=== PATIENT | male | born 1955 | race Caucasian/White ===

== ENCOUNTER 2021-02-22 14:00 | Outpatient (RCR) | payer MEDICAID, SELFPAY | END 2021-02-22 23:59 | disposition home or self-care (01) | LOC: ANHAUDIO 14:00 | PROVIDERS: PCP Internal Medicine; Visit Provider Otolaryngology | DX: Z46.1 Encounter for fitting and adjustment of hearing aid (principal) | CPT/HCPCS: 99199; V5160; V5261 ==

== ENCOUNTER 2021-08-25 15:01 | Inpatient (IN) | payer MEDICARE, MEDICAID, SELFPAY ==
--- NOTE | ~2021-08-25 | US_ITS ---
EXAMINATION: US renal BI DATE: 08/26/2021 09:58 INDICATION: Acute renal insufficiency TECHNIQUE: Multiple ultrasound grayscale images of the kidneys were obtained. COMPARISON: CT dated 08/25/2021 FINDINGS: The right kidney measures 12.1 x 5.1 x 6.4 cm. The left kidney measures 12.2 x 5.7 x 5.4 cm. The kidn eys demonstrate normal echogenicity. There is chronic caliectasis at the right kidney without abnorma l dilation of the renal pelvis. There is diffuse mild cortical thinning at the right kidney. There is no left hydronephrosis.. No stones identified. The bladder is normal with bilateral ureteral jets s een in the bladder on color Doppler. Increased hepatic echogenicity consistent with diffuse hepatic s teatosis. IMPRESSION: 1. Chronic severe caliectasis and mild cortical atrophy of the right kidney. Reviewed, dictated and finalized at location A.
--- NOTE | ~2021-08-25 | CT_ITS ---
EXAMINATION: CT abdomen pelvis wo con DATE: 08/25/2021 17:45 INDICATION: Abdominal pain. TECHNIQUE: Computed tomography (CT) of the abdomen and pelvis was performed without intravenous contr ast. Automated exposure control and iterative reconstruction technique were employed. The dose-length product was 1143.96 mGy-cm. COMPARISON: CT abdomen and pelvis 07/06/2016 FINDINGS: The visualized portions of the lung bases demonstrate mild atelectasis. No pleural effusion . The heart size is normal. There are calcifications of the aortic valve. No pericardial effusion. Th ere is diffuse hepatic steatosis. Calcifications in the spleen are consistent with old granulomatous disease. The gallbladder, pancreas, and adrenal glands are normal. There is a 12 mm cyst in left kidn ey. There is cortical thinning of right kidney. There are seven stones in right kidney measuring up t o 11 mm. There is chronic enlargement of the calyces of right kidney. There is contrast in the right renal collecting system and bladder. The prostate is mildly enlarged. The appendix is normal. There a re no dilated loops of bowel. There is prominent fat in the inguinal canals bilaterally that may be s mall hernias. There is subcutaneous gas in left lower quadrant. There is severe lumbar spondylosis. IMPRESSION: 1. Nonobstructing right kidney stones. 2. Mild atrophy of right kidney. Chronic severe dilatation of the calyces in right kidney. 3. Subcutaneous gas in left lower quadrant, which may be an injection site. Reviewed, dictated and finalized at location A. IMPRESSION: 1. Nonobstructing right kidney stones. 2. Mild atrophy of right kidney. Chronic severe dilatation of the calyces in ri ght kidney. 3. Subcutaneous gas in left lower quadrant, which may be an injection site.
--- NOTE | ~2021-08-25 | XR_ITS ---
EXAMINATION: XR chest 1V portable DATE: 08/25/2021 16:12 INDICATION: Stupor. Dizziness. TECHNIQUE: A single frontal view of the chest was obtained. COMPARISON: Chest 2 views 07/06/2016, chest CT 07/06/2016 FINDINGS: There are lucencies in the lungs, consistent with emphysema. No pleural effusion or pneumot horax. The heart size is normal. IMPRESSION: 1. Emphysema. Reviewed, dictated and finalized at location A. IMPRESSION: 1. Emphysema.
[2021-08-25 14:58] VITALS: BP 125/67; PULSE 79; RESP 20; TEMP 36.6; O2SAT 92
[2021-08-25 16:53] LABS: Basophils Absolute Auto 0.1 K/mm3 (0.0-0.1); Basophils Percent Auto 0.4 % (0.2-1.2); Eosinophils Absolute Auto 0.2 K/mm3 (0-0.3); Eosinophils Percent Auto 1.4 % (0-4.4); Hematocrit 41.9 % (42.0-52.0); Hemoglobin 13.9 g/dL (14.0-18.0); Immature Granulocyte Absolute 0.08 K/mm3 (0.00-0.031); Immature Granulocyte Percent A 0.6 % (0-0.5); Lymphocytes Absolute Auto 1.11 K/mm3 (0.9-3.2); Lymphocytes Percent Auto 8.9 % (18.3-44.2); Mean Corpuscular HGB Conc 33.2 g/dl (32-36); Mean Corpuscular Volume 93.3 fl (80-100); Mean Platelet Volume 9.7 fl (7.4-10.4); Monocytes Absolute Auto 1.3 K/mm3 (0.1-0.6); Monocytes Percent Auto 10.1 % (2.6-8.5); Neutrophils Absolute Auto 9.8 K/mm3 (1.3-6.7); Neutrophils Percent Auto 78.6 % (45.5-73.1); Platelet Count Result 303 k/mm3 (150-375); Red Blood Count 4.49 M/mm3 (4.6-6.20); Red Cell Distribution Width 14.1 % (11.5-14.5); White Blood Count 12.4 K/mm3 (4.5-10.0)
[2021-08-25 17:03] LABS: Alanine Aminotransferase 22 U/L (4-50); Albumin Level 4.4 g/dL (3.5-5.1); Alkaline Phosphatase 126 U/L (38-126); Anion Gap 8 mmol/L (8-16); Aspartate Amino Transferase 37 U/L (17-59); Bilirubin,Total 0.5 mg/dL (0.2-1.3); Blood Urea Nitrogen 31 mg/dL (9-20); Calcium 8.7 mg/dL (8.4-10.2); Carbon Dioxide 25 mmol/L (22-30); Chloride 102 mmol/L (98-107); Estimated CRCL calculation 28 ml/min; Estimated Glomerular Filt Rate 24; Glucose 120 mg/dL (65-110); Lipase 146 U/L (23-300); Potassium 4.5 mmol/L (3.4-5.0); Sodium 135 mmol/L (137-145)
[2021-08-25] MEDS: SODIUM CHLORIDE 0.9% IV 1,000 ML 999 ML IV CONT (17:08)
--- NOTE | 2021-08-25 18:24 | ED.ABDPAIN ---
HPI - Abdominal Pain General Chief Complaint: Abdominal Pain Stated Complaint: weakness & dizziness Time Seen by Provider: 08/25/21 15:19 Source: patient Mode of arrival: ambulatory Limitations: no limitations History of Present Illness HPI narrative: 66-year-old male poor historian left AMA from [facility] yesterday returning today because he said there is something wrong with his blood or abnormal labs and they had wanted him to stay. No fever, no vomiting, does complain of diffuse abdominal pain worse with movement over the last day prior to arrival. No hematemesis no bright red blood per rectum no melena. Patient states he was seen for chest pain and they wanted him to stay-- no chest pain currently. No shortness of breath, no fever. No other complaints. Pertinent past history: kidney stones Onset (ago): day(s) (1) Quality: cramping Exacerbating factors: movement Relieving factors: rest Associated symptoms: denies other symptoms and constipation Related Data Home Medications Medication Instructions Recorded Confirmed Saulkyebernadine Aerosphere 1 inh INHALATION Q6-8H PRN 08/25/21 08/25/21 allopurinol 100 mg PO DAILY 08/25/21 08/25/21 amlodipine 2.5 mg PO DAILY 08/25/21 08/25/21 finasteride 5 mg PO DAILY 08/25/21 08/25/21 gabapentin 300 mg PO HS 08/25/21 08/25/21 lisinopril 10 mg PO DAILY 08/25/21 08/25/21 metoprolol succinate 25 mg PO DAILY 08/25/21 08/25/21 prednisone 20 mg PO BID 08/25/21 08/25/21 quetiapine 50 mg PO HS 08/25/21 08/25/21 rosuvastatin 10 mg PO DAILY 08/25/21 08/25/21 tamsulosin 0.4 mg PO HS 08/25/21 08/25/21 Allergies Allergy/AdvReac Type Severity Reaction Status Date / Time poison isabelle extract Allergy Mild RASH Verified 08/25/21 20:12 Review of Systems Review of Systems: CONSTITUTIONAL: no fever, no weight loss, no confusion EYES: no vision changes, no eye pain ENT: no rhinorrhea, no sore throat, no difficulty swallowing CARDIOVASCULAR: no chest pain, no leg edema, no palpitations RESPIRATORY: positive for cough, no shortness of breath, no hemoptysis GASTROINTESTINAL: positive for abdominal pain, no nausea, no vomiting, no diarrhea GENITOURINARY: no flank pain, no dysuria, no hematuria SKIN: no rash, no jaundice MUSCULOSKELETAL: no back pain, no trauma. NEUROLOGIC: No headache, no dizziness, no focal weakness PSYCHIATRIC: No hallucinations, no suicidal ideation PMFSH Past Medical History Medical History BPH (benign prostatic hyperplasia) CAD (coronary artery disease) Minimal blockages treated medically Chronic back pain Due to a pinched nerve COPD (chronic obstructive pulmonary disease) Gout Hyperlipidemia Hypertension Surgical History Surgical History H/O cardiac catheterization Minimal blockages. History of kidney surgery Right kidney History of shoulder surgery On the left Family History Family History Mother Family history of malignant neoplasm of breast in first degree relative Father Family history of throat cancer Sibling Cancer of back Social History Social History Social History: The patient is . He does have a significant other. Is a son and a daughter. The son is the durable power civil litigation attorney for healthcare. The patient is listed as a full code. The patient was a heavy smoker and stated that he quit smoking about 4 months ago. The patient is retired from the [employer]. The patient stated that he drinks 15 beers in a 3 week period. Smoking packs per day: 1.5 Smoking cigarettes per day: 30.0 Years smoked: 30 Smoking pack-years: 45.00 Smoking status: Former smoker Tobacco type: cigarettes Second hand tobacco smoke exposure: Yes Smoking end date: 11/18/04 Alcohol intake: current Drinks per week: 3 Substance use: lj
[2021-08-25 18:32] LABS: Add Urine Microscopic? YES; Appearance Urine Clear (Clear); Bilirubin Urine Negative (Negative); Blood Urine Negative (Negative); Color Urine Amber (Yellow); Glucose Urine UA Negative (Negative); Ketones Urine Negative (Negative); Leukocyte Esterase Ur Trace LEU/UL (Negative); Mucus Urine Moderate /lpf; Nitrate Urine Negative (Negative); Protein Urine 2+ mg/dL (Negative); Specific Grav Ur 1.026 (1.001-1.035); Squamous Epithelial Cell Urine Rare /hpf (Few); Urobilinogen Urine Negative mg/dL (<2.0); WBC Urine 21-30 /hpf
--- NOTE | 2021-08-25 18:53 | PC.NURSE ---
Pt poor historian and does not know what medications he takes. Recently filled medications pulled from pharmacy record. EDP aware
--- NOTE | 2021-08-25 20:15 | ADMGEN ---
This patient, Renato García, was admitted to Medical Room 345-01. Patient/family oriented to hospital policies and general routines including ID bracelet, bed and alarms, visiting hours, pain management, procedures, bathroom and other care routines, personal items, smoking policy, room service/diet, and visiting hours. Information on how to activate the Rapid Response Team has been discussed. Patient/Family are encouraged to report perceived risks to care and to ask questions if they do not understand what they are told or what they should do.
[2021-08-25 20:47] VITALS: BP 109/69; PULSE 62; RESP 20; TEMP 36.3; O2SAT 95
--- NOTE | 2021-08-25 23:37 | PM.IMHP ---
H&P: HPI History of Present Illness Date/Time: 08/25/21 23:37 this is a 66-year-old male patient who has a past medical history of having COPD, hypertension, and coronary artery disease. The patient stated that he did several things with his grand children today and he was visiting his girlfriend when he felt ill. The patient felt really dizzy and his ears started to ring the patient stated that he felt like he was going to pass out fell down to his knees. His family got him on the couch and they were going to drive him to the hospital. The patient stated that he had severe abdominal pain. The patient stated that he was at [facility] last night and was told that he has an infection. He stated that he did not sign out against medical advice but he convinced ER doctor to let him go home. The patient stated that he had some abnormal labs but he was not sure what were. 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 Patient denies knowing about any kidney stones. His white count was noted to be 12.5. H&H is 13.9 and 41.9 the patient has been on prednisone but does not recall how long he has been on it when he started taking it. His CT of the abdomen pelvis was read as nonobstructing right kidney stone. Mild atrophy of right kidney, chronic severe dilatation of the calcis is in right kidney. Subcutaneous gas and left lower quadrant which may be an injection site. Chest x-ray was read as emphysema. His urine had trace leukocyte Estrace 2130 wbc's and moderate amount of mucus. The patient was started on ceftriaxone and IV fluids. The patient is being admitted to inpatient services on the date of service of 08/25/2020 Chief Complaint: Abdominal pain weakness Review of Systems Review of Systems: All systems reviewed & are unremarkable except as noted in HPI and below Constitutional: Constitutional: Reports as per HPI and Reports no additional constitutional complaints Eyes: Eyes: Reports as per HPI and Reports no additional eye complaints ENT: Reports system reviewed and no additional complaints, except as documented and Reports Normal hearing present Cardiovascular: Cardiovascular: Reports no additional cardiovascular complaints Respiratory: Respiratory: Reports no additional respiratory complaints and Reports no additional respiratory complaints Gastrointestinal: Gastrointestinal: Reports as per HPI and Reports no additional gastrointestinal complaints Musculoskeletal: Musculoskeletal: Reports no additional musculoskeletal complaints Integumentary/Breasts: Skin/Breast: Reports system reviewed and no additional complaints, except as docu and Reports as per HPI Neurologic: Reports system reviewed and no additional complaints, except as documented, Reports as per HPI and Reports Normal hearing present Psychiatric: Psychiatric: Reports no additional psychiatric complaints and Reports as per HPI Endocrine: Endocrine: Reports no additional endocrine complaints Hematologic/Lymphatic: Hematologic/Lymphatic: Reports no additional hematologic/lymphatic complaints Allergic/Immunologic: Allergic/Immunologic: Reports no additional allergic/immunologic complaints [facility] Past Medical History Medical History (Updated 08/25/21 @ 23:57 by Augustina Starkey NP) BPH (benign prostatic hyperplasia) CAD (coronary artery disease) Minimal blockages treated medically Chronic back pain Due to a pinched nerve COPD (chronic obstructive pulmonary disease) Gout Hyperlipidemia Hypertension Surgical History Surgical History (Updated 08/25/21 @ 23:46 by Augustina Starkey NP) H/O cardiac catheterization Minimal blockages. History of kidney surgery Right kidney History of shoulder surgery On the left Family History Family History (Reviewed
[2021-08-25] MEDS: TAMSULOSIN HCL 0.4 MG CAPSULE PO (23:57)
[2021-08-25] MEDS: ATORVASTATIN 40 MG TABLET PO (23:57)
[2021-08-25] MEDS: QUEtiapine FUMARATE 25 MG TABLET 50 MG PO (23:57)
[2021-08-25] MEDS: GABAPENTIN 300 MG CAPSULE PO (23:57)
[2021-08-26] VITALS (12 sets, daily range): BP systolic 114–137; BP diastolic 60–77; PULSE 68–82; RESP 16–20; TEMP 36.1–36.9; O2SAT 94–95; BMI 29.7
[2021-08-26 06:11] LABS: Lactic Acid Reflex 0.7 mmol/L (0.7-2.1)
[2021-08-26 06:15] LABS: Alanine Aminotransferase 18 U/L (4-50); Albumin Level 4.1 g/dL (3.5-5.1); Alkaline Phosphatase 125 U/L (38-126); Anion Gap 9 mmol/L (8-16); Aspartate Amino Transferase 26 U/L (17-59); Bilirubin,Total 0.4 mg/dL (0.2-1.3); Blood Urea Nitrogen 34 mg/dL (9-20); CRP 3.3 mg/dL (<1.0); Calcium 8.6 mg/dL (8.4-10.2); Carbon Dioxide 20 mmol/L (22-30); Chloride 105 mmol/L (98-107); Estimated CRCL calculation 31 ml/min; Estimated Glomerular Filt Rate 30; Glucose 108 mg/dL (65-110); Magnesium 2.1 mg/dL (1.6-2.3); Potassium 4.3 mmol/L (3.4-5.0); Sodium 134 mmol/L (137-145)
[2021-08-26 07:22] LABS: Thyroid Stimulating Hormone Reflex 0.857 uIU/mL (0.465-4.68)
[2021-08-26 09:23] LABS: Creatine Kinase 100 U/L (55-170)
[2021-08-26] MEDS: AZITHROMYCIN 250 MG TABLET 500 MG PO (09:37)
[2021-08-26] MEDS: amLODIPine BESYLATE 2.5 MG TABLET PO (09:37)
[2021-08-26] MEDS: FINASTERIDE 5 MG TABLET PO (09:37)
[2021-08-26] MEDS: allopurinoL 100 MG TABLET PO (09:37)
[2021-08-26] MEDS: predniSONE 20 MG TABLET PO ×2 (09:37→16:57)
[2021-08-26] MEDS: METOPROLOL SUCCINATE EXT REL 25 MG TABCR PO (09:37)
[2021-08-26] MEDS: HEPARIN SODIUM 5,000 UNITS/ML VIAL 5000 UNITS SUB-Q ×2 (09:38→20:05)
[2021-08-26] MEDS: ROSUVASTATIN 10 MG TABLET PO (09:38)
--- NOTE | 2021-08-26 10:23 | PC.NURSE ---
spoke with patient about inhaler, patient will try to have someone to bring it in so that he can use it during his stay here.
--- NOTE | 2021-08-26 10:40 | PM.CNNEP ---
Assessment and Plan Assessment and plan (1) VICTORIA (acute kidney injury): Code(s): N17.9 - Acute kidney failure, unspecified Status: Acute Assessment and Plan: The patient has acute kidney injury. We do not have old records but I am assuming his baseline creatinine is normal since he is getting to different forms of nonsteroidal anti-inflammatory agents simultaneously. He apparently has some issue with his right kidney with robotic surgery and kidney stone but the patient denies any cancer. He seems to have lost some nephron mass in the right kidney. Etiology for the high creatinine could be multifactorial. Certainly the nonsteroidal anti-inflammatory agents, even though they have been taken chronically, would make any other cause of acute kidney injury more substantial. The patient has a UTI. He has hydronephrosis in the right kidney. We probably should have a urologist see the patient just to make sure he does not need a percutaneous stent. Given that the hydronephrosis is probably chronic he may not needone. The patient has not been feeling well and has abdominal pain and so may be dehydrated. His chest x-ray is clear and has no swelling and his lungs sound good so I think we can continue IV fluids for another day since his creatinine did improve. Other causes of kidney disease include vascular issues, glomerulonephritis, and interstitial nephritis which would be less likely in this clinical scenario. Currently is creatinine has fallen from 2.7-2.2. He did receive some IV fluids yesterday and his UTI has been treated possibly this is the reason. At this point we will see what the ultrasound of the kidneys shows. Will get urine electrolytes. Check a CPK. Continue IV fluids. Continue antibiotics. See what Urology says. (2) Acute UTI: Code(s): N39.0 - Urinary tract infection, site not specified Status: Acute Assessment and Plan: Cultures are pending. The patient is on ceftriaxone (3) Chronic back pain: Code(s): M54.9 - Dorsalgia, unspecified; G89.29 - Other chronic pain Status: Chronic (4) COPD (chronic obstructive pulmonary disease): Code(s): J44.9 - Chronic obstructive pulmonary disease, unspecified Status: Chronic Assessment and Plan: The the the patient stopped smoking a while back. (5) Hyperlipidemia: Code(s): E78.5 - Hyperlipidemia, unspecified Status: Chronic Assessment and Plan: He does not need 2 different statins. I will stop the 8 atorvastatin (6) Hypertension: Code(s): I10 - Essential (primary) hypertension Status: Chronic Assessment and Plan: The patient is on lisinopril, metoprolol, and amlodipine. Lisinopril is on hold. Will watch the blood pressure going forward (7) Gout: Code(s): M10.9 - Gout, unspecified Status: Chronic Assessment and Plan: He is on allopurinol History of Present Illness Reason for Consult Consult date: 08/26/21 Chief Complaint Chief complaint: Acute renal failure; UTI History of Present Illness Narrative: Renato is a very pleasant 66-year-old gentleman who has chronic back pain, hyperlipidemia, hypertension, BPH, gout, COPD, some urologic procedure at [facility] involving a stent and robotic surgery. He says he was not told that he had cancer. He also told me that he had kidney stones in the past. The patient was doing well until he developed weakness and dizziness. This was followed by abdominal discomfort. The patient went to [facility] the day before admission here but left there and eventually came to [facility]. He was evaluated in the emergency room. He is found to have an elevated white cell count. His urinalysis showed some white cells. Blood and urine cultures were checked and he was placed on antibiotics. CT was done showing mild atrophy of the right kidney chronic severe dilatation of the calices in the r
[2021-08-26] MEDS: HYDROcodone/acetaminophen (*CRX) 5-325 MG TABLET 1 TAB PO ×3 (12:46→21:32)
[2021-08-26 12:47] LABS: Creatine Kinase 96 U/L (55-170)
[2021-08-26] MEDS: SODIUM CHLORIDE 0.9% IV 1,000 ML 75 ML IV CONT (12:47)
[2021-08-26 13:38] LABS: Total Protein Urine Random 26 mg/dL
[2021-08-26 13:43] LABS: Sodium Urine Random 55 meq/L
--- NOTE | 2021-08-26 15:41 | PM.IMPN ---
Progress Note: A&P Assessment and Plan (1) VICTORIA (acute kidney injury): Code(s): N17.9 - Acute kidney failure, unspecified Status: Acute Assessment and Plan: [facility] records pending Renal ultrasound pending CT abdomen pelvis with nonobstructing kidney right kidney stones mild atrophy of right kidney chronic severe dilatation of the calluses in right kidney prostate is mildly enlarged Creatinine improving Avoid NSAIDs discussed with the patient (2) COPD (chronic obstructive pulmonary disease): Code(s): J44.9 - Chronic obstructive pulmonary disease, unspecified Status: Chronic Assessment and Plan: The patient is currently on prednisone and azithromycin. This could have elevated his white count as well. Continue with his inhalers. The patient stated he does not like to use his albuterol inhaler because it makes him too nervous. Continue with Singulair (3) Chronic back pain: Code(s): M54.9 - Dorsalgia, unspecified; G89.29 - Other chronic pain Status: Chronic Assessment and Plan: The patient is on gabapentin in the [facility] to sleep at night. The patient stated that he quit smoking so that he could possibly get back surgery. He stated he has a pinched nerve in his back. He is on 2 doses of NSAIDs at home which is recommended to be stopped Will start [place] 5/325q.6 hours p.r.n. (4) BPH (benign prostatic hyperplasia): Code(s): N40.0 - Benign prostatic hyperplasia without lower urinary tract symptoms Status: Chronic Assessment and Plan: Continue with finasteride and Flomax (5) Hyperlipidemia: Code(s): E78.5 - Hyperlipidemia, unspecified Status: Chronic Assessment and Plan: Continue with Lipitor. The patient tells me that he has a history of having coronary artery disease but just had minimal blockages. (6) Hypertension: Code(s): I10 - Essential (primary) hypertension Status: Chronic Assessment and Plan: Continue with amlodipine and metoprolol. Lisinopril is on hold due to his acute renal failure (7) Gout: Code(s): M10.9 - Gout, unspecified Status: Chronic Assessment and Plan: Continue with allopurinol for now however we may need to stop this due to his renal function. (8) Acute UTI: Code(s): N39.0 - Urinary tract infection, site not specified Status: Acute Assessment and Plan: The patient was empirically started on Rocephin. Blood cultures and urine cultures are pending. Subjective Date/time seen: 08/26/21 15:41 Interval history: HPI: this is a 66-year-old male patient who has a past medical history of having COPD, hypertension, and coronary artery disease. The patient stated that he did several things with his grand children today and he was visiting his girlfriend when he felt ill. The patient felt really dizzy and his ears started to ring the patient stated that he felt like he was going to pass out fell down to his knees. His family got him on the couch and they were going to drive him to the hospital. The patient stated that he had severe abdominal pain. The patient stated that he was at [facility] last night and was told that he has an infection. He stated that he did not sign out against medical advice but he convinced ER doctor to let him go home. The patient stated that he had some abnormal labs but he was not sure what were. 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 Patient denies knowing about any kidney stones. His white count was noted to be 12.5. H&H is 13.9 and 41.9 the patient has been on prednisone but does not recall how long he has been on it when he started taking it. His CT of the abdomen pelvis was read as nonobstructing right kid
[2021-08-26 18:48] LABS: Creatinine Urine 425.7 mg/dL; Ur Ttl Prot Creatinine Ratio 0.06 mg/mg (0-0.20)
[2021-08-26] MEDS: QUEtiapine FUMARATE 25 MG TABLET 50 MG PO (20:05)
[2021-08-26] MEDS: GABAPENTIN 300 MG CAPSULE PO (20:05)
[2021-08-26] MEDS: TAMSULOSIN HCL 0.4 MG CAPSULE PO (20:05)
[2021-08-27] VITALS: PULSE 64
[2021-08-27] MEDS: SODIUM CHLORIDE 0.9% IV 1,000 ML 75 ML IV CONT (03:12)
[2021-08-27] MEDS: HYDROcodone/acetaminophen (*CRX) 5-325 MG TABLET 1 TAB PO ×2 (03:13→09:58)
[2021-08-27 03:19] VITALS: BP 129/77; PULSE 76; RESP 16; TEMP 36.1; O2SAT 97
[2021-08-27 04:00] VITALS: PULSE 67
[2021-08-27 06:04] LABS: Basophils Percent Auto 0.1 % (0.2-1.2); Eosinophils Percent Auto 0.1 % (0-4.4); Hemoglobin 12.9 g/dL (14.0-18.0); Immature Granulocyte Absolute 0.07 K/mm3 (0.00-0.031); Immature Granulocyte Percent A 0.5 % (0-0.5); Lymphocytes Absolute Auto 0.89 K/mm3 (0.9-3.2); Mean Corpuscular HGB Conc 33.1 g/dl (32-36); Mean Corpuscular Hemoglobin 31.1 pg (26-34); Mean Platelet Volume 10.3 fl (7.4-10.4); Monocytes Absolute Auto 0.7 K/mm3 (0.1-0.6); Monocytes Percent Auto 4.6 % (2.6-8.5); Neutrophils Absolute Auto 13.2 K/mm3 (1.3-6.7); Neutrophils Percent Auto 88.7 % (45.5-73.1); Platelet Count Result 311 k/mm3 (150-375); Red Blood Count 4.15 M/mm3 (4.6-6.20); Red Cell Distribution Width 13.6 % (11.5-14.5); White Blood Count 14.8 K/mm3 (4.5-10.0)
[2021-08-27 06:17] LABS: Albumin Level 4.1 g/dL (3.5-5.1); Anion Gap 8 mmol/L (8-16); Blood Urea Nitrogen 25 mg/dL (9-20); Calcium 8.8 mg/dL (8.4-10.2); Carbon Dioxide 21 mmol/L (22-30); Chloride 104 mmol/L (98-107); Estimated CRCL calculation 60 ml/min; Estimated Glomerular Filt Rate > 60; Glucose 159 mg/dL (65-110); Phosphorus 3.4 mg/dL (2.5-4.5); Potassium 4.5 mmol/L (3.4-5.0); Sodium 133 mmol/L (137-145)
[2021-08-27 08:00] VITALS: PULSE 60
[2021-08-27 09:54] VITALS: PULSE 74
[2021-08-27] MEDS: METOPROLOL SUCCINATE EXT REL 25 MG TABCR PO (09:54)
[2021-08-27] MEDS: HEPARIN SODIUM 5,000 UNITS/ML VIAL 5000 UNITS SUB-Q (09:54)
[2021-08-27] MEDS: allopurinoL 100 MG TABLET PO (09:54)
[2021-08-27] MEDS: FINASTERIDE 5 MG TABLET PO (09:55)
[2021-08-27] MEDS: predniSONE 20 MG TABLET PO (09:55)
[2021-08-27] MEDS: ROSUVASTATIN 10 MG TABLET PO (09:55)
[2021-08-27] MEDS: amLODIPine BESYLATE 2.5 MG TABLET PO (09:55)
[2021-08-27] MEDS: AZITHROMYCIN 250 MG TABLET 500 MG PO (09:55)
[2021-08-27 12:00] VITALS: PULSE 77
--- NOTE | 2021-08-27 12:30 | PM.PNNEP ---
Progress Note: A&P Assessment and Plan (1) VICTORIA (acute kidney injury): Code(s): N17.9 - Acute kidney failure, unspecified Status: Acute Assessment and Plan: The patient has acute kidney injury. Urine electrolytes are pre renal. Renal ultrasound shows the mildly small right kidney consistent with robotic surgery thereon. Most likely dehydration is the main culprit of his renal failure. The nonsteroidals may have played a small secondary role.. His creatinine has returned to normal with IV fluids. He should avoid nonsteroidal anti-inflammatory agent if possible. This may be difficult with his pain situation however. If he starts them again he should get his creatinine checked fairly frequently and stay well hydrated. Okay for discharge when others okay (2) Acute UTI: Code(s): N39.0 - Urinary tract infection, site not specified Status: Acute Assessment and Plan: Cultures are pending. The patient is on ceftriaxone (3) Chronic back pain: Code(s): M54.9 - Dorsalgia, unspecified; G89.29 - Other chronic pain Status: Chronic (4) COPD (chronic obstructive pulmonary disease): Code(s): J44.9 - Chronic obstructive pulmonary disease, unspecified Status: Chronic Assessment and Plan: The the the patient stopped smoking a while back. (5) Hyperlipidemia: Code(s): E78.5 - Hyperlipidemia, unspecified Status: Chronic Assessment and Plan: He does not need 2 different statins. I will stop the 8 atorvastatin (6) Hypertension: Code(s): I10 - Essential (primary) hypertension Status: Chronic Assessment and Plan: The patient is on lisinopril, metoprolol, and amlodipine. Lisinopril is on hold. Will watch the blood pressure going forward (7) Gout: Code(s): M10.9 - Gout, unspecified Status: Chronic Assessment and Plan: He is on allopurinol Subjective Date/time seen: 08/27/21 12:30 Interval history: Renato is feeling better today. No chest pain or shortness of breath Review of Systems Cardiovascular: Cardiovascular: Reports no additional cardiovascular complaints Respiratory: Respiratory: Reports no additional respiratory complaints Gastrointestinal: Gastrointestinal: Reports no additional gastrointestinal complaints Genitourinary: Genitourinary: Reports no additional male genitourinary complaints Exam Narrative: WDWN in NAD skin no rash head ncat lungs clear cor reg no rub abd BS+ nontender and soft ext no edema. Objective Data Vital Signs Vital Signs: Vital Signs - 24 hr 08/26/21 14:00 08/26/21 16:00 08/26/21 20:00 Temperature 36.9 C Pulse Rate 80 73 79 Respiratory Rate 18 Blood Pressure 137/77 Pulse Oximetry 94 08/26/21 20:14 08/26/21 21:43 08/27/21 00:00 Temperature 36.8 C Pulse Rate 68 64 Respiratory Rate 16 Blood Pressure 114/74 Pulse Oximetry 95 95 08/27/21 03:19 08/27/21 04:00 08/27/21 08:00 Temperature 36.1 C L Pulse Rate 76 67 60 Respiratory Rate 16 Blood Pressure 129/77 Pulse Oximetry 97 08/27/21 09:54 Temperature Pulse Rate 74 Respiratory Rate Blood Pressure Pulse Oximetry Intake/Output Intake/Output: Intake & Output 08/24/21 08/25/21 08/26/21 08/27/21 23:59 23:59 23:59 23:59 Intake Total 3236 227 6845 Output Total 950 450 Balance 1050 -320 960 Meds/Results Medications: Active Medications Generic Name Dose Route Start Last Admin Trade Name Freq PRN Reason Stop Dose Admin Hydrocodone Bitart/Acetaminophen 1 tab 08/26/21 12:25 08/27/21 09:58 Hydrocodone/Acetaminophen (*Crx) 5-325 Mg Tablet PO 1 tab Q4H PRN Administration Pain Rated 4-6 Allopurinol 100 mg 08/26/21 08:00 08/27/21 09:54 Allopurinol 100 Mg Tablet PO 100 mg DAILY@0800 ALEX Administration Amlodipine Besylate 2.5 mg 08/26/21 09:00 08/27/21 09:55 Amlodipine Besylate 2.5 Mg Tablet PO 2.5 mg DAILY S
--- NOTE | 2021-08-27 12:34 | PM.DS ---
DS: Admitting Diagnosis Discharge Date 08/27/2021 Admitting Diagnosis Abdominal pain weakness dizziness DS: Discharge Diagnosis Discharge Diagnosis (1) VICTORIA (acute kidney injury): Code(s): N17.9 - Acute kidney failure, unspecified Status: Acute Assessment and Plan: [facility] records pending was recently admitted for the same thing Renal ultrasound with chronic severe caliectasis and mild cortical atrophy of the right kidney. He did have some sort of surgery in the past on the right kidney and removal of a tumor which was not malignant. Will have him follow-up with Urology for ongoing care CT abdomen pelvis with nonobstructing kidney right kidney stones mild atrophy of right kidney chronic severe dilatation of the calluses in right kidney prostate is mildly enlarged Creatinine on admission at 2.7, improved down to baseline with IV hydration likely suggestive of dehydration and use of NSAIDs as 1 of the etiology. Avoid NSAIDs discussed with the patient he uses ibuprofen as well as naproxen together for his chronic back pain Advised to discuss with his primary care doctor for alternative pain management (2) COPD (chronic obstructive pulmonary disease): Code(s): J44.9 - Chronic obstructive pulmonary disease, unspecified Status: Chronic Assessment and Plan: The patient is currently on prednisone and azithromycin. This could have elevated his white count as well. Continue with his inhalers. The patient stated he does not like to use his albuterol inhaler because it makes him too nervous. Continue with Singulair Will finish his azithromycin course as previously prescribed (3) Chronic back pain: Code(s): M54.9 - Dorsalgia, unspecified; G89.29 - Other chronic pain Status: Chronic Assessment and Plan: [facility]. The patient stated that he quit smoking so that he could possibly get back surgery. He stated he has a pinched nerve in his back. He is on 2 doses of NSAIDs at home which is recommended to be stopped Started on [place] 5/325q.6 hours p.r.n. Pain management discussion with primary care advised Advised to avoid any NSAIDs due to his renal failure (4) BPH (benign prostatic hyperplasia): Code(s): N40.0 - Benign prostatic hyperplasia without lower urinary tract symptoms Status: Chronic Assessment and Plan: Continue with finasteride and Flomax (5) Hyperlipidemia: Code(s): E78.5 - Hyperlipidemia, unspecified Status: Chronic Assessment and Plan: Continue with Lipitor. The patient tells me that he has a history of having coronary artery disease but just had minimal blockages. (6) Hypertension: Code(s): I10 - Essential (primary) hypertension Status: Chronic Assessment and Plan: Continue with amlodipine and metoprolol. Lisinopril is on hold due to his acute renal failure resumed at discharge as renal failure has been back to normal (7) Gout: Code(s): M10.9 - Gout, unspecified Status: Chronic Assessment and Plan: Continue with allopurinol for now however we may need to stop this due to his renal function. (8) Acute UTI: Code(s): N39.0 - Urinary tract infection, site not specified Status: Acute Assessment and Plan: The patient was empirically started on Rocephin. Blood cultures have been no growth Urine culture has been pending will switch it to cephalexin at discharge DS: Summary Hospital Course Hospital Course: See above Time Spent with Patient Time attestation: Total time spent providing and/or coordinating discharge services: 45 minutes Exam Narrative: GENERAL: The patient is well developed, not in acute distress HEENT: Nonicteric sclerae, PERRLA, EOMI. Oropharynx clear. Moist mucous membranes. Conjunctivae appear well perfused. CHEST: Chest wall is nontender. HEART: Regular rate and rhythm without murmur, rubs,
== END 2021-08-27 13:50 | disposition home or self-care (01) | DRG 683 ==
LOC: ANHED 15:51 → ANH3MED 19:05
PROVIDERS: Emergency Medicine; Internal Medicine Nephrology; Nurse Practitioner; Admitting Provider Family Medicine; Emergency Provider Emergency Medicine; PCP Internal Medicine; Visit Provider Internal Medicine
DX: N17.9 Acute kidney failure, unspecified (principal); N39.0 Urinary tract infection, site not specified; J44.9 Chronic obstructive pulmonary disease, unspecified; N40.0 Benign prostatic hyperplasia without lower urinary tract symptoms; E78.5 Hyperlipidemia, unspecified; I10 Essential (primary) hypertension; G89.29 Other chronic pain; I25.10 Atherosclerotic heart disease of native coronary artery without angina pectoris; M54.9 Dorsalgia, unspecified; M10.9 Gout, unspecified; Z87.891 Personal history of nicotine dependence; Z79.899 Other long term (current) drug therapy
CPT/HCPCS: 36415; 71045; 74176; 76775; 80053; 80069; 81001; 82550; 82570; 83605; 83690; 83735; 84156; 84300; 84443; 85025; 86140; 87040; 87086; 87088; 96360; 99285; A9270; J0696; J1644; J7030; J7512

== ENCOUNTER 2021-09-22 12:55 | Outpatient (RCR) | payer MEDICARE, MEDICAID, SELFPAY | END 2021-09-22 23:59 | disposition home or self-care (01) | LOC: ANHAUDIO 12:55 | PROVIDERS: PCP Internal Medicine; Visit Provider Otolaryngology | DX: Z46.1 Encounter for fitting and adjustment of hearing aid (principal) | CPT/HCPCS: 99199 ==

== ENCOUNTER 2021-10-12 05:06 | Inpatient (IN) | payer MEDICARE, MEDICAID, SELFPAY ==
[2021-10-12] VITALS (15 sets, daily range): BP systolic 108–136; BP diastolic 66–95; PULSE 72–96; RESP 12–31; TEMP 36.4–36.8; O2SAT 93–100; BMI 33.7
--- NOTE | ~2021-10-12 | US_ITS ---
EXAMINATION: US art doppler w press LE BI DATE: 10/13/2021 09:17 INDICATION: Decreased pedal pulses TECHNIQUE: Segmental pressures and plethysmographic and Doppler waveforms of the brachial and lower e xtremity arteries were obtained. COMPARISON: None. FINDINGS: Right and left brachial artery pressures of 118 mm Hg and 126 mm Hg, respectively, are concordant (no rmal difference <= 30 mmHg). The right and left high-thigh pressure indices were unable to be obtaine d due to patient body habitus. The right ankle-brachial index (BLUE) is 0.63 (normal >= 0.9-1). The right great toe-brachial index (T BI) is 0.60 (normal >= 0.6-0.8). The right lower extremity segmental pressure gradients are increased between the right above and [id number] popliteal arteries (normal gradients <= 20-30 mmHg betwee n adjacent levels on the same leg or the same levels on the two legs). Arterial waveforms are biphasi c with brisk systolic upstrokes throughout the arteries of the right lower limb. The left BLUE is 0.67. The left TBI is 0.54. The left lower extremity segmental pressure gradients are normal. Arterial waveforms are biphasic with brisk systolic upstrokes throughout the arteries of the left lower limb. IMPRESSION: 1. Arterial occlusive disease to the bilateral lower limbs with moderately decreased bilateral ABIs. Reviewed, dictated and finalized at location A. MED SURG IMPRESSION: 1. Arterial occlusive disease to the bilateral lower limbs with moderately decr eased bilateral ABIs.
--- NOTE | ~2021-10-12 | XR_ITS ---
XR chest 1V portable 10/13/2021 20:24 Indication: Chest pain Procedure: AP portable chest Comparison: 08/25/2021 and 07/06/2016 Findings: Heart size normal for technique. Mild pulmonary vascular congestion. The lungs are hyperinf lated which is consistent with, but not diagnostic of chronic obstructive pulmonary disease. No focal pneumonia, edema, pleural effusion or pneumothorax. Impression: 1: Mild pulmonary vascular congestion. Reviewed, dictated and finalized at location A. CAR INSPECTOR Impression: 1: Mild pulmonary vascular congestion.
--- NOTE | ~2021-10-12 | XR_ITS ---
EXAMINATION: [id number] INDICATION: Left chest pain TECHNIQUE: A frontal view of the chest and 3 views of the left ribs were obtained. COMPARISON: None. FINDINGS: There are patchy opacities throughout the lungs. No pleural effusion or pneumothorax is nate ntified. The cardiomediastinal silhouette is normal. No displaced rib fracture is identified. IMPRESSION: 1. No displaced rib fracture identified. 2. Patchy bilateral airspace opacities, consistent with pneumonia. Reviewed, dictated and finalized at location A. NESS PERFORMANCE ADVISOR
--- NOTE | 2021-10-12 05:11 | PC.NURSE ---
Pt placed on 2 L NC O2 due to increased WOB - resp rate of 31, placed for comfort and instructed on breathing.
--- NOTE | 2021-10-12 05:18 | ECG_ITS ---
Measurements Intervals [place] Rate: 82 P: 57 MI: 164 QRS: 37 QRSD: 94 T: 64 QT: 343 QTc: 402 Interpretive Statements SINUS RHYTHM ST ELEVATION IN DIFFUSE LEADS- PROBABLY EARLY REPOLARIZATION ABNORMALITY BASELINE ARTIFACT- II, III, AVR, AVL, AVF, V1-V6 BORDERLINE ECG Electronically Signed On 10-12-2021 7:38:08 ELEMENTARY SCHOOL SCIENCE TEACHER by Jonnathan Gamez D.O.
[2021-10-12] MEDS: ONDANSETRON INJ 4 MG/2 ML VIAL IV PUSH (05:27)
[2021-10-12] MEDS: MORPHINE SULFATE (*CRX) 4 MG/ML INJ IV PUSH ×3 (05:30→16:49)
[2021-10-12] MEDS: IPRATROPIUM BR 0.02% INH SOLN 0.5 MG/2.5 ML VIAL INHALATION (05:47)
[2021-10-12] MEDS: ALBUTEROL SULFATE NEB 2.5 MG/0.5 ML INH 5 MG INHALATION (05:48)
[2021-10-12 05:54] LABS: Alveolar/Arterial O2 Gradient 77.7 mmHg; Base Excess ABG 0.1 mEq/l (+/-2.0); Carboxyhemoglobin 1.1 % THb (0-2.0); Fractional Inspired Oxygen 28 %; HCO3 ABG 24.5 mEq/l (22.0-26.0); Methemoglobin ABG 0.4 %THb (0-1.5); Oxygen Content ABG 18.5 %vol (16.0-22.0); Oxygen Saturation ABG 95.4 % (95.0-100.0); Oxyhemoglobin 93.4 % THb (90.0-100.0); PCO2 ABG 39.2 mmHg (35.0-45.0); PO2 ABG 75.7 mmHg (80.0-100.0); Reduced Hemoglobin 5.1 %THb (0-5.0); Total Hemoglobin 14.1 g/dL (12.0-18.0); pH ABG 7.414 (7.350-7.450)
[2021-10-12 05:55] LABS: Modified Allen's Test Pass; Site Drawn LEFT RADIAL
[2021-10-12 05:55] LABS: Alanine Aminotransferase 39 U/L (4-50); Albumin Level 4.5 g/dL (3.5-5.1); Alkaline Phosphatase 90 U/L (38-126); Anion Gap 8 mmol/L (8-16); Aspartate Amino Transferase 35 U/L (17-59); Bilirubin,Total 0.2 mg/dL (0.2-1.3); Blood Urea Nitrogen 27 mg/dL (9-20); Calcium 9.5 mg/dL (8.4-10.2); Carbon Dioxide 24 mmol/L (22-30); Chloride 100 mmol/L (98-107); Estimated CRCL calculation 75 ml/min; Estimated Glomerular Filt Rate > 60; Glucose 115 mg/dL (65-110); Potassium 4.4 mmol/L (3.4-5.0); Sodium 132 mmol/L (137-145)
[2021-10-12 05:56] LABS: Device NASAL CANNULA
[2021-10-12 06:00] LABS: INR 0.9; Partial Thromboplastin Time 21.9 SECONDS (22.3-36.8)
[2021-10-12 06:00] LABS: Add Urine Microscopic? NO; Appearance Urine Clear (Clear); Bilirubin Urine Negative (Negative); Blood Urine Negative (Negative); Color Urine Straw (Yellow); Glucose Urine UA Negative (Negative); Ketones Urine Negative (Negative); Leukocyte Esterase Ur Negative LEU/UL (Negative); Nitrate Urine Negative (Negative); Protein Urine Negative (Negative); Specific Grav Ur 1.011 (1.001-1.035); Urobilinogen Urine Negative mg/dL (<2.0)
[2021-10-12 06:03] LABS: NT Pro B Type Natriuretic Pept 476 pg/mL (5-100)
[2021-10-12 06:07] LABS: Basophils Absolute Auto 0.1 K/mm3 (0.0-0.1); Basophils Percent Auto 0.3 % (0.2-1.2); Eosinophils Absolute Auto 0.2 K/mm3 (0-0.3); Eosinophils Percent Auto 0.8 % (0-4.4); Hematocrit 41.5 % (42.0-52.0); Hemoglobin 13.6 g/dL (14.0-18.0); Immature Granulocyte Absolute 0.73 K/mm3 (0.00-0.031); Immature Granulocyte Percent A 3.6 % (0-0.5); Lymphocytes Percent Auto 13.9 % (18.3-44.2); Mean Corpuscular HGB Conc 32.8 g/dl (32-36); Mean Corpuscular Hemoglobin 30.9 pg (26-34); Mean Corpuscular Volume 94.3 fl (80-100); Mean Platelet Volume 9.7 fl (7.4-10.4); Monocytes Absolute Auto 1.5 K/mm3 (0.1-0.6); Monocytes Percent Auto 7.5 % (2.6-8.5); Neutrophils Absolute Auto 14.9 K/mm3 (1.3-6.7); Neutrophils Percent Auto 73.9 % (45.5-73.1); Platelet Count Result 312 k/mm3 (150-375); Red Cell Distribution Width 14.9 % (11.5-14.5); White Blood Count 20.2 K/mm3 (4.5-10.0)
[2021-10-12 06:15] LABS: Platelet Estimate Adequate (Adequate); Stomatocytes 1+ (NORMAL)
--- NOTE | 2021-10-12 06:57 | ED.FALL ---
HPI - Fall General Chief Complaint: Fall Stated Complaint: L sided axilla/chest pain Source: patient and EMS Mode of arrival: EMS Limitations: no limitations History of Present Illness HPI Narrative: This is a 66 year old male with history of COPD, Hypertenion, CAD who presents from home for evaluation of rib pain. PAtient states that he fell onto his left blower 2-3 days ago. He had been having minimal pain but tonight he had coughing attack which caused severe pain. He states he has been taking treatment for pneumonia. He reports having a cough with green sputum for 3 weeks. He denies shortness of breath but he was found to be tachypneic on triage. Nursing staff placed patient on 2L NC. He denies hitting his head or LOC during his fall. His pain is worse with movement and breathing. HE denies nausea, vomiting or fever. Related Data Home Medications Medication Instructions Recorded Confirmed Sonalii Aerosphere 1 inh INHALATION Q6-8H PRN 08/25/21 08/25/21 allopurinol 100 mg PO DAILY 08/25/21 08/25/21 amlodipine 2.5 mg PO DAILY 08/25/21 08/25/21 finasteride 5 mg PO DAILY 08/25/21 08/25/21 gabapentin 300 mg PO HS 08/25/21 08/25/21 lisinopril 10 mg PO DAILY 08/25/21 08/25/21 metoprolol succinate 25 mg PO DAILY 08/25/21 08/25/21 prednisone 20 mg PO BID 08/25/21 08/25/21 quetiapine 50 mg PO HS 08/25/21 08/25/21 rosuvastatin 10 mg PO DAILY 08/25/21 08/25/21 tamsulosin 0.4 mg PO HS 08/25/21 08/25/21 Allergies Allergy/AdvReac Type Severity Reaction Status Date / Time poison isabelle extract Allergy Mild RASH Verified 10/12/21 14:43 Review of Systems Review of Systems: All systems reviewed & are unremarkable except as noted in HPI and below Constitutional: Constitutional: Denies chills and Denies fever(s) Cardiovascular: Cardiovascular: Reports chest pain, Denies rapid heart rate and Reports radiating jaw, neck or arm pain Respiratory: Respiratory: Reports cough, Denies dyspnea and Reports wheezing Gastrointestinal: Gastrointestinal: Denies abdominal pain, Denies diarrhea, Denies nausea and Denies vomiting [facility] Past Medical History Medical History (Updated 10/12/21 @ 19:11 by Florinda Dunham MD) BPH (benign prostatic hyperplasia) CAD (coronary artery disease) Minimal blockages treated medically Chronic back pain Due to a pinched nerve COPD (chronic obstructive pulmonary disease) Depression Gout Hyperlipidemia Hypertension Surgical History Surgical History H/O cardiac catheterization Minimal blockages. History of kidney surgery Right kidney History of shoulder surgery On the left Family History Family History Mother Family history of malignant neoplasm of breast in first degree relative Father Family history of throat cancer Sibling Cancer of back Social History Social History (Updated 10/12/21 @ 11:45 by Nilesh Lawson MD) Social History: The patient is . He does have a significant other. Patient has smoked off and on for about 50 years up to 1.5 packs per day. He resume smoking 2 weeks ago. He drinks 15 alcoholic drinks per month. Denies drug use. The son is the durable power commercial litigation attorney for healthcare. The patient is listed as a full code. Smoking packs per day: 1.5 Smoking cigarettes per day: 30.0 Years smoked: 30 Smoking pack-years: 45.00 Smoking status: Former smoker Tobacco type: cigarettes Second hand tobacco smoke exposure: Yes Smoking end date: 11/18/04 Alcohol intake: current Drinks per week: 1 Substance use: never Substance use type: does not use Spiritual care concerns: No Exam Const: General: alert and ill appearing; No diaphoretic Nutritional Appearance: obese Orientation/consciousness: patient oriented x3 Other: moderate respiratory distress Eyes: Pupils: Equal, round and reactive pupils present EOM:
[2021-10-12 07:35] LABS: Troponin I < 0.012 ng/mL (0.000-0.034)
--- NOTE | 2021-10-12 10:14 | PM.IMHP ---
H&P: HPI History of Present Illness Date/Time: PATIENT WAS PLACED IN OBSERVATION STATUS 10/12/21 10:14 Chief Complaint: Flank chest pain after a fall Narrative: 66yo male with BPH, COPD, CAD and recently diagnosed with PNA currently on treatment here for left chest pain after a fall. Approximately 1 month ago, patient was diagnosed with pneumonia outside hospital was treated with antibiotics. He finished antibiotics about a week ago. He was also started on prednisone taper around that time and finished about 2 and half weeks of the steroids has been off steroids for about 3-4 days now. He has been smoking off and on. He quit for a while but started smoking 2 weeks ago. When he started smoking, he started to have a cough productive of greenish-yellow sputum. Two days prior to admission while using a leaf blower, patient tripped on a tree root landing on relief below are on the left lateral chest wall. It was sore. No head injury or loss of consciousness. He denies any central chest pressure. He denies palpitations, headaches, vision changes, odynophagia, dysphagia, nausea, vomiting, diarrhea, abdominal pain, dysuria, hematuria, anosmia or dysgeusia. He is up-to-date his COVID vaccine and had his booster about a month ago. He has also had his flu vaccine. He denies any numbness, tingling, weakness in his extremities with exception of right foot numbness felt related to chronic back problems. He has plans to have a lumbar L3-L4 surgery on 10/17/2021. Patient does not wear oxygen at home. He does not have sleep apnea that he is aware. He does follow with a pan operator at a different hospital although has difficulty remembering his name. Last evening, patient had increased coughing spell associated with worsening left flank pain. Because of this reason he presented to the emergency room for evaluation on the data processing clerk hours of admission. Emergency room patient was tachypneic but otherwise hemodynamically stable. He is 95% on room air. [place] white count was [address]. Urinalysis was negative. ABG 7.41/39/76 on 2 L. troponin was negative. BNP was 476. EKG showed ST elevation in diffuse leads probably early repolarization. Chest x-ray showed no displaced rib fractures but did show patchy bilateral airspace opacities. EKG and chest x-ray reviewed by myself. Patient was treated with narcotics, albuterol/Atrovent and IV antibiotics. He was admitted for further care. Review of Systems Review of Systems: All systems reviewed & are unremarkable except as noted in HPI and below [facility] Past Medical History Medical History (Updated 10/12/21 @ 19:11 by Florinda Dunham MD) BPH (benign prostatic hyperplasia) CAD (coronary artery disease) Minimal blockages treated medically Chronic back pain Due to a pinched nerve COPD (chronic obstructive pulmonary disease) Depression Gout Hyperlipidemia Hypertension Surgical History Surgical History H/O cardiac catheterization Minimal blockages. History of kidney surgery Right kidney History of shoulder surgery On the left Family History Family History Mother Family history of malignant neoplasm of breast in first degree relative Father Family history of throat cancer Sibling Cancer of back Social History Social History (Updated 10/12/21 @ 11:45 by Nilesh Lawson MD) Social History: The patient is . He does have a significant other. Patient has smoked off and on for about 50 years up to 1.5 packs per day. He resume smoking 2 weeks ago. He drinks 15 alcoholic drinks per month. Denies drug use. The son is the durable power attorney recruiter for healthcare. The patient is listed as a full code. Smoking packs per day: 1.5 Smoking cigarettes per day: 30.0 Years smoked: 30 Smoking pack-years: 45.00 Smoking status: Former smoker Tobacco typ
[2021-10-12] MEDS: ENOXAPARIN 40 MG/0.4 ML SYRINGE SUB-Q (12:57)
--- NOTE | 2021-10-12 14:30 | ADMGEN ---
This patient, Renato García, was admitted to [facility] Surg Room 301-01. Patient/family oriented to hospital policies and general routines including ID bracelet, bed and alarms, visiting hours, pain management, procedures, bathroom and other care routines, personal items, smoking policy, room service/diet, and visiting hours. Information on how to activate the Rapid Response Team has been discussed. Patient/Family are encouraged to report perceived risks to care and to ask questions if they do not understand what they are told or what they should do.
[2021-10-12 15:23] LABS: SARS-CoV-2 RNA PCR Negative
[2021-10-12] MEDS: METOPROLOL SUCCINATE EXT REL 25 MG TABCR PO (16:56)
[2021-10-12] MEDS: GABAPENTIN 300 MG CAPSULE PO (16:57)
[2021-10-12] MEDS: TAMSULOSIN HCL 0.4 MG CAPSULE PO (20:04)
[2021-10-12] MEDS: QUEtiapine FUMARATE 25 MG TABLET 50 MG PO (20:04)
[2021-10-12] MEDS: HYDROcodone/acetaminophen (*CRX) 5-325 MG TABLET 1 TAB PO ×2 (20:04→23:45)
[2021-10-13] VITALS (9 sets, daily range): BP systolic 118–157; BP diastolic 58–89; PULSE 65–86; RESP 18–26; TEMP 36.1–36.7; O2SAT 92–96
[2021-10-13] MEDS: HYDROcodone/acetaminophen (*CRX) 5-325 MG TABLET 1 TAB PO ×2 (05:12→09:48)
[2021-10-13 06:53] LABS: Basophils Absolute Auto 0.1 K/mm3 (0.0-0.1); Basophils Percent Auto 0.8 % (0.2-1.2); Eosinophils Absolute Auto 0.2 K/mm3 (0-0.3); Eosinophils Percent Auto 1.2 % (0-4.4); Hematocrit 41.6 % (42.0-52.0); Hemoglobin 13.3 g/dL (14.0-18.0); Immature Granulocyte Absolute 0.35 K/mm3 (0.00-0.031); Immature Granulocyte Percent A 2.1 % (0-0.5); Lymphocytes Percent Auto 15.2 % (18.3-44.2); Mean Corpuscular Volume 93.9 fl (80-100); Monocytes Absolute Auto 1.1 K/mm3 (0.1-0.6); Monocytes Percent Auto 6.7 % (2.6-8.5); Neutrophils Absolute Auto 12.2 K/mm3 (1.3-6.7); Platelet Count Result 267 k/mm3 (150-375); Red Blood Count 4.43 M/mm3 (4.6-6.20); Red Cell Distribution Width 14.7 % (11.5-14.5); White Blood Count 16.5 K/mm3 (4.5-10.0)
[2021-10-13 07:13] LABS: Alanine Aminotransferase 36 U/L (4-50); Albumin Level 4.2 g/dL (3.5-5.1); Alkaline Phosphatase 84 U/L (38-126); Anion Gap 8 mmol/L (8-16); Aspartate Amino Transferase 35 U/L (17-59); Bilirubin,Total 0.6 mg/dL (0.2-1.3); Blood Urea Nitrogen 26 mg/dL (9-20); Carbon Dioxide 24 mmol/L (22-30); Chloride 98 mmol/L (98-107); Estimated CRCL calculation 65 ml/min; Estimated Glomerular Filt Rate 60; Glucose 136 mg/dL (65-110); Potassium 4.1 mmol/L (3.4-5.0); Sodium 130 mmol/L (137-145)
[2021-10-13] MEDS: FLUTICASONE/UMECLIDIN/VILANTER 100-62.5-25 MCG ELLIPTA 1 PUFF INHALATION (07:25)
[2021-10-13] MEDS: allopurinoL 100 MG TABLET PO (09:48)
[2021-10-13] MEDS: FINASTERIDE 5 MG TABLET PO (09:48)
[2021-10-13] MEDS: METOPROLOL SUCCINATE EXT REL 25 MG TABCR PO (09:48)
[2021-10-13] MEDS: ENOXAPARIN 40 MG/0.4 ML SYRINGE SUB-Q (09:49)
[2021-10-13] MEDS: GABAPENTIN 300 MG CAPSULE PO ×3 (09:49→17:29)
[2021-10-13] MEDS: ROSUVASTATIN 10 MG TABLET PO (09:49)
[2021-10-13] MEDS: MORPHINE SULFATE (*CRX) 4 MG/ML INJ IV PUSH (11:18)
[2021-10-13] MEDS: LIDOCAINE 5% PATCH 2 PATCH TRANSDERM (12:07)
[2021-10-13] MEDS: DOXYCYCLINE IV 100 MG in SODIUM CHLORIDE 0.9% IV 100 ML IVPB ×2 (12:09→21:01)
--- NOTE | 2021-10-13 13:10 | PM.IMPN ---
Progress Note: A&P Assessment and Plan (1) Pneumonia: Code(s): J18.9 - Pneumonia, unspecified organism Status: Acute Assessment and Plan: Patient has chest x-ray concerning for possible pneumonia. Patient was recently diagnosed with pneumonia has just completed treatment about a week ago. As such, this chest x-ray findings could be just residual from the prior pneumonia but patient has been having increasing cough over the past 2 weeks productive green-yellow sputum. He has started smoking again which could explain the increasing cough. COVID is a possibility although felt less likely given his lack of symptoms and fact he has had the vaccine with the booster. He is on isolation at this time pending that test result. He does have poor dentition. He also has chronic lung disease so consider anaerobic infections as well as Pseudomonas in the differential for his pneumonia. As such will change antibiotics to Zosyn. Check sputum. Follow up on blood cultures. Wean oxygen as tolerated. 10/13/2021 Interval history: patient is 66-year-old male with history of persistent pneumonia came to emergency department after he had fell on the leaf blower on the left side ribs, patient continued to complain of cough and left-sided chest pain with cough along the ribs, patient denies any shortness of breath fever or chills, will continue present management with IV antibiotic, will apply Lidoderm patch on the left ribs to minimize the pain will continue to monitor repeat chest x-ray further recommendation to follow. patient had a artery ultrasound of lower extremity issues patient has a moderate vascular disease and history of coronary artery disease patient is not on any anti-platelet will consult lease broker patient will benefit from angiogram lower extremities (2) Person under investigation for COVID-19: Code(s): Z20.822 - Contact with and (suspected) exposure to COVID-19 Status: Acute Assessment and Plan: Patient has been tested for COVID. Currently under isolation. Follow-up on results. (3) Chest wall trauma: Code(s): S29.9XXA - Unspecified injury of thorax, initial encounter Status: Acute Assessment and Plan: Patient has focal chest wall tenderness. Related to the fall. He does have diffuse ST elevation and would be concerned about mild cardiac trauma although his troponin is normal. Will check echocardiogram. Otherwise symptomatic care at this point. No overt fractures noted by x-ray. (4) Leukocytosis: Code(s): D72.829 - Elevated white blood cell count, unspecified Status: Acute Assessment [place] Plan: [place] [address]. This could be stress response and/or pneumonia and/or related to prednisone. He states he has been off prednisone for 3-4 days however his BUN is still elevated at 27 to suggest either dehydration or related to steroids. It should be mentioned the patient is alert and oriented but does have difficulty providing detailed history. Antibiotics have been started. Continue to monitor white count. (5) COPD (chronic obstructive pulmonary disease): Code(s): J44.9 - Chronic obstructive pulmonary disease, unspecified Status: Chronic Assessment and Plan: Patient has chronic COPD. He uses is nebulizer treatments 5 times a day. He believes he also takes Symbicort at home as well but has Breztri (budesonide/glycopyrrolate/formoterol fumarate) listed as prn. Suspect he should be taking the Breztri scheduled. Will change this. Continue nebulizer treatments. (6) CAD (coronary artery disease): Code(s): I25.10 - Atherosclerotic heart disease of [place] coronary artery without angina pectoris Status: Inactive Assessment and Plan: Patient has a history of coronary disease noted by minimal disease by heart catheterization. Will resume Crestor. Not noted to be on aspirin which will need to clarify. He does have poor puls
--- NOTE | 2021-10-13 20:02 | ECG_ITS ---
Measurements Intervals [place] Rate: 85 P: 59 MD: 158 QRS: 35 QRSD: 97 T: 62 QT: 343 QTc: 408 Interpretive Statements SINUS RHYTHM INCOMPLETE RIGHT BUNDLE BRANCH BLOCK BASELINE ARTIFACT- I, II, III, AVR, AVL, AVF, V1 BORDERLINE ECG Electronically Signed On 10-14-2021 7:07:55 TELESALES TEAM LEADER by Jonnathan Gamez D.O.
--- NOTE | 2021-10-13 20:10 | PM.EVENT ---
Event Note Event Note Event Note: S: Rapid response called overhead. Patient was complaining of chest pain and some shortness of breath Which apparently woke him from sleep. Chart, labs, and imaging reviewed. He was admitted through the emergency department yesterday after presenting with chest pain after a fall in which he hit the left side of his thorax and a leaf blower. Chest and rib x-rays showed no acute fractures but did note pneumonia and he was admitted in this setting. Tonight he continues to have pain on the left side of his chest which is reproducible. He does seem a bit short of breath to me however denies feeling significantly short of breath. Chest pain is achy but occasionally sharp shooting in nature. It is worse with palpation and movement and somewhat with deep inspiration. No fever, chills, sweats, nausea, vomiting, syncope, near syncope, palpitations, or racing heart. He has no history of sleep apnea and denies concerns for such. O: Well-developed male sitting up in bed. He is speaking in full sentences and is very chatty though he seems mildly tachypneic. Tight and diminished lung sounds heard throughout, left greater than right, with diffuse expiratory wheezing and prolonged expiratory phase. there also faint, scattered crackles at the bases. He has reproducible tenderness to palpation over the left lateral chest to mid axillary line. Pulses around 80 with a regular rate and rhythm. Abdomen is protuberant with positive bowel sounds. No tenderness to palpation of the abdomen. No cyanosis, clubbing, or edema. Radial and pedal pulses intact. Negative Jarek sign bilaterally. A: Left lateral chest wall pain felt to be musculoskeletal in etiology from recent fall as detailed above. Shortness of breath is likely due to COPD and suspected underlying pneumonia. Pulmonary embolism is felt to be less likely though may consider chest CTA if no improvement. P: Tylenol and lidocaine patch for chest wall pain. He is receiving a nebulizer at this time and I will give him a 1 time dose of Solu-Medrol as well as 20 mg of Lasix given wheezing and crackles respectively. Chest x-ray does show mild pulmonary vascular congestion. EKG shows no acute ST segment changes. Troponin has been ordered and will be trended. <Clara Farah PA-C - Last Filed: 10/14/21 00:59>
[2021-10-13] MEDS: ALBUTEROL SULFATE NEB 2.5 MG/0.5 ML INH (20:41)
[2021-10-13] MEDS: IPRATROPIUM BR 0.02% INH SOLN 0.5 MG/2.5 ML VIAL (20:41)
[2021-10-13 20:59] LABS: Troponin I < 0.012 ng/mL (0.000-0.034)
[2021-10-13] MEDS: FUROSEMIDE INJ 40 MG/4 ML VIAL IV PUSH (21:01)
[2021-10-13] MEDS: methylPREDNISolone SOD SUCC 125 MG VIAL IV PUSH (21:01)
[2021-10-13] MEDS: ACETAMINOPHEN 325 MG TABLET 650 MG PO (21:09)
[2021-10-13] MEDS: TAMSULOSIN HCL 0.4 MG CAPSULE PO (21:09)
[2021-10-13] MEDS: QUEtiapine FUMARATE 25 MG TABLET 50 MG PO (21:10)
[2021-10-13 22:47] LABS: NT Pro B Type Natriuretic Pept 163 pg/mL (5-100)
[2021-10-14] VITALS (12 sets, daily range): BP systolic 142–149; BP diastolic 72–95; PULSE 62–89; RESP 18–20; TEMP 36.3–36.7; O2SAT 93–95
--- NOTE | 2021-10-14 | ECHO_ITS ---
Patient Info Name: Renato García Age: 66 years : 1955 Gender: Male Ht: 70 in Wt: 235 lbs BSA: 2.33 m2 HR: 90 bpm BP: 136 / 76 mmHg Technical Quality: Other, Poor Exam Date: 10/14/2021 10:30 AM Exam Location: [facility] Patient Status: Outpatient Admit Date: 10/12/2021 Staff Ordering Physician: Nilesh Lawson MD Package Checker: Wilma Linn [facility] Attending Provider: Biju Arguelles MD Exam Type: CA echo doppler color flow Study Info Indications - chest wall trauma Limited two-dimensional transthoracic echocardiogram is performed. Reason for Poor Study: poor echocardiographic windows Summary 1. Technically difficult study with limited views. 2. Only subcostal window. 3. Left ventricle is not well visualized. Through limited images LV function appears normal. 4. Right ventricle is not well visualized. Through limited view RV function appears normal. 5. Normal inferior vena cava with >50% collapse upon inspiration consistent with normal right atrial pressure. 6. Pericardium is normal in appearance with no evidence for significant pericardial effusion. Left Ventricle Left ventricle is not well visualized. Through limited images LV function appears normal. Right Ventricle Right ventricle is not well visualized. Through limited view RV function appears normal. Left Atria Left atrium was not well visualized. Right Atria Right atrium was not well visualized. Aortic Valve Aortic valve is not well visualized. Pulmonic Valve Pulmonary valve is not well visualized. Mitral Valve Mitral valve is not well visualized. Tricuspid Valve The tricuspid valve is not well visualized. Pericardium/Pleural Pericardium is normal in appearance with no evidence for significant pericardial effusion. Inferior Vena Cava Normal inferior vena cava with >50% collapse upon inspiration consistent with normal right atrial pressure. Pulmonic Valve Name Value Normal PV Doppler PV Peak Gradient 3 mmHg Mitral Valve Name Value Normal MV Doppler MV Decel [place] 270 cm/s2 MV PHT 55 ms MV Area (PHT) 4.0 cm2 4.0-5.0 MV Diastolic Function MV E Peak Velocity 51 cm/s MV A Peak Velocity 86 cm/s MV E/A 0.6 MV Decel Time 188 ms Report Signatures
[2021-10-14 00:06] LABS: Troponin I < 0.012 ng/mL (0.000-0.034)
[2021-10-14 02:00] LABS: Troponin I < 0.012 ng/mL (0.000-0.034)
[2021-10-14 06:16] LABS: Hematocrit 40.4 % (42.0-52.0); Hemoglobin 13.8 g/dL (14.0-18.0); Mean Corpuscular HGB Conc 34.2 g/dl (32-36); Mean Corpuscular Hemoglobin 30.7 pg (26-34); Mean Corpuscular Volume 89.8 fl (80-100); Mean Platelet Volume 9.5 fl (7.4-10.4); Platelet Count Result 275 k/mm3 (150-375); Red Cell Distribution Width 13.9 % (11.5-14.5); White Blood Count 18.7 K/mm3 (4.5-10.0)
[2021-10-14 06:26] LABS: Anion Gap 7 mmol/L (8-16); Blood Urea Nitrogen 29 mg/dL (9-20); Calcium 9.1 mg/dL (8.4-10.2); Carbon Dioxide 25 mmol/L (22-30); Chloride 97 mmol/L (98-107); Estimated CRCL calculation 71 ml/min; Estimated Glomerular Filt Rate > 60; Glucose 167 mg/dL (65-110); Potassium 4.6 mmol/L (3.4-5.0); Sodium 129 mmol/L (137-145)
--- NOTE | 2021-10-14 06:50 | PC.NURSE ---
Patient was rounded on at 1999 with complaints of chest pain upon inspiration. Patient was holding left side of chest. Palpitations were found upon auscultation. Vitals were taken (see vitals in chart). Patient was put on telemetry and showed normal sinus rhythm. Clara was called at 2004. Rapid response was called at 2009. Team arrived at 2011. Nebulizer, EKG, chest x-ray, and labs were ordered stat. Rapid ended at 2021. Clara put in new medication orders to be given. Patient is stable with call light in reach.
[2021-10-14] MEDS: ENOXAPARIN 40 MG/0.4 ML SYRINGE SUB-Q (08:41)
[2021-10-14] MEDS: METOPROLOL SUCCINATE EXT REL 25 MG TABCR PO (08:41)
[2021-10-14] MEDS: LIDOCAINE 5% PATCH 2 PATCH TRANSDERM (08:41)
[2021-10-14] MEDS: DOXYCYCLINE IV 100 MG in SODIUM CHLORIDE 0.9% IV 100 ML IVPB ×2 (08:41→20:06)
[2021-10-14] MEDS: GABAPENTIN 300 MG CAPSULE PO ×3 (08:41→17:23)
[2021-10-14] MEDS: FINASTERIDE 5 MG TABLET PO (08:42)
[2021-10-14] MEDS: allopurinoL 100 MG TABLET PO (08:42)
[2021-10-14] MEDS: ROSUVASTATIN 10 MG TABLET PO (08:42)
[2021-10-14] MEDS: MORPHINE SULFATE (*CRX) 4 MG/ML INJ IV PUSH (10:18)
[2021-10-14] MEDS: FUROSEMIDE INJ 40 MG/4 ML VIAL IV PUSH (10:19)
[2021-10-14] MEDS: FLUTICASONE/UMECLIDIN/VILANTER 100-62.5-25 MCG ELLIPTA 1 PUFF INHALATION (10:31)
[2021-10-14] MEDS: ALBUTEROL SULFATE (*SP) AEROSOL 1 PUFF 2 PUFF INHALATION (10:31)
--- NOTE | 2021-10-14 13:24 | PM.IMPN ---
Progress Note: A&P Assessment and Plan (1) Pneumonia: Code(s): J18.9 - Pneumonia, unspecified organism Status: Acute Assessment and Plan: Patient has chest x-ray concerning for possible pneumonia. Patient was recently diagnosed with pneumonia has just completed treatment about a week ago. As such, this chest x-ray findings could be just residual from the prior pneumonia but patient has been having increasing cough over the past 2 weeks productive green-yellow sputum. He has started smoking again which could explain the increasing cough. COVID is a possibility although felt less likely given his lack of symptoms and fact he has had the vaccine with the booster. He is on isolation at this time pending that test result. He does have poor dentition. He also has chronic lung disease so consider anaerobic infections as well as Pseudomonas in the differential for his pneumonia. As such will change antibiotics to Zosyn. Check sputum. Follow up on blood cultures. Wean oxygen as tolerated. 10/13/2021 Interval history: patient is 66-year-old male with history of persistent pneumonia came to emergency department after he had fell on the leaf blower on the left side ribs, patient continued to complain of cough and left-sided chest pain with cough along the ribs, patient denies any shortness of breath fever or chills, will continue present management with IV antibiotic, will apply Lidoderm patch on the left ribs to minimize the pain will continue to monitor repeat chest x-ray further recommendation to follow. patient had a artery ultrasound of lower extremity issues patient has a moderate vascular disease and history of coronary artery disease patient is not on any anti-platelet will consult collection card clerk patient will benefit from angiogram lower extremities. 10/14/2021 Interval history: event noted from last night a rapid response patient with complaint of left-sided chest most likely muscular, this morning patient states the pain is better but still feel congested will continue IV Lasix 40 mg q.day, patient also suspected having pneumonia and being treated with the Zosyn will continue to monitor. will encourage the patient participate in physical therapy. (2) Person under investigation for COVID-19: Code(s): Z20.822 - Contact with and (suspected) exposure to COVID-19 Status: Acute Assessment and Plan: Patient has been tested for COVID. Currently under isolation. Follow-up on results. (3) Chest wall trauma: Code(s): S29.9XXA - Unspecified injury of thorax, initial encounter Status: Acute Assessment and Plan: Patient has focal chest wall tenderness. Related to the fall. He does have diffuse ST elevation and would be concerned about mild cardiac trauma although his troponin is normal. Will check echocardiogram. Otherwise symptomatic care at this point. No overt fractures noted by x-ray. (4) Leukocytosis: Code(s): D72.829 - Elevated white blood cell count, unspecified Status: Acute Assessment [place]: [place] [address]. This could be stress response and/or pneumonia and/or related to prednisone. He states he has been off prednisone for 3-4 days however his BUN is still elevated at 27 to suggest either dehydration or related to steroids. It should be mentioned the patient is alert and oriented but does have difficulty providing detailed history. Antibiotics have been started. Continue to monitor white count. (5) COPD (chronic obstructive pulmonary disease): Code(s): J44.9 - Chronic obstructive pulmonary disease, unspecified Status: Chronic Assessment and Plan: Patient has chronic COPD. He uses is nebulizer treatments 5 times a day. He believes he also takes Symbicort at home as well but has Breztri (budesonide/glycopyrrolate/formoterol fumarate) listed as prn. Suspect he should be taking the Breztri scheduled. Will change this. Contin
--- NOTE | 2021-10-14 15:52 | PM.CNCAR ---
Assessment and Plan Additional Plan Non cardiac chest pain likely related to trauma and drib fracture, plan pain control by medicine team, no further work up is needed History of Present Illness History of Present Illness Consult date/time: 10/14/21 15:52 Consult reason: chest pain Reason For Visit: pna Narrative: Patient presented with s/p fall with acute left side chest pain, sharp, non radiating worse with breathing, sever, improved with narcotics. He has no Hx of heart disease. Review of Systems Review of Systems: All systems reviewed & are unremarkable except as noted in HPI and below PMFSH Past Medical History Medical History (Updated 10/12/21 @ 19:11 by Florinda Dunham MD) BPH (benign prostatic hyperplasia) CAD (coronary artery disease) Minimal blockages treated medically Chronic back pain Due to a pinched nerve COPD (chronic obstructive pulmonary disease) Depression Gout Hyperlipidemia Hypertension Surgical History Surgical History H/O cardiac catheterization Minimal blockages. History of kidney surgery Right kidney History of shoulder surgery On the left Family History Family History Mother Family history of malignant neoplasm of breast in first degree relative Father Family history of throat cancer Sibling Cancer of back Social History Social History (Updated 10/12/21 @ 11:45 by Nilesh Lawson MD) Social History: The patient is . He does have a significant other. Patient has smoked off and on for about 50 years up to 1.5 packs per day. He resume smoking 2 weeks ago. He drinks 15 alcoholic drinks per month. Denies drug use. The son is the durable power health care attorney for healthcare. The patient is listed as a full code. Smoking packs per day: 1.5 Smoking cigarettes per day: 30.0 Years smoked: 30 Smoking pack-years: 45.00 Smoking status: Former smoker Tobacco type: cigarettes Second hand tobacco smoke exposure: Yes Smoking end date: 11/18/04 Alcohol intake: current Drinks per week: 1 Substance use: never Substance use type: does not use Spiritual care concerns: No Meds Home Medications and Allergies Home Medications Medication Instructions Recorded Confirmed Type Breztri Aerosphere 1 inh INHALATION Q6-8H PRN 08/25/21 10/12/21 History allopurinol 100 mg PO DAILY 08/25/21 10/12/21 History amlodipine 2.5 mg PO DAILY 08/25/21 10/12/21 History finasteride 5 mg PO DAILY 08/25/21 10/12/21 History gabapentin 300 mg PO TID 08/25/21 10/12/21 History lisinopril 10 mg PO DAILY 08/25/21 10/12/21 History metoprolol succinate 25 mg PO DAILY 08/25/21 10/12/21 History prednisone 20 mg PO BID 08/25/21 10/12/21 History quetiapine 50 mg PO HS 08/25/21 10/12/21 History rosuvastatin 10 mg PO DAILY 08/25/21 10/12/21 History tamsulosin 0.4 mg PO HS 08/25/21 10/12/21 History hydrocodone-acetaminophen 1 tablet PO Q4H PRN #10 tablet 08/27/21 10/12/21 Rx Allergies Allergy/AdvReac Type Severity Reaction Status Date / Time poison isabelle extract Allergy Mild RASH Verified 10/12/21 14:43 Vital Signs Vital Signs - 24 hr 10/13/21 20:15 10/13/21 20:20 10/13/21 21:26 Temperature Pulse Rate 85 85 86 Respiratory Rate 26 H 22 H 20 Blood Pressure 149/89 H Pulse Oximetry 96 10/13/21 22:00 10/13/21 22:17 10/14/21 00:00 Temperature 36.7 C Pulse Rate 83 62 Respiratory Rate 26 H Blood Pressure 157/85 H Pulse Oximetry 94 92 10/14/21 04:00 10/14/21 06:00 10/14/21 08:00 Temperature 36.7 C Pulse Rate 67 79 77 Respiratory Rate 20 Blood Pressure 148/81 H Pulse Oximetry 95 10/14/21 08:41 10/14/21 10:34 10/14/21 12:00 Temperature Pulse Rate 80 89 Respiratory Rate Blood Pressure Pulse Oximetry 93 10/14/21 15:08 Temperature 36.7 C Pulse Rate 88 Respiratory Rate 18 Blood Pressure 142/95 H Pul
[2021-10-14] MEDS: QUEtiapine FUMARATE 25 MG TABLET 50 MG PO (20:04)
[2021-10-14] MEDS: TAMSULOSIN HCL 0.4 MG CAPSULE PO (20:05)
[2021-10-15] VITALS (11 sets, daily range): BP systolic 138–158; BP diastolic 70–84; PULSE 62–88; RESP 18–20; TEMP 35.8–36.4; O2SAT 93–98
[2021-10-15] MEDS: HYDROcodone/acetaminophen (*CRX) 5-325 MG TABLET 1 TAB PO ×4 (01:00→22:19)
[2021-10-15 06:48] LABS: Hematocrit 42.5 % (42.0-52.0); Mean Corpuscular HGB Conc 32.9 g/dl (32-36); Mean Platelet Volume 10.3 fl (7.4-10.4); Platelet Count Result 268 k/mm3 (150-375); Red Blood Count 4.52 M/mm3 (4.6-6.20); Red Cell Distribution Width 14.6 % (11.5-14.5)
[2021-10-15 07:01] LABS: Anion Gap 8 mmol/L (8-16); Blood Urea Nitrogen 35 mg/dL (9-20); Carbon Dioxide 25 mmol/L (22-30); Chloride 100 mmol/L (98-107); Estimated CRCL calculation 78 ml/min; Estimated Glomerular Filt Rate > 60; Glucose 172 mg/dL (65-110); Potassium 3.8 mmol/L (3.4-5.0); Sodium 133 mmol/L (137-145)
[2021-10-15] MEDS: FLUTICASONE/UMECLIDIN/VILANTER 100-62.5-25 MCG ELLIPTA 1 PUFF INHALATION (08:13)
[2021-10-15] MEDS: LIDOCAINE 5% PATCH 2 PATCH TRANSDERM (08:35)
[2021-10-15] MEDS: GABAPENTIN 300 MG CAPSULE PO ×3 (08:35→17:17)
[2021-10-15] MEDS: ENOXAPARIN 40 MG/0.4 ML SYRINGE SUB-Q (08:35)
[2021-10-15] MEDS: DOXYCYCLINE IV 100 MG in SODIUM CHLORIDE 0.9% IV 100 ML IVPB (08:36)
[2021-10-15] MEDS: FINASTERIDE 5 MG TABLET PO (08:36)
[2021-10-15] MEDS: METOPROLOL SUCCINATE EXT REL 25 MG TABCR PO (08:36)
[2021-10-15] MEDS: ROSUVASTATIN 10 MG TABLET PO (08:36)
[2021-10-15] MEDS: FUROSEMIDE INJ 40 MG/4 ML VIAL IV PUSH (08:36)
[2021-10-15] MEDS: allopurinoL 100 MG TABLET PO (08:36)
--- NOTE | 2021-10-15 11:48 | PM.IMPN ---
Progress Note: A&P Assessment and Plan (1) Pneumonia: Code(s): J18.9 - Pneumonia, unspecified organism Status: Acute Assessment and Plan: Patient has chest x-ray concerning for possible pneumonia. Patient was recently diagnosed with pneumonia has just completed treatment about a week ago. As such, this chest x-ray findings could be just residual from the prior pneumonia but patient has been having increasing cough over the past 2 weeks productive green-yellow sputum. He has started smoking again which could explain the increasing cough. COVID is a possibility although felt less likely given his lack of symptoms and fact he has had the vaccine with the booster. He is on isolation at this time pending that test result. He does have poor dentition. He also has chronic lung disease so consider anaerobic infections as well as Pseudomonas in the differential for his pneumonia. As such will change antibiotics to Zosyn. Check sputum. Follow up on blood cultures. Wean oxygen as tolerated. 10/13/2021 Interval history: patient is 66-year-old male with history of persistent pneumonia came to emergency department after he had fell on the leaf blower on the left side ribs, patient continued to complain of cough and left-sided chest pain with cough along the ribs, patient denies any shortness of breath fever or chills, will continue present management with IV antibiotic, will apply Lidoderm patch on the left ribs to minimize the pain will continue to monitor repeat chest x-ray further recommendation to follow. patient had a artery ultrasound of lower extremity issues patient has a moderate vascular disease and history of coronary artery disease patient is not on any anti-platelet will consult herbicide service sales representative patient will benefit from angiogram lower extremities. 10/14/2021 Interval history: event noted from last night a rapid response patient with complaint of left-sided chest most likely muscular, this morning patient states the pain is better but still feel congested will continue IV Lasix 40 mg q.day, patient also suspected having pneumonia and being treated with the Zosyn will continue to monitor. will encourage the patient participate in physical therapy. 10/15/2021 Interval history: patient remains clinically stable states the pain in left chest is better not as congested, patient is being treated for pneumonia is Zosyn and doxycycline, patient white counts are trending with still elevated, blood culture no growth so far, concerning for vascular congestion patient is being treated with Lasix, and status post fall and trauma to left chest pain is getting better on Lidoderm patch, (2) Person under investigation for COVID-19: Code(s): Z20.822 - Contact with and (suspected) exposure to COVID-19 Status: Acute Assessment and Plan: Patient has been tested for COVID. Currently under isolation. Follow-up on results. (3) Chest wall trauma: Code(s): S29.9XXA - Unspecified injury of thorax, initial encounter Status: Acute Assessment and Plan: Patient has focal chest wall tenderness. Related to the fall. He does have diffuse ST elevation and would be concerned about mild cardiac trauma although his troponin is normal. Will check echocardiogram. Otherwise symptomatic care at this point. No overt fractures noted by x-ray. (4) Leukocytosis: Code(s): D72.829 - Elevated white blood cell count, unspecified Status: Acute Assessment [place]: [place] [address]. This could be stress response and/or pneumonia and/or related to prednisone. He states he has been off prednisone for 3-4 days however his BUN is still elevated at 27 to suggest either dehydration or related to steroids. It should be mentioned the patient is alert and oriented but does have difficulty providing detailed history. Antibiotics have been started. Continue to monitor white count. (5) COPD (chronic obstructive p
[2021-10-15] MEDS: ALBUTEROL SULFATE (*SP) AEROSOL 1 PUFF 2 PUFF INHALATION (17:41)
[2021-10-15] MEDS: TAMSULOSIN HCL 0.4 MG CAPSULE PO (22:14)
[2021-10-15] MEDS: AMOXICILLIN/CLAVULANATE K 875-125 MG TAB 1 TABLET PO (22:14)
[2021-10-15] MEDS: DOXYCYCLINE HYCLATE 100 MG TABLET PO (22:14)
[2021-10-15] MEDS: QUEtiapine FUMARATE 25 MG TABLET 50 MG PO (22:14)
[2021-10-16] VITALS: PULSE 62
[2021-10-16 00:34] VITALS: O2SAT 94
[2021-10-16 04:00] VITALS: PULSE 69
[2021-10-16 06:00] VITALS: BP 138/82; PULSE 100; RESP 20; TEMP 36.5; O2SAT 95
[2021-10-16 08:10] VITALS: O2SAT 94
[2021-10-16] MEDS: FLUTICASONE/UMECLIDIN/VILANTER 100-62.5-25 MCG ELLIPTA 1 PUFF INHALATION (08:10)
[2021-10-16] MEDS: HYDROcodone/acetaminophen (*CRX) 5-325 MG TABLET 1 TAB PO (08:40)
[2021-10-16] MEDS: ENOXAPARIN 40 MG/0.4 ML SYRINGE SUB-Q (08:41)
[2021-10-16] MEDS: ROSUVASTATIN 10 MG TABLET PO (08:41)
[2021-10-16] MEDS: GABAPENTIN 300 MG CAPSULE PO (08:41)
[2021-10-16 08:42] VITALS: PULSE 86
[2021-10-16] MEDS: AMOXICILLIN/CLAVULANATE K 875-125 MG TAB 1 TABLET PO (08:42)
[2021-10-16] MEDS: METOPROLOL SUCCINATE EXT REL 25 MG TABCR PO (08:42)
[2021-10-16] MEDS: DOXYCYCLINE HYCLATE 100 MG TABLET PO (08:43)
[2021-10-16] MEDS: FINASTERIDE 5 MG TABLET PO (08:43)
[2021-10-16] MEDS: LIDOCAINE 5% PATCH 2 PATCH TRANSDERM (08:43)
[2021-10-16] MEDS: allopurinoL 100 MG TABLET PO (08:43)
[2021-10-16 10:09] LABS: Hematocrit 47.5 % (42.0-52.0); Hemoglobin 15.4 g/dL (14.0-18.0); Mean Corpuscular HGB Conc 32.4 g/dl (32-36); Mean Corpuscular Hemoglobin 30.7 pg (26-34); Mean Corpuscular Volume 94.8 fl (80-100); Platelet Count Result 295 k/mm3 (150-375); Red Blood Count 5.01 M/mm3 (4.6-6.20); Red Cell Distribution Width 14.6 % (11.5-14.5); White Blood Count 14.4 K/mm3 (4.5-10.0)
[2021-10-16 10:25] LABS: Anion Gap 11 mmol/L (8-16); Blood Urea Nitrogen 31 mg/dL (9-20); Calcium 9.7 mg/dL (8.4-10.2); Carbon Dioxide 27 mmol/L (22-30); Chloride 101 mmol/L (98-107); Estimated CRCL calculation 78 ml/min; Estimated Glomerular Filt Rate > 60; Glucose 131 mg/dL (65-110); Potassium 3.9 mmol/L (3.4-5.0); Sodium 139 mmol/L (137-145)
--- NOTE | 2021-10-16 10:32 | PM.DS ---
DS: Admitting Diagnosis Discharge Date 10/16/2021 Admitting Diagnosis Chief Complaint: Flank chest pain after a fall DS: Discharge Diagnosis Discharge Diagnosis (1) Pneumonia: Code(s): J18.9 - Pneumonia, unspecified organism Status: Acute Assessment and Plan: Patient has chest x-ray concerning for possible pneumonia. Patient was recently diagnosed with pneumonia has just completed treatment about a week ago. As such, this chest x-ray findings could be just residual from the prior pneumonia but patient has been having increasing cough over the past 2 weeks productive green-yellow sputum. He has started smoking again which could explain the increasing cough. COVID is a possibility although felt less likely given his lack of symptoms and fact he has had the vaccine with the booster. He is on isolation at this time pending that test result. He does have poor dentition. He also has chronic lung disease so consider anaerobic infections as well as Pseudomonas in the differential for his pneumonia. As such will change antibiotics to Zosyn. Check sputum. Follow up on blood cultures. Wean oxygen as tolerated. 10/13/2021 Interval history: patient is 66-year-old male with history of persistent pneumonia came to emergency department after he had fell on the leaf blower on the left side ribs, patient continued to complain of cough and left-sided chest pain with cough along the ribs, patient denies any shortness of breath fever or chills, will continue present management with IV antibiotic, will apply Lidoderm patch on the left ribs to minimize the pain will continue to monitor repeat chest x-ray further recommendation to follow. patient had a artery ultrasound of lower extremity issues patient has a moderate vascular disease and history of coronary artery disease patient is not on any anti-platelet will consult shank rander patient will benefit from angiogram lower extremities. 10/14/2021 Interval history: event noted from last night a rapid response patient with complaint of left-sided chest most likely muscular, this morning patient states the pain is better but still feel congested will continue IV Lasix 40 mg q.day, patient also suspected having pneumonia and being treated with the Zosyn will continue to monitor. will encourage the patient participate in physical therapy. 10/15/2021 Interval history: patient remains clinically stable states the pain in left chest is better not as congested, patient is being treated for pneumonia is Zosyn and doxycycline, patient white counts are trending with still elevated, blood culture no growth so far, concerning for vascular congestion patient is being treated with Lasix, and status post fall and trauma to left chest pain is getting better on Lidoderm patch, (2) Person under investigation for COVID-19: Code(s): Z20.822 - Contact with and (suspected) exposure to COVID-19 Status: Acute Assessment and Plan: Patient has been tested for COVID. Currently under isolation. Follow-up on results. (3) Chest wall trauma: Code(s): S29.9XXA - Unspecified injury of thorax, initial encounter Status: Acute Assessment and Plan: Patient has focal chest wall tenderness. Related to the fall. He does have diffuse ST elevation and would be concerned about mild cardiac trauma although his troponin is normal. Will check echocardiogram. Otherwise symptomatic care at this point. No overt fractures noted by x-ray. (4) Leukocytosis: Code(s): D72.829 - Elevated white blood cell count, unspecified Status: Acute Assessment [place]: [place] [address]. This could be stress response and/or pneumonia and/or related to prednisone. He states he has been off prednisone for 3-4 days however his BUN is still elevated at 27 to suggest either dehydration or related to steroids. It should be mentioned the patient is alert and oriented but does have difficulty p
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
== END 2021-10-16 12:25 | disposition home or self-care (01) | DRG 194 ==
LOC: ANHED 07:48 → ANH3MEDSUR 08:06
PROVIDERS: Physician Assistant; Admitting Provider Internal Medicine; Emergency Provider General Practice; PCP Internal Medicine; Visit Provider Family Medicine
DX: J18.9 Pneumonia, unspecified organism (principal); J44.0 Chronic obstructive pulmonary disease with (acute) lower respiratory infection; Z20.828 Contact with and (suspected) exposure to other viral communicable diseases; D72.829 Elevated white blood cell count, unspecified; I25.10 Atherosclerotic heart disease of native coronary artery without angina pectoris; N40.0 Benign prostatic hyperplasia without lower urinary tract symptoms; W18.39XA Other fall on same level, initial encounter; I10 Essential (primary) hypertension; F32.A Depression, unspecified; E66.9 Obesity, unspecified; S29.9XXA Unspecified injury of thorax, initial encounter; E78.5 Hyperlipidemia, unspecified; Z68.33 Body mass index [BMI] 33.0-33.9, adult; M10.9 Gout, unspecified; F17.210 Nicotine dependence, cigarettes, uncomplicated; S29.8XXA Other specified injuries of thorax, initial encounter
CPT/HCPCS: 36415; 36600; 51701; 71045; 71101; 80048; 80053; 81003; 82375; 82805; 83050; 83880; 84484; 85025; 85027; 85610; 85730; 87040; 93005; 93306; 93923; 94640; 96365; 96366; 96367; 96372; 96375; 96376; 97162; 97165; 99285; A9270; C9803; G0378; J0456; J0696; J1650; J1940; J2270; J2405; J2543; J2930; U0003; U0005

== ENCOUNTER 2021-10-25 20:17 | Inpatient (IN) | payer MEDICARE, MEDICAID, SELFPAY ==
--- NOTE | ~2021-10-25 | CT_ITS ---
EXAMINATION: CTA chest PE protocol EXAM DATE: 10/25/2021 23:34 INDICATION: Left-sided chest pain and shortness of breath. Elevated d-dimer. TECHNIQUE: Spiral CTA of the chest (pulmonary arteries) was performed with 100 cc Omnipaque 350 intr avenous contrast injection. Images were acquired during the pulmonary arterial phase. Coronal maxi mum intensity projection 3D-reconstructions were created by the technologist on dedicated workstation . Axial, coronal and sagittal reformatted images were reviewed. The dose-length product (DLP) for t his examination was 885.49 mGy-cm. The exposure was tailored according to patient size (auto mA exp osure control), and iterative reconstruction (ASIR) was used as additional dose reduction technique. Comparison is made to prior examination from 07/06/2016. FINDINGS: There is a left 6th rib fracture anterolaterally without displacement, appears to be acute. Is there point tenderness associated with patient's chest pain? There is suboptimal pulmonary arterial enhancement. Some limitations from respiratory motion. No intr aluminal filling defects identified. Certainly no central pulmonary emboli. No thoracic aortic disse ction. Mild emphysema and pulmonary fibrosis. There are no pleural or pericardial effusions. Trac heobronchial tree is patent. There is no mediastinal, hilar or axillary lymphadenopathy. There is no pneumothorax. Heart normal in size. There is mild coronary arterial calcification, arterial s clerosis. There is hepatic steatosis. There is thoracic spondylosis without osteoblastic or osteoly tic lesions identified. IMPRESSION: 1. Limited segmental evaluation, but no pulmonary emboli are suspected. 2. Acute left 6th rib fracture anterolaterally. 3. Mild emphysema and fibrosis. Reviewed, dictated and finalized at location A. TOPPER
--- NOTE | ~2021-10-25 | XR_ITS ---
EXAMINATION: XR chest 2V EXAM DATE: 10/25/2021 21:04 INDICATION: Left-sided chest pain, shortness of breath, sweating. Coronary artery disease, COPD and h ypertension. TECHNIQUE: Frontal and lateral projections of the chest obtained and reviewed. Comparison is made to prior examination from 10/13/2021. FINDINGS: The lungs are clear. There are no pleural effusions. The cardiomediastinal silhouette is within normal limits. There is no pneumothorax suspected. The bones and soft tissues are unremarkab le. IMPRESSION: No acute cardiopulmonary findings. Reviewed, dictated and finalized at location A. TRONIC PREPRESS OPERATOR
[2021-10-25 20:20] VITALS: BP 151/61; PULSE 98; RESP 20; TEMP 36.6; O2SAT 94
--- NOTE | 2021-10-25 20:28 | ECG_ITS ---
Measurements Intervals Leslie Rate: 95 P: 36 IA: 158 QRS: 36 QRSD: 95 T: 67 QT: 335 QTc: 422 Interpretive Statements SINUS RHYTHM BASELINE ARTIFACT- I, III, AVR, AVL, AVF, V1-V3 NORMAL ECG Electronically Signed On 10-26-2021 6:48:18 ANIMAL RESCUER by Jonnathan Gamez D.O.
--- NOTE | 2021-10-25 21:20 | ED.GENADULT ---
HPI - General Adult General Chief complaint: Unspecified Stated complaint: something popped in my chest Time Seen by Provider: 10/25/21 20:57 Source: patient, RN notes reviewed and old records reviewed Mode of arrival: ambulatory Limitations: no limitations History of Present Illness HPI narrative: This is a 66 year old male with history of of CHF, COPD, hyperlipidemia, and obesity who presents for evaluation of left anterior chest pain. Patient states just prior to arrival he was coughing and he felt something pop in his chest. He is reporting severe pain that is worse with coughing, moving and breath. He has not taken anything for pain. Patient was evaluated for similar pain 1- 2 weeks at this ER. He was admitted, and treated for pneumonia and CHF. HE was also given lidocaine patch for his pain at that time. He reports that he completed his discharge medications. He denies shortness of breath, fever, nausea or vomiting. He is just complaining of severe pain. Related Data Home Medications Medication Instructions Recorded Confirmed Breztri Aerosphere 1 inh INHALATION Q6-8H PRN 08/25/21 10/26/21 allopurinol 100 mg PO DAILY 08/25/21 10/26/21 finasteride 5 mg PO DAILY 08/25/21 10/26/21 gabapentin 300 mg PO TID 08/25/21 10/26/21 lisinopril 10 mg PO DAILY 08/25/21 10/26/21 metoprolol succinate 25 mg PO DAILY 08/25/21 10/26/21 prednisone 20 mg PO BID 08/25/21 10/26/21 quetiapine 50 mg PO HS 08/25/21 10/26/21 rosuvastatin 10 mg PO DAILY 08/25/21 10/26/21 tamsulosin 0.4 mg PO HS 08/25/21 10/26/21 Allergies Allergy/AdvReac Type Severity Reaction Status Date / Time poison isabelle extract Allergy Mild RASH Verified 10/25/21 20:25 Review of Systems Review of Systems: All systems reviewed & are unremarkable except as noted in HPI and below Constitutional: Constitutional: Denies chills and Denies fever(s) [facility] Past Medical History Medical History (Updated 10/26/21 @ 05:31 by Florinda Dunham MD) BPH (benign prostatic hyperplasia) CAD (coronary artery disease) Minimal blockages treated medically Chronic back pain Due to a pinched nerve COPD (chronic obstructive pulmonary disease) Depression Gout Hyperlipidemia Hypertension Surgical History Surgical History H/O cardiac catheterization Minimal blockages. History of kidney surgery Right kidney History of shoulder surgery On the left Family History Family History (Updated 10/26/21 @ 03:15 by Kate Shelton RN) Mother Family history of malignant neoplasm of breast in first degree relative Diabetes mellitus Father Family history of throat cancer Sibling Cancer of back Social History Social History (Updated 10/12/21 @ 11:45 by Nilesh Lawson MD) Social History: The patient is . He does have a significant other. Patient has smoked off and on for about 50 years up to 1.5 packs per day. He resume smoking 2 weeks ago. He drinks 15 alcoholic drinks per month. Denies drug use. The son is the durable power civil rights attorney for healthcare. The patient is listed as a full code. Smoking packs per day: 1 Smoking cigarettes per day: 20.0 Years smoked: 35 Smoking pack-years: 35.00 Smoking status: Current every day smoker Tobacco type: cigarettes Second hand tobacco smoke exposure: Yes Alcohol intake: current Drinks per week: 6 Substance use: never Substance use type: does not use Spiritual care concerns: No Exam Const: General: cooperative, alert and uncomfortable Nutritional Appearance: obese Orientation/consciousness: patient oriented x3 HENMT: Head: normocephalic and atraumatic Face and sinus: face symmetric Throat: posterior oropharynx normal, tonsils normal and uvula midline Eyes: Pupils: Equal, round and reactive pupils present EOM: EOMs intact bilaterally Chest: Chest palpation & inspection: tenderness rib (left anterior around 6,7, no crep
[2021-10-25] MEDS: LIDOCAINE 5% PATCH 1 PATCH TRANSDERM (21:36)
[2021-10-25] MEDS: KETOROLAC 15 MG/ML VIAL (*BKC) IV PUSH (21:41)
[2021-10-25 21:49] LABS: Basophils Percent Auto 0.2 % (0.2-1.2); Eosinophils Percent Auto 0.2 % (0-4.4); Hematocrit 39.3 % (42.0-52.0); Hemoglobin 13.1 g/dL (14.0-18.0); Immature Granulocyte Absolute 0.14 K/mm3 (0.00-0.031); Immature Granulocyte Percent A 0.8 % (0-0.5); Lymphocytes Percent Auto 5.6 % (18.3-44.2); Mean Corpuscular HGB Conc 33.3 g/dl (32-36); Mean Corpuscular Hemoglobin 31.2 pg (26-34); Mean Corpuscular Volume 93.6 fl (80-100); Mean Platelet Volume 9.8 fl (7.4-10.4); Monocytes Absolute Auto 0.7 K/mm3 (0.1-0.6); Monocytes Percent Auto 3.9 % (2.6-8.5); Neutrophils Absolute Auto 15.9 K/mm3 (1.3-6.7); Neutrophils Percent Auto 89.3 % (45.5-73.1); Platelet Count Result 258 k/mm3 (150-375); Red Cell Distribution Width 14.5 % (11.5-14.5); White Blood Count 17.8 K/mm3 (4.5-10.0)
[2021-10-25 21:58] LABS: Alanine Aminotransferase 29 U/L (4-50); Albumin Level 4.5 g/dL (3.5-5.1); Alkaline Phosphatase 97 U/L (38-126); Anion Gap 10 mmol/L (8-16); Aspartate Amino Transferase 32 U/L (17-59); Bilirubin,Total 0.4 mg/dL (0.2-1.3); Blood Urea Nitrogen 35 mg/dL (9-20); Carbon Dioxide 20 mmol/L (22-30); Chloride 100 mmol/L (98-107); Estimated CRCL calculation 45 ml/min; Estimated Glomerular Filt Rate 40; Glucose 113 mg/dL (65-110); Potassium 5.3 mmol/L (3.4-5.0); Sodium 130 mmol/L (137-145)
[2021-10-25 22:03] LABS: INR 0.9; Prothrombin Time 12.5 Seconds (11.1-14.7)
[2021-10-25 22:04] LABS: Partial Thromboplastin Time 24.3 SECONDS (22.3-36.8)
[2021-10-25 22:10] LABS: NT Pro B Type Natriuretic Pept 144 pg/mL (5-100); Troponin I < 0.012 ng/mL (0.000-0.034)
[2021-10-25 22:20] LABS: D Dimer 2.06 ug/mL (<0.48)
[2021-10-25] MEDS: SODIUM CHLORIDE 0.9% IV 500 ML 999 ML IV CONT (22:41)
[2021-10-25 22:46] LABS: pH ABG 7.459 (7.350-7.450)
[2021-10-25 22:47] LABS: Alveolar/Arterial O2 Gradient 42.1 mmHg; Base Excess ABG -2.2 mEq/l (+/-2.0); Carboxyhemoglobin 2.9 % THb (0-2.0); HCO3 ABG 20.5 mEq/l (22.0-26.0); Methemoglobin ABG 0.3 %THb (0-1.5); Oxygen Content ABG 17.3 %vol (16.0-22.0); Oxygen Saturation ABG 95.5 % (95.0-100.0); Oxyhemoglobin 91.8 % THb (90.0-100.0); PCO2 ABG 29.6 mmHg (35.0-45.0); PO2 ABG 72.2 mmHg (80.0-100.0); Total Hemoglobin 13.4 g/dL (12.0-18.0)
[2021-10-25 22:48] LABS: Device ROOM AIR; Fractional Inspired Oxygen 21 %; Modified Allen's Test Pass; PO2 FiO2 Ratio Arterial Blood 3.44 %; Site Drawn RIGHT RADIAL
[2021-10-26] VITALS (18 sets, daily range): BP systolic 113–171; BP diastolic 64–89; PULSE 63–95; RESP 18–24; TEMP 36.2–36.8; O2SAT 91–98; BMI 36.9
--- NOTE | 2021-10-26 00:02 | PM.IMHP ---
H&P: HPI History of Present Illness Date/Time: 10/26/21 00:02 Chief Complaint: CHEST PAIN Narrative: This is a 66-year-old male with past medical history significant for chronic back pain, tobacco dependence, COPD/emphysema patient on 3-4 L of supplemental oxygen at home rib fracture, gout, hypertension, dyslipidemia, benign prostatic hyperplasia. Patient with a recent admission and discharge when he was treated for chest pain cardiology was consulted and ultimately it was established that the patient had a noncardiac origin pain secondary to fractured ribs on his ribcage. Patient now returns with similar complaint. Patient is a very poor historian Maira give me any history but he follows up at outside hospital for his chronic back pain he had recent back surgery as well. Preliminary workup has been significant for CBC with a WBC count of 17,000, potassium of 5.3 ,sodium of 130, ABG pH is 7.4 pCO2 of 29 PO2 of 72 8 urinalysis was negative a CT angio was negative for acute pulmonary embolism however showed acute left 6 rib fracture. Patient has had persistent cough, productive, shortness of breath, no fevers ,no rigors, no chills. Patient also had a fall a few days prior coming to the hospital he was unable to get up on his own however there was no loss of consciousness. Decision has been made to admit the patient for further evaluation, management and treatment. Review of Systems Review of Systems: Chest pain, cough. Constitutional: Constitutional: Denies chills, Denies fatigue, Denies fever(s), Denies malaise, Denies night sweats and Denies weakness Eyes: Eyes: Denies change in vision ENT: Denies dysphagia, Denies nasal congestion, Denies nasal discharge, Denies nasal obstruction and Denies odynophagia Cardiovascular: Cardiovascular: Denies leg edema, Denies lightheadedness, Denies radiating jaw, neck or arm pain, Denies palpitations, Denies dyspnea on exertion and Denies orthopnea Respiratory: Respiratory: Denies change in phlegm color, Reports cough, Denies excessive phlegm production, Reports pain on inspiration and Reports pain with cough Gastrointestinal: Gastrointestinal: Denies abdominal pain, Denies dyspepsia, Denies heartburn, Denies diarrhea, Denies nausea and Denies vomiting Genitourinary: Genitourinary: Reports no additional male genitourinary complaints and Reports as per HPI Musculoskeletal: Musculoskeletal: Reports no additional musculoskeletal complaints and Reports as per HPI Integumentary/Breasts: Skin/Breast: Denies rash Neurologic: Denies focal weakness and Denies Sensory deficit (Neuro) Psychiatric: Psychiatric: Reports no additional psychiatric complaints and Reports as per HPI Endocrine: Endocrine: Reports no additional endocrine complaints and Reports as per HPI Hematologic/Lymphatic: Hematologic/Lymphatic: Reports no additional hematologic/lymphatic complaints and Reports as per HPI Allergic/Immunologic: Allergic/Immunologic: Reports no additional allergic/immunologic complaints and Reports as per HPI PMFSH Past Medical History Medical History (Updated 10/12/21 @ 19:11 by Florinda Dunham MD) BPH (benign prostatic hyperplasia) CAD (coronary artery disease) Minimal blockages treated medically Chronic back pain Due to a pinched nerve COPD (chronic obstructive pulmonary disease) Depression Gout Hyperlipidemia Hypertension Surgical History Surgical History H/O cardiac catheterization Minimal blockages. History of kidney surgery Right kidney History of shoulder surgery On the left Family History Family History Mother Family history of malignant neoplasm of breast in first degree relative Father Family history of throat cancer Sibling Cancer of back Social History Social History (Updated 10/12/21 @ 11:45 by Nilesh Lawson MD) Social History: The patient is .
[2021-10-26 00:17] LABS: Add Urine Microscopic? NO; Appearance Urine Clear (Clear); Bilirubin Urine Negative (Negative); Blood Urine Negative (Negative); Color Urine Yellow (Yellow); Glucose Urine UA Negative (Negative); Ketones Urine Negative (Negative); Leukocyte Esterase Ur Negative LEU/UL (Negative); Nitrate Urine Negative (Negative); Protein Urine Negative (Negative); Specific Grav Ur 1.015 (1.001-1.035); Urobilinogen Urine Negative mg/dL (<2.0)
[2021-10-26] MEDS: ALBUTEROL SULFATE NEB 2.5 MG/0.5 ML INH 5 MG INHALATION (00:18)
[2021-10-26] MEDS: MORPHINE SULFATE (*CRX) 4 MG/ML INJ IV PUSH ×5 (01:10→21:49)
[2021-10-26] MEDS: HYDROcodone/acetaminophen (*CRX) 5-325 MG TABLET 1 TAB PO ×3 (03:12→17:31)
--- NOTE | 2021-10-26 04:45 | ADMGEN ---
This patient, Renato García, was admitted to IMU Room 210-01 on at 0300. Patient/family oriented to hospital policies and general routines including ID bracelet, bed and alarms, visiting hours, pain management, procedures, bathroom and other care routines, personal items, smoking policy, room service/diet, and visiting hours. Information on how to activate the Rapid Response Team has been discussed. Patient/Family are encouraged to report perceived risks to care and to ask questions if they do not understand what they are told or what they should do.
[2021-10-26] MEDS: NICOTINE (*PBKC) 14 MG PATCH 1 PATCH TRANSDERM (05:07)
[2021-10-26] MEDS: cefTRIAXone 2 GM in SODIUM CHLORIDE 0.9% IV 100 ML 200 ML IVPB (05:08)
[2021-10-26 05:20] LABS: Basophils Percent Auto 0.2 % (0.2-1.2); Eosinophils Absolute Auto 0.1 K/mm3 (0-0.3); Eosinophils Percent Auto 0.4 % (0-4.4); Hematocrit 40.5 % (42.0-52.0); Hemoglobin 13.5 g/dL (14.0-18.0); Immature Granulocyte Absolute 0.18 K/mm3 (0.00-0.031); Immature Granulocyte Percent A 0.9 % (0-0.5); Lymphocytes Absolute Auto 1.94 K/mm3 (0.9-3.2); Lymphocytes Percent Auto 9.8 % (18.3-44.2); Mean Corpuscular HGB Conc 33.3 g/dl (32-36); Mean Corpuscular Hemoglobin 31.3 pg (26-34); Monocytes Absolute Auto 1.2 K/mm3 (0.1-0.6); Monocytes Percent Auto 5.9 % (2.6-8.5); Neutrophils Absolute Auto 16.4 K/mm3 (1.3-6.7); Neutrophils Percent Auto 82.8 % (45.5-73.1); Platelet Count Result 287 k/mm3 (150-375); Red Blood Count 4.31 M/mm3 (4.6-6.20); Red Cell Distribution Width 14.5 % (11.5-14.5); White Blood Count 19.8 K/mm3 (4.5-10.0)
[2021-10-26 05:34] LABS: Anion Gap 16 mmol/L (8-16); Blood Urea Nitrogen 42 mg/dL (9-20); Carbon Dioxide 19 mmol/L (22-30); Chloride 100 mmol/L (98-107); Estimated CRCL calculation 44 ml/min; Estimated Glomerular Filt Rate 38; Glucose 106 mg/dL (65-110); Potassium 4.8 mmol/L (3.4-5.0); Sodium 135 mmol/L (137-145)
[2021-10-26] MEDS: ALBUTEROL SULFATE NEB 2.5 MG/0.5 ML INH INHALATION ×3 (08:47→20:04)
[2021-10-26] MEDS: IPRATROPIUM BR 0.02% INH SOLN 0.5 MG/2.5 ML VIAL INHALATION ×3 (08:48→20:04)
--- NOTE | 2021-10-26 09:10 | PM.IMPN ---
Progress Note: A&P Assessment and Plan (1) Pneumonia: Code(s): J18.9 - Pneumonia, unspecified organism Status: Acute Assessment and Plan: Started on Rocephin and Zithromax Blood cultures pending Supportive care CT chest reviewed Chest x-ray reviewed (2) Leukocytosis: Code(s): D72.829 - Elevated white blood cell count, unspecified Status: Acute Assessment and Plan: Continue to monitor (3) Tobacco abuse: Code(s): Z72.0 - Tobacco use Status: Acute Assessment and Plan: Nicotine patches knee (4) COPD (chronic obstructive pulmonary disease): Code(s): J44.9 - Chronic obstructive pulmonary disease, unspecified Status: Chronic Assessment and Plan: Schedule breathing treatments On supplemental oxygen Trying keep oxygen saturation at 94% (5) Chronic back pain: Code(s): M54.9 - Dorsalgia, unspecified; G89.29 - Other chronic pain Status: Chronic Assessment and Plan: Tylenol as needed (6) Chest wall trauma: Code(s): S29.9XXA - Unspecified injury of thorax, initial encounter Status: Acute Assessment and Plan: Patient with acute 6 rib fracture (7) VICTORIA (acute kidney injury): Code(s): N17.9 - Acute kidney failure, unspecified Status: Acute Assessment and Plan: Patient has been taking ibuprofen due to his chronic back pain issues Hold NSAID (8) Gout: Code(s): M10.9 - Gout, unspecified Status: Chronic Assessment and Plan: Appears to be stable Subjective Date/time seen: 10/26/21 09:10 Interval history: I agree with current assessment and plan; will continue to monitor. Objective Data Vital Signs Vital Signs: Vital Signs - 24 hr 10/25/21 20:20 10/26/21 00:20 10/26/21 02:35 Temperature 36.6 C Pulse Rate 98 90 90 Respiratory Rate 20 18 Blood Pressure 151/61 H Pulse Oximetry 94 97 10/26/21 02:58 10/26/21 04:00 10/26/21 05:15 Temperature 36.4 C 36.7 C Pulse Rate 90 82 95 Respiratory Rate 22 H 24 H Blood Pressure 139/80 157/74 H Pulse Oximetry 91 91 96 10/26/21 06:00 10/26/21 07:46 Temperature 36.8 C Pulse Rate 78 73 Respiratory Rate 20 Blood Pressure 121/80 Pulse Oximetry 96 Intake/Output Intake/Output: Intake & Output 10/23/21 10/24/21 10/25/21 10/26/21 23:59 23:59 23:59 23:59 Intake Total 500 450 Output Total 600 Balance 500 -150 Meds/Results Medications: Active Medications Generic Name Dose Route Start Last Admin Trade Name Freq PRN Reason Stop Dose Admin Acetaminophen/Codeine Phosphate 1 tab 10/26/21 02:58 Acetaminophen/Codeine (*Crx) 300/30 Mg Tablet PO Q4H PRN Pain Rated 4-6 Hydrocodone Bitart/Acetaminophen 1 tab 10/26/21 00:01 10/26/21 03:12 Hydrocodone/Acetaminophen (*Crx) 5-325 Mg Tablet PO 1 tab Q4H PRN Administration Pain Rated 4-6 Albuterol 2.5 mg 10/26/21 04:00 10/26/21 08:47 Albuterol Sulfate Neb 2.5 Mg/0.5 Ml Inh INHALATION 2.5 mg Q4HRT ALEX Administration Ceftriaxone Sodium 2 gm/ 100 mls @ 200 mls/hr 10/26/21 03:10 10/26/21 05:40 Sodium Chloride IVPB Infused DAILY@2200 ALEX Infusion Azithromycin 500 mg in 250 mls @ 250 mls/hr 10/26/21 03:10 10/26/21 06:51 Zithromax IVPB Infused DAILY@2200 ALEX Infusion Ipratropium [place] 0.5 mg 10/26/21 04:00 10/26/21 08:48 Ipratropium Br 0.02% Inh Soln 0.5 Mg/2.5 Ml Vial INHALATION 0.5 mg Q4HRT ALEX Administration Morphine Sulfate 4 mg 10/26/21 00:01 10/26/21 06:51 Morphine Sulfate (*Crx) 4 Mg/Ml Inj IV PUSH 4 mg Q2H PRN Administration Pain Rated 7-10 Nicotine 1 patch 10/26/21 04:00 10/26/21 05:07 Nicotine (*Pbkc) 14 Mg Patch TRANSDERM 1 patch QAM ALEX Administration Ondansetron HCl 4 mg 10/26/21 00:01 Ondansetron Inj 4 Mg/2 Ml Vial IV PUSH Q4H PRN Nausea Radiology Results: ITS Impressions Chest X-Ray 12/08/21 21:06 IMPRESSION: No a
[2021-10-26] MEDS: guaiFENesin 200 MG/10 ML UDC 300 MG PO ×3 (12:43→23:00)
--- NOTE | 2021-10-26 13:31 | PC.NURSE ---
On 10/26/21, the student, [Clementina Cramer], provided care and completed [facility] documentation on this patient. I have reviewed the student's documentation and agree with the findings.
[2021-10-26] MEDS: GABAPENTIN 300 MG CAPSULE PO ×2 (15:59→21:49)
[2021-10-26] MEDS: QUEtiapine FUMARATE 25 MG TABLET 50 MG PO (21:50)
[2021-10-26] MEDS: TAMSULOSIN HCL 0.4 MG CAPSULE PO (21:50)
[2021-10-26] MEDS: cefTRIAXone 2 GM in SODIUM CHLORIDE 0.9% IV 100 ML IVPB (21:51)
[2021-10-26] MEDS: ACETAMINOPHEN/CODEINE (*CRX) 300/30 MG TABLET 1 TAB PO (23:36)
[2021-10-27] VITALS (17 sets, daily range): BP systolic 131–145; BP diastolic 60–108; PULSE 65–118; RESP 18–20; TEMP 36.6–36.7; O2SAT 91–97
[2021-10-27] MEDS: ALBUTEROL SULFATE NEB 2.5 MG/0.5 ML INH INHALATION ×5 (00:14→15:29)
[2021-10-27] MEDS: IPRATROPIUM BR 0.02% INH SOLN 0.5 MG/2.5 ML VIAL INHALATION ×5 (00:14→15:29)
[2021-10-27] MEDS: MORPHINE SULFATE (*CRX) 4 MG/ML INJ IV PUSH ×5 (01:44→16:35)
[2021-10-27] MEDS: HYDROcodone/acetaminophen (*CRX) 5-325 MG TABLET 1 TAB PO (01:44)
--- NOTE | 2021-10-27 04:20 | PCRCNOTE ---
PT REFUSED TREATMENT STATING HE WAS FINALLY SLEEPING PEACEFULLY
[2021-10-27] MEDS: GABAPENTIN 300 MG CAPSULE PO ×3 (05:43→23:40)
[2021-10-27] MEDS: ACETAMINOPHEN/CODEINE (*CRX) 300/30 MG TABLET 1 TAB PO (05:44)
[2021-10-27] MEDS: ENOXAPARIN 40 MG/0.4 ML SYRINGE SUB-Q (09:06)
[2021-10-27] MEDS: LIDOCAINE 5% PATCH 2 PATCH TRANSDERM (09:08)
[2021-10-27] MEDS: NICOTINE (*PBKC) 14 MG PATCH 1 PATCH TRANSDERM (09:08)
[2021-10-27] MEDS: ROSUVASTATIN 10 MG TABLET PO (09:42)
[2021-10-27] MEDS: FINASTERIDE 5 MG TABLET PO (09:43)
[2021-10-27] MEDS: allopurinoL 100 MG TABLET PO (09:43)
[2021-10-27] MEDS: guaiFENesin 200 MG/10 ML UDC 300 MG PO ×2 (10:29→23:32)
[2021-10-27] MEDS: FUROSEMIDE INJ 40 MG/4 ML VIAL IV PUSH (13:31)
--- NOTE | 2021-10-27 13:46 | PC.NURSE ---
On 10/27/21, the student, [Joanie Reddy], provided care and completed [facility] documentation on this patient. I have reviewed the student's documentation and agree with the findings.
[2021-10-27] MEDS: methylPREDNISolone SOD SUCC 125 MG VIAL 80 MG IV PUSH (16:31)
--- NOTE | 2021-10-27 18:47 | PM.IMPN ---
Progress Note: A&P Assessment and Plan (1) Pneumonia: Code(s): J18.9 - Pneumonia, unspecified organism Status: Acute Assessment and Plan: Started on Rocephin and Zithromax Blood cultures pending Supportive care CT chest reviewed Chest x-ray reviewed 10/27/2021 interval history: patient s/p fall on leaf blower 10/10/21 was admitted with left sided ribs pain and PNA, and was treated with norco, steroids as patient has COPD and still smokes, patient now presents with a similar presentation with pnemonia, left sided ribs pain, exacerbation of COPD. will continue abx, add lasix, methylprednisone, Flexeril and Debord, will CPM, will monitor and plan. (2) Leukocytosis: Code(s): D72.829 - Elevated white blood cell count, unspecified Status: Acute Assessment and Plan: Continue to monitor (3) Tobacco abuse: Code(s): Z72.0 - Tobacco use Status: Acute Assessment and Plan: Nicotine patches knee (4) COPD (chronic obstructive pulmonary disease): Code(s): J44.9 - Chronic obstructive pulmonary disease, unspecified Status: Chronic Assessment and Plan: Schedule breathing treatments On supplemental oxygen Trying keep oxygen saturation at 94% (5) Chronic back pain: Code(s): M54.9 - Dorsalgia, unspecified; G89.29 - Other chronic pain Status: Chronic Assessment and Plan: Tylenol as needed (6) Chest wall trauma: Code(s): S29.9XXA - Unspecified injury of thorax, initial encounter Status: Acute Assessment and Plan: Patient with acute 6 rib fracture (7) VICTORIA (acute kidney injury): Code(s): N17.9 - Acute kidney failure, unspecified Status: Acute Assessment and Plan: Patient has been taking ibuprofen due to his chronic back pain issues Hold NSAID (8) Gout: Code(s): M10.9 - Gout, unspecified Status: Chronic Assessment and Plan: Appears to be stable Subjective Date/time seen: 10/27/21 18:47 Chief Complaint: CHEST PAIN Narrative: This is a 66-year-old male with past medical history significant for chronic back pain, tobacco dependence, COPD/emphysema patient on 3-4 L of supplemental oxygen at home rib fracture, gout, hypertension, dyslipidemia, benign prostatic hyperplasia. Patient with a recent admission and discharge when he was treated for chest pain cardiology was consulted and ultimately it was established that the patient had a noncardiac origin pain secondary to fractured ribs on his ribcage. Patient now returns with similar complaint. Patient is a very poor historian Maira give me any history but he follows up at outside hospital for his chronic back pain he had recent back surgery as well. Preliminary workup has been significant for CBC with a WBC count of 17,000, potassium of 5.3 ,sodium of 130, ABG pH is 7.4 pCO2 of 29 PO2 of 72 8 urinalysis was negative a CT angio was negative for acute pulmonary embolism however showed acute left 6 rib fracture. Patient has had persistent cough, productive, shortness of breath, no fevers ,no rigors, no chills. Patient also had a fall a few days prior coming to the hospital he was unable to get up on his own however there was no loss of consciousness. Decision has been made to admit the patient for further evaluation, management and treatment. 10/27/2021 interval history: patient s/p fall on leaf blower 10/10/21 was admitted with left sided ribs pain and PNA, and was treated with norco, steroids as patient has COPD and still smokes, patient now presents with a similar presentation with pnemonia, left sided ribs pain, exacerbation of COPD. will continue abx, add lasix, methylprednisone, Flexeril and Debord, will CPM, will monitor and plan. Review of Systems Review of Systems: All systems reviewed & are unremarkable except as noted in HPI and below Exam Narrative: moderately obese Patient is comfortable, NAD HEENT: eyes are clear and none icteri
--- NOTE | 2021-10-27 19:16 | PC.NURSE ---
This patient, Renato García, was transferred to [facility] on 10/27/21 at 1916. Personal belongings sent with patient. Report given to RADHA Velarde. Appropriate documentation sent with patient.
[2021-10-27] MEDS: cefTRIAXone 2 GM in SODIUM CHLORIDE 0.9% IV 100 ML 200 ML IVPB (23:29)
[2021-10-27] MEDS: QUEtiapine FUMARATE 25 MG TABLET 50 MG PO (23:35)
[2021-10-27] MEDS: TAMSULOSIN HCL 0.4 MG CAPSULE PO (23:39)
[2021-10-28] VITALS (8 sets, daily range): BP systolic 129–139; BP diastolic 75–90; PULSE 85–101; RESP 14–22; TEMP 36.1–37; O2SAT 93–94
--- NOTE | 2021-10-28 01:00 | PCRCNOTE ---
therapist in code yellow ed
--- NOTE | 2021-10-28 01:02 | PCRCNOTE ---
pt awoken by therapist. pt stated he would like to sleep instead of doing treatment
[2021-10-28] MEDS: GABAPENTIN 300 MG CAPSULE PO ×3 (05:43→21:15)
[2021-10-28] MEDS: HYDROcodone/acetaminophen (*CRX) 5-325 MG TABLET 1 TAB PO ×3 (05:48→21:12)
[2021-10-28] MEDS: LIDOCAINE 5% PATCH 2 PATCH TRANSDERM (08:59)
[2021-10-28] MEDS: ENOXAPARIN 40 MG/0.4 ML SYRINGE SUB-Q (08:59)
[2021-10-28] MEDS: NICOTINE (*PBKC) 14 MG PATCH 1 PATCH TRANSDERM (08:59)
[2021-10-28] MEDS: FUROSEMIDE INJ 40 MG/4 ML VIAL IV PUSH (09:00)
[2021-10-28] MEDS: ROSUVASTATIN 10 MG TABLET PO (09:01)
[2021-10-28] MEDS: allopurinoL 100 MG TABLET PO (09:01)
[2021-10-28] MEDS: FINASTERIDE 5 MG TABLET PO (09:01)
[2021-10-28] MEDS: methylPREDNISolone SOD SUCC 125 MG VIAL 80 MG IV PUSH ×2 (09:02→17:10)
[2021-10-28] MEDS: guaiFENesin 200 MG/10 ML UDC 300 MG PO (09:06)
--- NOTE | 2021-10-28 10:36 | PCRCNOTE ---
Window of time for administration has passed. See next scheduled administration.
[2021-10-28] MEDS: ALBUTEROL SULFATE NEB 2.5 MG/0.5 ML INH INHALATION ×2 (12:49→21:22)
[2021-10-28] MEDS: IPRATROPIUM BR 0.02% INH SOLN 0.5 MG/2.5 ML VIAL INHALATION ×2 (12:50→21:21)
--- NOTE | 2021-10-28 13:49 | PM.IMPN ---
Progress Note: A&P Assessment and Plan (1) Pneumonia: Code(s): J18.9 - Pneumonia, unspecified organism Status: Acute Assessment and Plan: Started on Rocephin and Zithromax Blood cultures pending Supportive care CT chest reviewed Chest x-ray reviewed 10/28/21 13:49 10/27/2021 interval history: patient s/p fall on leaf blower 10/10/21 was admitted with left sided ribs pain and PNA, and was treated with norco, steroids as patient has COPD and still smokes, patient now presents with a similar presentation with pnemonia, left sided ribs pain, exacerbation of COPD. will continue abx, add lasix, methylprednisone, Flexeril and Benton, will CPM, will monitor and plan. 10/28/2021 interval history: patient s/p fall on leaf blower 10/10/21 was admitted with left sided ribs pain and PNA, and was treated with norco, steroids as patient has COPD and still smokes, patient now presents with a similar presentation with pnemonia, left sided ribs pain, exacerbation of COPD. continued abx, added lasix, methylprednisone, Flexeril and Benton, will CPM, today patient clinically stable, is not a short of breath, pain in the hips is improved, will monitor and plan. (2) Leukocytosis: Code(s): D72.829 - Elevated white blood cell count, unspecified Status: Acute Assessment and Plan: Continue to monitor (3) Tobacco abuse: Code(s): Z72.0 - Tobacco use Status: Acute Assessment and Plan: Nicotine patches knee (4) COPD (chronic obstructive pulmonary disease): Code(s): J44.9 - Chronic obstructive pulmonary disease, unspecified Status: Chronic Assessment and Plan: Schedule breathing treatments On supplemental oxygen Trying keep oxygen saturation at 94% (5) Chronic back pain: Code(s): M54.9 - Dorsalgia, unspecified; G89.29 - Other chronic pain Status: Chronic Assessment and Plan: Tylenol as needed (6) Chest wall trauma: Code(s): S29.9XXA - Unspecified injury of thorax, initial encounter Status: Acute Assessment and Plan: Patient with acute 6 rib fracture (7) VICTORIA (acute kidney injury): Code(s): N17.9 - Acute kidney failure, unspecified Status: Acute Assessment and Plan: Patient has been taking ibuprofen due to his chronic back pain issues Hold NSAID (8) Gout: Code(s): M10.9 - Gout, unspecified Status: Chronic Assessment and Plan: Appears to be stable Subjective Date/time seen: 10/28/21 13:49 10/27/2021 interval history: patient s/p fall on leaf blower 10/10/21 was admitted with left sided ribs pain and PNA, and was treated with norco, steroids as patient has COPD and still smokes, patient now presents with a similar presentation with pnemonia, left sided ribs pain, exacerbation of COPD. will continue abx, add lasix, methylprednisone, Flexeril and Benton, will CPM, will monitor and plan. 10/28/2021 interval history: patient s/p fall on leaf blower 10/10/21 was admitted with left sided ribs pain and PNA, and was treated with norco, steroids as patient has COPD and still smokes, patient now presents with a similar presentation with pnemonia, left sided ribs pain, exacerbation of COPD. continued abx, added lasix, methylprednisone, Flexeril and Benton, will CPM, today patient clinically stable, is not a short of breath, pain in the hips is improved, will monitor and plan. Review of Systems Review of Systems: All systems reviewed & are unremarkable except as noted in HPI and below Exam Narrative: moderately obese Patient is comfortable, NAD HEENT: eyes are clear and none icteric LUNGS: bilateral fair air entry with rhonchi and wheezing HEART: RR S1S2 ABD: obese distant Lower edema SKIN: nonjaundiced Neuro: grossly intact. Objective Data Vital Signs Vital Signs: Vital Signs - 24 hr 10/27/21 15:29 10/27/21 15:37 10/27/21 16:00 Temperature 97.8 F Pulse Rate 94 97 97 Respiratory Rate 20
[2021-10-28] MEDS: CYCLOBENZAPRINE HCL 5 MG TABLET PO (21:14)
[2021-10-28] MEDS: TAMSULOSIN HCL 0.4 MG CAPSULE PO (21:16)
[2021-10-28] MEDS: QUEtiapine FUMARATE 25 MG TABLET 50 MG PO (21:17)
[2021-10-28] MEDS: FAMOTIDINE 20 MG TABLET PO (21:17)
[2021-10-28] MEDS: cefTRIAXone 2 GM in SODIUM CHLORIDE 0.9% IV 100 ML 200 ML IVPB (21:20)
[2021-10-29] VITALS (10 sets, daily range): BP systolic 137–145; BP diastolic 61–74; PULSE 80–97; RESP 14–22; TEMP 36.7–37.2; O2SAT 94–95
[2021-10-29] MEDS: IPRATROPIUM BR 0.02% INH SOLN 0.5 MG/2.5 ML VIAL INHALATION ×5 (01:20→16:45)
[2021-10-29] MEDS: ALBUTEROL SULFATE NEB 2.5 MG/0.5 ML INH INHALATION ×5 (01:20→16:46)
--- NOTE | 2021-10-29 06:10 | PCRCNOTE ---
Window of time for administration has passed. See next scheduled administration.
[2021-10-29] MEDS: GABAPENTIN 300 MG CAPSULE PO ×3 (07:01→21:16)
[2021-10-29] MEDS: HYDROcodone/acetaminophen (*CRX) 5-325 MG TABLET 1 TAB PO ×3 (07:04→21:19)
[2021-10-29] MEDS: NICOTINE (*PBKC) 14 MG PATCH 1 PATCH TRANSDERM (08:07)
[2021-10-29] MEDS: LIDOCAINE 5% PATCH 2 PATCH TRANSDERM (08:07)
[2021-10-29] MEDS: FUROSEMIDE INJ 40 MG/4 ML VIAL IV PUSH (08:07)
[2021-10-29] MEDS: methylPREDNISolone SOD SUCC 125 MG VIAL 80 MG IV PUSH ×2 (08:07→16:50)
[2021-10-29] MEDS: ENOXAPARIN 40 MG/0.4 ML SYRINGE SUB-Q (08:07)
[2021-10-29] MEDS: ROSUVASTATIN 10 MG TABLET PO (08:08)
[2021-10-29] MEDS: FAMOTIDINE 20 MG TABLET PO ×2 (08:08→21:17)
[2021-10-29] MEDS: allopurinoL 100 MG TABLET PO (08:08)
[2021-10-29] MEDS: FINASTERIDE 5 MG TABLET PO (08:08)
[2021-10-29] MEDS: FLUTICASONE/UMECLIDIN/VILANTER 100-62.5-25 MCG ELLIPTA 1 PUFF INHALATION (08:51)
--- NOTE | 2021-10-29 10:31 | PM.IMPN ---
Progress Note: A&P Assessment and Plan (1) Pneumonia: Code(s): J18.9 - Pneumonia, unspecified organism Status: Acute Assessment and Plan: Started on Rocephin and Zithromax Blood cultures pending Supportive care CT chest reviewed Chest x-ray reviewed 10/29/21 10:31 10/27/2021 interval history: patient s/p fall on leaf blower 10/10/21 was admitted with left sided ribs pain and PNA, and was treated with norco, steroids as patient has COPD and still smokes, patient now presents with a similar presentation with pnemonia, left sided ribs pain, exacerbation of COPD. will continue abx, add lasix, methylprednisone, Flexeril and Crawford, will CPM, will monitor and plan. 10/28/2021 interval history: patient s/p fall on leaf blower 10/10/21 was admitted with left sided ribs pain and PNA, and was treated with norco, steroids as patient has COPD and still smokes, patient now presents with a similar presentation with pnemonia, left sided ribs pain, exacerbation of COPD. continued abx, added lasix, methylprednisone, Flexeril and Crawford, will CPM, today patient clinically stable, is not a short of breath, pain in the hips is improved, will monitor and plan. 10/29/2021 interval history: patient s/p fall on leaf blower 10/10/21 was admitted with left sided ribs pain and PNA, and was treated with norco, steroids as patient has COPD and still smokes, patient now presents with a similar presentation with pnemonia, left sided ribs pain, exacerbation of COPD. continued abx, added lasix, methylprednisone, Flexeril and Crawford, patient clinical symptoms are improving will taper methylprednisone to prednisone, will CPM, today patient clinically stable, is not as short of breath, pain in the ribs is improved, will monitor and plan possibly discharge patient tomorrow.. (2) Leukocytosis: Code(s): D72.829 - Elevated white blood cell count, unspecified Status: Acute Assessment and Plan: Continue to monitor (3) Tobacco abuse: Code(s): Z72.0 - Tobacco use Status: Acute Assessment and Plan: Nicotine patches knee (4) COPD (chronic obstructive pulmonary disease): Code(s): J44.9 - Chronic obstructive pulmonary disease, unspecified Status: Chronic Assessment and Plan: Schedule breathing treatments On supplemental oxygen Trying keep oxygen saturation at 94% (5) Chronic back pain: Code(s): M54.9 - Dorsalgia, unspecified; G89.29 - Other chronic pain Status: Chronic Assessment and Plan: Tylenol as needed (6) Chest wall trauma: Code(s): S29.9XXA - Unspecified injury of thorax, initial encounter Status: Acute Assessment and Plan: Patient with acute 6 rib fracture (7) VICTORIA (acute kidney injury): Code(s): N17.9 - Acute kidney failure, unspecified Status: Acute Assessment and Plan: Patient has been taking ibuprofen due to his chronic back pain issues Hold NSAID (8) Gout: Code(s): M10.9 - Gout, unspecified Status: Chronic Assessment and Plan: Appears to be stable Subjective Date/time seen: 10/29/21 10:31 10/27/2021 interval history: patient s/p fall on leaf blower 10/10/21 was admitted with left sided ribs pain and PNA, and was treated with norco, steroids as patient has COPD and still smokes, patient now presents with a similar presentation with pnemonia, left sided ribs pain, exacerbation of COPD. will continue abx, add lasix, methylprednisone, Flexeril and Crawford, will CPM, will monitor and plan. 10/28/2021 interval history: patient s/p fall on leaf blower 10/10/21 was admitted with left sided ribs pain and PNA, and was treated with norco, steroids as patient has COPD and still smokes, patient now presents with a similar presentation with pnemonia, left sided ribs pain, exacerbation of COPD. continued abx, added lasix, methylprednisone, Flexeril and Crawford, will CPM, today patient clinically stable, is not a short of br
--- NOTE | 2021-10-29 13:52 | PCRCNOTE ---
Window of time for administration has passed. See next scheduled administration.
[2021-10-29] MEDS: cefTRIAXone 2 GM in SODIUM CHLORIDE 0.9% IV 100 ML 200 ML IVPB (21:15)
[2021-10-29] MEDS: QUEtiapine FUMARATE 25 MG TABLET 50 MG PO (21:16)
[2021-10-29] MEDS: TAMSULOSIN HCL 0.4 MG CAPSULE PO (21:16)
[2021-10-30] MEDS: ALBUTEROL SULFATE NEB 2.5 MG/0.5 ML INH INHALATION ×2 (03:55→09:52)
[2021-10-30] MEDS: IPRATROPIUM BR 0.02% INH SOLN 0.5 MG/2.5 ML VIAL INHALATION ×2 (03:55→09:53)
[2021-10-30 03:56] VITALS: PULSE 82; O2SAT 93
[2021-10-30 04:02] VITALS: PULSE 80
[2021-10-30 05:12] VITALS: BP 107/52; PULSE 69; RESP 18; TEMP 36.6; O2SAT 92
[2021-10-30] MEDS: GABAPENTIN 300 MG CAPSULE PO (05:40)
[2021-10-30 09:07] VITALS: BP 147/93; PULSE 90; RESP 18; TEMP 36.6; O2SAT 94
[2021-10-30 09:21] LABS: Hemoglobin 13.3 g/dL (14.0-18.0); Mean Corpuscular HGB Conc 33.3 g/dl (32-36); Mean Corpuscular Hemoglobin 30.9 pg (26-34); Platelet Count Result 245 k/mm3 (150-375); Red Cell Distribution Width 13.6 % (11.5-14.5); White Blood Count 24.2 K/mm3 (4.5-10.0)
[2021-10-30 09:43] LABS: Anion Gap 6 mmol/L (8-16); Blood Urea Nitrogen 18 mg/dL (9-20); Carbon Dioxide 25 mmol/L (22-30); Chloride 101 mmol/L (98-107); Estimated CRCL calculation 80 ml/min; Estimated Glomerular Filt Rate > 60; Glucose 180 mg/dL (65-110); Magnesium 2.4 mg/dL (1.6-2.3); Potassium 3.8 mmol/L (3.4-5.0); Sodium 132 mmol/L (137-145)
[2021-10-30 09:52] VITALS: PULSE 84
[2021-10-30 10:02] VITALS: PULSE 82
--- NOTE | 2021-10-30 10:04 | PM.DS ---
DS: Admitting Diagnosis Discharge Date 10/30/2021 Admitting Diagnosis Chest pain DS: Discharge Diagnosis Discharge Diagnosis (1) Pneumonia: Code(s): J18.9 - Pneumonia, unspecified organism Status: Acute Assessment and Plan: Started on Rocephin and Zithromax Blood cultures pending Supportive care CT chest reviewed Chest x-ray reviewed 10/29/21 10:31 10/27/2021 interval history: patient s/p fall on leaf blower 10/10/21 was admitted with left sided ribs pain and PNA, and was treated with norco, steroids as patient has COPD and still smokes, patient now presents with a similar presentation with pnemonia, left sided ribs pain, exacerbation of COPD. will continue abx, add lasix, methylprednisone, Flexeril and Motley, will CPM, will monitor and plan. 10/28/2021 interval history: patient s/p fall on leaf blower 10/10/21 was admitted with left sided ribs pain and PNA, and was treated with norco, steroids as patient has COPD and still smokes, patient now presents with a similar presentation with pnemonia, left sided ribs pain, exacerbation of COPD. continued abx, added lasix, methylprednisone, Flexeril and Motley, will CPM, today patient clinically stable, is not a short of breath, pain in the hips is improved, will monitor and plan. 10/29/2021 interval history: patient s/p fall on leaf blower 10/10/21 was admitted with left sided ribs pain and PNA, and was treated with norco, steroids as patient has COPD and still smokes, patient now presents with a similar presentation with pnemonia, left sided ribs pain, exacerbation of COPD. continued abx, added lasix, methylprednisone, Flexeril and Motley, patient clinical symptoms are improving will taper methylprednisone to prednisone, will CPM, today patient clinically stable, is not as short of breath, pain in the ribs is improved, will monitor and plan possibly discharge patient tomorrow.. (2) Leukocytosis: Code(s): D72.829 - Elevated white blood cell count, unspecified Status: Acute Assessment and Plan: Continue to monitor (3) Tobacco abuse: Code(s): Z72.0 - Tobacco use Status: Acute Assessment and Plan: Nicotine patches knee (4) COPD (chronic obstructive pulmonary disease): Code(s): J44.9 - Chronic obstructive pulmonary disease, unspecified Status: Chronic Assessment and Plan: Schedule breathing treatments On supplemental oxygen Trying keep oxygen saturation at 94% (5) Chronic back pain: Code(s): M54.9 - Dorsalgia, unspecified; G89.29 - Other chronic pain Status: Chronic Assessment and Plan: Tylenol as needed (6) Chest wall trauma: Code(s): S29.9XXA - Unspecified injury of thorax, initial encounter Status: Acute Assessment and Plan: Patient with acute 6 rib fracture (7) VICTORIA (acute kidney injury): Code(s): N17.9 - Acute kidney failure, unspecified Status: Acute Assessment and Plan: Patient has been taking ibuprofen due to his chronic back pain issues Hold NSAID (8) Gout: Code(s): M10.9 - Gout, unspecified Status: Chronic Assessment and Plan: Appears to be stable DS: Summary Hospital Course Reason for hospitalization: Chief Complaint: CHEST PAIN Narrative: This is a 66-year-old male with past medical history significant for chronic back pain, tobacco dependence, COPD/emphysema patient on 3-4 L of supplemental oxygen at home rib fracture, gout, hypertension, dyslipidemia, benign prostatic hyperplasia. Patient with a recent admission and discharge when he was treated for chest pain cardiology was consulted and ultimately it was established that the patient had a noncardiac origin pain secondary to fractured ribs on his ribcage. Patient now returns with similar complaint. Patient is a very poor historian Maira give me any history but he follows up at outside hospital for his chronic back pain he had recent back surgery as well. Prel
[2021-10-30] MEDS: FINASTERIDE 5 MG TABLET PO (10:35)
[2021-10-30] MEDS: allopurinoL 100 MG TABLET PO (10:35)
[2021-10-30] MEDS: FAMOTIDINE 20 MG TABLET PO (10:35)
[2021-10-30] MEDS: ROSUVASTATIN 10 MG TABLET PO (10:35)
[2021-10-30] MEDS: NICOTINE (*PBKC) 14 MG PATCH 1 PATCH TRANSDERM (10:36)
[2021-10-30] MEDS: LIDOCAINE 5% PATCH 2 PATCH TRANSDERM (10:38)
[2021-10-30] MEDS: HYDROcodone/acetaminophen (*CRX) 5-325 MG TABLET 1 TAB PO (10:41)
== END 2021-10-30 11:30 | disposition home or self-care (01) | DRG 194 ==
LOC: ANHED 21:40 → ANHIMU 10-26 02:16 → ANH3MEDSUR 10-30 10:04 → ANHIMU 11-01 08:35
PROVIDERS: Admitting Provider Internal Medicine; Emergency Provider General Practice; PCP Internal Medicine; Visit Provider Family Medicine
DX: J18.9 Pneumonia, unspecified organism (principal); S22.42XA Multiple fractures of ribs, left side, initial encounter for closed fracture; N17.9 Acute kidney failure, unspecified; W19.XXXA Unspecified fall, initial encounter; J43.9 Emphysema, unspecified; F17.210 Nicotine dependence, cigarettes, uncomplicated; M10.9 Gout, unspecified; M54.9 Dorsalgia, unspecified; G89.29 Other chronic pain; D72.829 Elevated white blood cell count, unspecified; I25.10 Atherosclerotic heart disease of native coronary artery without angina pectoris; N40.0 Benign prostatic hyperplasia without lower urinary tract symptoms; E78.5 Hyperlipidemia, unspecified; Z79.899 Other long term (current) drug therapy; Z99.81 Dependence on supplemental oxygen
CPT/HCPCS: 36415; 36600; 71046; 71275; 80048; 80053; 81003; 82375; 82805; 83050; 83735; 83880; 84484; 85025; 85027; 85380; 85610; 85730; 87040; 93005; 94640; 96361; 96365; 96368; 96372; 96375; 96376; 97116; 97162; 97165; 97535; 99285; A9270; G0378; J0456; J0696; J1650; J1885; J1940; J2270; J2930; J7040; Q9967

== ENCOUNTER 2021-12-05 09:26 | Inpatient (IN) | payer MEDICARE, MEDICAID, SELFPAY ==
[2021-12-05] VITALS (11 sets, daily range): BP systolic 102–142; BP diastolic 60–93; PULSE 70–101; RESP 18–20; TEMP 36–37.1; O2SAT 93–99; BMI 32.7
--- NOTE | ~2021-12-05 | NM_ITS ---
EXAMINATION: NM alessandro stress w perfusion DATE: 12/07/2021 11:54 INDICATION: Chest pain TECHNIQUE: Rest images were obtained following intravenous administration of 10.8 mCi Tc99m tetrofosm in (Myoview). The patient was infused intravenously with Lexiscan (Regadenoson). Then, 31.2 mCi Tc99m tetrofosmin (Myoview) was administered intravenously, and stress images were obtained. Data was suyapa nstructed into short axis and horizontal and vertical long axis SPECT images. Gated SPECT images were also obtained. COMPARISON: None. FINDINGS: Small mild fixed perfusion defect at the apical inferior and apical lateral segments equivo ralph for diaphragmatic attenuation artifact versus small infarct. No reversible ischemia. There is no rmal left ventricular chamber size, wall motion and ejection fraction. Left ventricular ejection fra ction measures 64%. IMPRESSION: 1. Small mild fixed perfusion defect Armida for definite metastatic attenuation artifact versus small infarct at the apical inferior and apical lateral segments. No reversible ischemia. 2. Left ventricular ejection fraction measuring 64%. Reviewed, dictated and finalized at location A. EHOLD APPLIANCE ASSEMBLER IMPRESSION: 1. Small mild fixed perfusion defect Armida for definite metastatic attenuation artifact versus small infarct at the apical inferior and apical lateral segment s. No reversible ischemia. 2. Left ventricular ejection fraction measuring 64%.
--- NOTE | ~2021-12-05 | CT_ITS ---
EXAMINATION: CTA chest PE protocol EXAM DATE: 12/06/2021 16:04 INDICATION: Recent surgery, chest pain. TECHNIQUE: Spiral CTA of the chest (pulmonary arteries) was performed with 100 cc Omnipaque 350 intr avenous contrast injection. Images were acquired during the pulmonary arterial phase. Coronal maxi mum intensity projection 3D-reconstructions were created by the technologist on dedicated workstation . Axial, coronal and sagittal reformatted images were reviewed. The dose-length product (DLP) for t his examination was 605.33 mGy-cm. The exposure was tailored according to patient size (auto mA exp osure control), and iterative reconstruction (ASIR) was used as additional dose reduction technique. Comparison is made to prior examination from 10/25/2021. FINDINGS: Pulmonary arteries are well opacified and without intraluminal filling defects. No thora cic aortic dissection. There is dependent subsegmental atelectasis. There is mild emphysema. There m ay be mild pulmonary fibrosis. There are no pleural or pericardial effusions. Tracheobronchial danile e is patent. There is no mediastinal, hilar or axillary lymphadenopathy. There is no pneumothorax . Heart normal in size. There is mild coronary arterial calcification, arterial sclerosis. Hepat ic steatosis. There is been interval healing in previously seen left 6th rib fracture, has subacute a ppearance. There is an acute left 7th rib fracture laterally which was not present on prior study. Th ere is an old right 6th rib fracture laterally. IMPRESSION: 1. Acute left 7th rib fracture anterolaterally. Does this correlate to patient's location of pain? 2. Subacute left 6th rib fracture anteriorly. 3. Mild to moderate emphysema. 4. Dependent subsegmental atelectasis. 5. Possible mild pulmonary fibrosis. 6. No pulmonary emboli. Reviewed, dictated and finalized at location . INER OF CURRENCY IMPRESSION: 1. Acute left 7th rib fracture anterolaterally. Does this correlate to patient 's location of pain? 2. Subacute left 6th rib fracture anteriorly. 3. Mild to moderate emphysema. 4. Dependent subsegmental atelectasis. 5. Possible mild pulmonary fibrosis. 6. No pulmonary emboli.
--- NOTE | ~2021-12-05 | XR_ITS ---
EXAMINATION: XR chest 2V DATE: 12/05/2021 10:10 INDICATION: Chest pain. Hypertension. Coronary artery disease. COPD. TECHNIQUE: frontal and lateral views of the chest were obtained. COMPARISON: Chest radiograph and CT dated 10/25/2021 FINDINGS: Increased lucency in the right upper lung zone consistent with emphysema better appreciated on prior CT. No focal airspace opacities, pulmonary edema, pleural effusion or pneumothorax. The cardiomediast inal silhouette is normal. Mild scattered degenerative skeletal changes. IMPRESSION: 1. Emphysema. No acute cardiopulmonary disease. Reviewed, dictated and finalized at location A. Y ABROAD ADVISOR
--- NOTE | ~2021-12-05 | CT_ITS ---
EXAMINATION: CT brain wo con DATE: 12/06/2021 16:04 INDICATION: Left upper extremity numbness. TECHNIQUE: Computed tomography (CT) of the head was performed without intravenous contrast. The mA wa s adjusted according to patient size. Iterative reconstruction technique was employed. The dose-lengt h product was 605.33 mGy-cm. COMPARISON: Head CT 07/06/2016 FINDINGS: There is no intracranial hemorrhage, acute infarction, or abnormal intracranial mass lesion . The ventricles are normal in size. There is mild mucosal thickening in the paranasal sinuses. There are bilateral mastoid effusions. The orbits are normal. IMPRESSION: 1. Normal brain. Reviewed, dictated and finalized at location A. L OPERATIONS MANAGER IMPRESSION: 1. Normal brain.
--- NOTE | 2021-12-05 09:39 | ECG_ITS ---
Measurements Intervals Burton Rate: 105 P: 69 UT: 164 QRS: 30 QRSD: 94 T: 64 QT: 325 QTc: 430 Interpretive Statements SINUS TACHYCARDIA INCOMPLETE RIGHT BUNDLE BRANCH BLOCK BASELINE ARTIFACT- V4 BORDERLINE ECG Electronically Signed On 12-05-2021 10:05:22 TERRAPIN FISHER by Jonnathan Gamez D.O.
[2021-12-05 10:56] LABS: Basophils Absolute Auto 0.1 K/mm3 (0.0-0.1); Basophils Percent Auto 0.5 % (0.2-1.2); Eosinophils Absolute Auto 0.1 K/mm3 (0-0.3); Eosinophils Percent Auto 0.7 % (0-4.4); Hematocrit 40.1 % (42.0-52.0); Hemoglobin 13.4 g/dL (14.0-18.0); Immature Granulocyte Absolute 0.32 K/mm3 (0.00-0.031); Immature Granulocyte Percent A 2.7 % (0-0.5); Lymphocytes Absolute Auto 1.53 K/mm3 (0.9-3.2); Mean Corpuscular HGB Conc 33.4 g/dl (32-36); Mean Corpuscular Hemoglobin 31.9 pg (26-34); Mean Corpuscular Volume 95.5 fl (80-100); Mean Platelet Volume 9.3 fl (7.4-10.4); Monocytes Absolute Auto 1.1 K/mm3 (0.1-0.6); Monocytes Percent Auto 9.7 % (2.6-8.5); Neutrophils Absolute Auto 8.7 K/mm3 (1.3-6.7); Neutrophils Percent Auto 73.4 % (45.5-73.1); Platelet Count Result 258 k/mm3 (150-375); Red Cell Distribution Width 13.9 % (11.5-14.5); White Blood Count 11.8 K/mm3 (4.5-10.0)
[2021-12-05 11:07] LABS: Alanine Aminotransferase 42 U/L (4-50); Albumin Level 4.5 g/dL (3.5-5.1); Alkaline Phosphatase 123 U/L (38-126); Anion Gap 8 mmol/L (8-16); Aspartate Amino Transferase 36 U/L (17-59); Bilirubin,Total 0.4 mg/dL (0.2-1.3); Blood Urea Nitrogen 16 mg/dL (9-20); Calcium 9.6 mg/dL (8.4-10.2); Carbon Dioxide 25 mmol/L (22-30); Chloride 100 mmol/L (98-107); Estimated CRCL calculation 69 ml/min; Estimated Glomerular Filt Rate > 60; Glucose 128 mg/dL (65-110); Lipase 73 U/L (23-300); Potassium 4.4 mmol/L (3.4-5.0); Sodium 133 mmol/L (137-145)
[2021-12-05 11:13] LABS: INR 0.9; Prothrombin Time 12.5 Seconds (11.1-14.7)
[2021-12-05 11:14] LABS: Partial Thromboplastin Time 26.1 SECONDS (22.3-36.8)
--- NOTE | 2021-12-05 11:18 | ED.GENADULT ---
HPI - General Adult General Chief complaint: Extremity Problem,Nontraumatic Stated complaint: L ARM NUMBNESS Time Seen by Provider: 12/05/21 11:13 Source: patient Limitations: no limitations History of Present Illness HPI narrative: Patient is 66 years old white male presents with numbness of the left upper extremities started 4 PM yesterday, gradually getting better, woke up this morning with excruciating left chest pain. History of hypertension, hyperlipidemia, smoking, obesity. Patient drinks occasionally Patient had 3 doses of COVID-vaccine so far. Patient is telling me that he have chronic intermittent cough. Patient denies any neck pain or recent injury. Patient did not take his medication this morning Related Data Home Medications Medication Instructions Recorded Confirmed Breztri Aerosphere 1 inh INHALATION Q6-8H PRN 08/25/21 10/26/21 allopurinol 100 mg PO DAILY 08/25/21 10/26/21 finasteride 5 mg PO DAILY 08/25/21 10/26/21 gabapentin 300 mg PO TID 08/25/21 10/26/21 lisinopril 10 mg PO DAILY 08/25/21 10/26/21 metoprolol succinate 25 mg PO DAILY 08/25/21 10/26/21 quetiapine 50 mg PO HS 08/25/21 10/26/21 rosuvastatin 10 mg PO DAILY 08/25/21 10/26/21 tamsulosin 0.4 mg PO HS 08/25/21 10/26/21 amlodipine 2.5 mg PO DAILY 10/26/21 10/26/21 bupropion HCl [Wellbutrin XL] 150 mg PO DAILY 10/26/21 10/26/21 celecoxib [Celebrex] 200 mg PO PRN PRN 10/26/21 10/26/21 omeprazole 20 mg PO BID 10/26/21 10/26/21 Allergies Allergy/AdvReac Type Severity Reaction Status Date / Time poison isabelle extract Allergy Mild RASH Verified 10/25/21 20:25 Review of Systems Review of Systems: CONSTITUTIONAL: Denies fever, chills, or sweats. EYES: Denies visual changes, redness, or discharge. ENT: Denies rhinorrhea, congestion, sore throat, or otalgia. CARDIOVASCULAR: Denies chest pain, palpitations, or edema. RESPIRATORY: Denies cough or dyspnea. GASTROINTESTINAL: Denies abdominal pain, nausea, vomiting, or diarrhea. GENITOURINARY: Denies dysuria or hematuria. SKIN: Denies rash or itching. MUSCULOSKELETAL: Denies back pain, joint pain, or myalgia. NEUROLOGIC: Denies headache, numbness, or weakness. PSYCHIATRIC: Denies anxiety or depression. [facility] Past Medical History Medical History (Updated 12/05/21 @ 12:09 by Bradley Hall MD) BPH (benign prostatic hyperplasia) CAD (coronary artery disease) Minimal blockages treated medically Chronic back pain Due to a pinched nerve COPD (chronic obstructive pulmonary disease) Depression Gout Hyperlipidemia Hypertension Surgical History Surgical History H/O cardiac catheterization Minimal blockages. History of kidney surgery Right kidney History of shoulder surgery On the left Family History Family History (Updated 10/26/21 @ 03:15 by Kate Shelton RN) Mother Family history of malignant neoplasm of breast in first degree relative Diabetes mellitus Father Family history of throat cancer Sibling Cancer of back Social History Social History (Updated 10/12/21 @ 11:45 by Nilesh Lawson MD) Social History: The patient is . He does have a significant other. Patient has smoked off and on for about 50 years up to 1.5 packs per day. He resume smoking 2 weeks ago. He drinks 15 alcoholic drinks per month. Denies drug use. The son is the durable power plant general manager for healthcare. The patient is listed as a full code. Smoking packs per day: 1 Smoking cigarettes per day: 20.0 Years smoked: 35 Smoking pack-years: 35.00 Smoking status: Current every day smoker Tobacco type: cigarettes Second hand tobacco smoke exposure: Yes Alcohol intake: current Drinks per week: 6 Substance use: never Substance use type: does not use Spiritual care concerns: No Exam Narrative: General appearance: Well-developed, well-nourished Skin: Normal color Head: Normocephalic, nontraumatic Eyes: Clear conjunctiv
[2021-12-05 11:19] LABS: Troponin I < 0.012 ng/mL (0.000-0.034)
[2021-12-05] MEDS: NITROGLYCERIN OINTMENT 1 INCH DOSE TRANSDERM (12:10)
[2021-12-05] MEDS: METOPROLOL TARTRATE 50 MG TAB 25 MG PO (12:10)
[2021-12-05] MEDS: ASPIRIN 81 MG CHEWABLE TABLET 324 MG PO (12:11)
[2021-12-05 13:25] LABS: Troponin I < 0.012 ng/mL (0.000-0.034)
[2021-12-05] MEDS: ONDANSETRON INJ 4 MG/2 ML VIAL IV PUSH (14:22)
[2021-12-05] MEDS: MORPHINE SULFATE (*CRX) 4 MG/ML INJ IV PUSH (14:27)
--- NOTE | 2021-12-05 15:20 | PM.IMHP ---
H&P: HPI History of Present Illness Date/Time: 12/05/21 15:20 this is a 66-year-old male patient who came to the emergency room for complaints of numbness his left upper extremity that started at 4:00 a.m. yesterday. It gradually got better but he woke up this morning and had some excruciating left chest pain. The patient does have a history of having COPD, opacities, smoking, hypertension and hyperlipidemia. The patient has had 3 doses of COVID vaccine so far. The patient has a chronic intermittent cough. He denies any neck injury or neck pain. However the patient recently had lower back surgery and has been taking Savage for that discomfort. His white count is noted to be 11.8. H&H is 13.4 and 40.1. Troponins ordered x2 are negative. EKG was read as sinus tachycardia with incomplete right bundle-branch block which is comparable to previous EKGs. Chest x-ray was read as emphysema, no acute cardiopulmonary disease. The patient was given aspirin, nitroglycerin, metoprolol, morphine, and Zofran. The patient was also complaining of some nausea and epigastric discomfort. He stated he felt like he had indigestion. The patient is being admitted for observation on the date of service 12/05/2021. Chief Complaint: Chest pain Review of Systems Review of Systems: All systems reviewed & are unremarkable except as noted in HPI and below Constitutional: Constitutional: Reports as per HPI and Reports no additional constitutional complaints Eyes: Eyes: Reports as per HPI and Reports no additional eye complaints ENT: Reports system reviewed and no additional complaints, except as documented and Reports Normal hearing present Cardiovascular: Cardiovascular: Reports no additional cardiovascular complaints Respiratory: Respiratory: Reports no additional respiratory complaints and Reports no additional respiratory complaints Gastrointestinal: Gastrointestinal: Reports as per HPI and Reports no additional gastrointestinal complaints Musculoskeletal: Musculoskeletal: Reports no additional musculoskeletal complaints Integumentary/Breasts: Skin/Breast: Reports system reviewed and no additional complaints, except as docu and Reports as per HPI Neurologic: Reports system reviewed and no additional complaints, except as documented, Reports as per HPI and Reports Normal hearing present Psychiatric: Psychiatric: Reports no additional psychiatric complaints and Reports as per HPI Endocrine: Endocrine: Reports no additional endocrine complaints Hematologic/Lymphatic: Hematologic/Lymphatic: Reports no additional hematologic/lymphatic complaints Allergic/Immunologic: Allergic/Immunologic: Reports no additional allergic/immunologic complaints PMFSH Past Medical History Medical History (Updated 12/05/21 @ 17:02 by Augustina Starkey NP) BPH (benign prostatic hyperplasia) CAD (coronary artery disease) Minimal blockages treated medically Chronic back pain Due to a pinched nerve COPD (chronic obstructive pulmonary disease) Depression Gout Hyperlipidemia Hypertension Surgical History Surgical History (Updated 12/05/21 @ 15:22 by Augustina Starkey NP) H/O cardiac catheterization Minimal blockages. History of back surgery History of kidney surgery Right kidney History of shoulder surgery On the left Family History Family History Mother Family history of malignant neoplasm of breast in first degree relative Diabetes mellitus Father Family history of throat cancer Sibling Cancer of back Social History Social History (Updated 12/05/21 @ 16:46 by Augustina Starkey NP) Social History: The patient is . He does have a significant other. Patient has smoked off and on for about 50 years up to 1.5 packs per day. He resume smoking 2 weeks ago. He drinks 15 alcoholic drinks per month. Denies drug use. The son is the durable power criminal attorney for healthcare. . The patient has 2 child
[2021-12-05] MEDS: BELLADONNA ALK/PHENOB ELIX 10 ML, MAG HYDROX/ALUMINUM HYD/SIMETH 30 ML, LIDOCAINE HCL 2... PO (17:22)
[2021-12-05 17:51] LABS: Troponin I < 0.012 ng/mL (0.000-0.034)
[2021-12-05] MEDS: methylPREDNISolone SOD SUCC 125 MG VIAL 60 MG IV PUSH ×2 (18:27→22:30)
[2021-12-05] MEDS: HYDROcodone/acetaminophen (*CRX) 7.5-325 MG TABLET 1 TAB PO (22:09)
[2021-12-05] MEDS: FAMOTIDINE 20 MG/2 ML VIAL IV PUSH (22:23)
[2021-12-05] MEDS: ENOXAPARIN 40 MG/0.4 ML SYRINGE SUB-Q (22:23)
--- NOTE | 2021-12-05 22:44 | ADMGEN ---
This patient, Renato García, was admitted to IMU Room 203-01 at 1950 on 12/05/2021. Patient/family oriented to hospital policies and general routines including ID bracelet, bed and alarms, visiting hours, pain management, procedures, bathroom and other care routines, personal items, smoking policy, room service/diet, and visiting hours. Information on how to activate the Rapid Response Team has been discussed. Patient/Family are encouraged to report perceived risks to care and to ask questions if they do not understand what they are told or what they should do.
[2021-12-06] VITALS (17 sets, daily range): BP systolic 114–144; BP diastolic 55–79; PULSE 72–97; RESP 16–20; TEMP 36.3–36.6; O2SAT 91–96
[2021-12-06 05:55] LABS: Basophils Percent Auto 0.3 % (0.2-1.2); Hematocrit 40.7 % (42.0-52.0); Hemoglobin 13.5 g/dL (14.0-18.0); Immature Granulocyte Absolute 0.24 K/mm3 (0.00-0.031); Immature Granulocyte Percent A 1.6 % (0-0.5); Lymphocytes Absolute Auto 0.86 K/mm3 (0.9-3.2); Lymphocytes Percent Auto 5.9 % (18.3-44.2); Mean Corpuscular HGB Conc 33.2 g/dl (32-36); Mean Corpuscular Hemoglobin 31.5 pg (26-34); Mean Corpuscular Volume 95.1 fl (80-100); Mean Platelet Volume 9.8 fl (7.4-10.4); Monocytes Absolute Auto 0.1 K/mm3 (0.1-0.6); Monocytes Percent Auto 0.8 % (2.6-8.5); Neutrophils Absolute Auto 13.3 K/mm3 (1.3-6.7); Neutrophils Percent Auto 91.4 % (45.5-73.1); Platelet Count Result 292 k/mm3 (150-375); Red Blood Count 4.28 M/mm3 (4.6-6.20); Red Cell Distribution Width 13.3 % (11.5-14.5); White Blood Count 14.6 K/mm3 (4.5-10.0)
[2021-12-06] MEDS: methylPREDNISolone SOD SUCC 125 MG VIAL 60 MG IV PUSH ×3 (06:02→21:22)
[2021-12-06 06:03] LABS: Lactic Acid Reflex 1.3 mmol/L (0.7-2.1)
[2021-12-06] MEDS: HYDROcodone/acetaminophen (*CRX) 7.5-325 MG TABLET 1 TAB PO ×3 (06:06→21:22)
[2021-12-06 06:07] LABS: Alanine Aminotransferase 50 U/L (4-50); Albumin Level 4.4 g/dL (3.5-5.1); Alkaline Phosphatase 124 U/L (38-126); Anion Gap 11 mmol/L (8-16); Aspartate Amino Transferase 43 U/L (17-59); Bilirubin,Total 0.5 mg/dL (0.2-1.3); Blood Urea Nitrogen 21 mg/dL (9-20); CRP 2.3 mg/dL (<1.0); Calcium 9.3 mg/dL (8.4-10.2); Carbon Dioxide 20 mmol/L (22-30); Chloride 99 mmol/L (98-107); Estimated CRCL calculation 60 ml/min; Estimated Glomerular Filt Rate 55; Glucose 150 mg/dL (65-110); Magnesium 2.2 mg/dL (1.6-2.3); Potassium 5.3 mmol/L (3.4-5.0); Sodium 130 mmol/L (137-145)
[2021-12-06 07:11] LABS: Thyroid Stimulating Hormone Reflex 0.229 uIU/mL (0.465-4.68)
[2021-12-06 07:56] LABS: Free T4 Free Thyroxine Reflex 0.82 ng/dL (0.78-2.19)
[2021-12-06 08:49] LABS: Total Triiodothyronine (T3) 1.13 NG/ML (0.97-1.69)
[2021-12-06] MEDS: GABAPENTIN 300 MG CAPSULE PO ×3 (08:54→18:06)
[2021-12-06] MEDS: FINASTERIDE 5 MG TABLET PO (08:56)
[2021-12-06] MEDS: ROSUVASTATIN 10 MG TABLET PO (08:56)
[2021-12-06] MEDS: FUROSEMIDE 20 MG TABLET PO (08:56)
[2021-12-06] MEDS: lisinopriL 10 MG TABLET PO (08:56)
[2021-12-06] MEDS: PANTOPRAZOLE 40 MG TABLET PO ×2 (08:56→18:06)
[2021-12-06] MEDS: allopurinoL 100 MG TABLET PO (08:56)
[2021-12-06] MEDS: amLODIPine BESYLATE 2.5 MG TABLET PO (08:56)
[2021-12-06] MEDS: METOPROLOL SUCCINATE EXT REL 25 MG TABCR PO (08:57)
[2021-12-06] MEDS: MONTELUKAST SODIUM 10 MG TABLET BY MOUTH (08:57)
[2021-12-06] MEDS: FAMOTIDINE 20 MG TABLET PO ×2 (09:20→20:51)
--- NOTE | 2021-12-06 10:18 | PC.NURSE ---
1000-Pt arrived to floor from IMU. Pt alert, denies pain at rest. When pt coughs, he reports feeling pain in his chest. Call light in reach.
--- NOTE | 2021-12-06 11:19 | PM.CNCAR ---
Assessment and Plan Assessment and plan (1) Chest pain: Qualifiers: Chest pain type: unspecified Qualified Code(s): R07.9 - Chest pain, unspecified Code(s): R07.9 - Chest pain, unspecified Status: Acute Assessment and Plan: Predominantly his chest pain that brought him to the hospital is related to coughing and is musculoskeletal in etiology. I do not think that he is presenting with unstable angina. He does have a chest discomfort though that is a bit more concerning that occurs with exertion. I will start him on aspirin 81 mg p.o. daily. A Lexiscan myocardial perfusion day will be ordered as an outpatient. He has had a cardiac catheterization she states within the past couple of years which showed minimal CAD. It is more likely that his chest pain is musculoskeletal in etiology but it is reasonable to pursue a stress test if 1 has not been performed recently and if his angiogram was over a year ago. Pain medications for his musculoskeletal chest pain will be deferred to the hospitalist (2) Tobacco abuse: Code(s): Z72.0 - Tobacco use Status: Acute Assessment and Plan: Resolved (3) COPD (chronic obstructive pulmonary disease): Code(s): J44.9 - Chronic obstructive pulmonary disease, unspecified Status: Chronic Assessment and Plan: With chronic cough. Will defer to the hospitalist. (4) Hyperlipidemia: Code(s): E78.5 - Hyperlipidemia, unspecified Status: Chronic Assessment and Plan: On statin this will be continued (5) Hypertension: Code(s): I10 - Essential (primary) hypertension Status: Chronic Assessment and Plan: Blood pressure is at reasonable goal. Continue current meds (6) Hypersomnolence: Code(s): G47.10 - Hypersomnia, unspecified Status: Acute Assessment and Plan: He undoubtedly has sleep apnea. He needs an outpatient sleep study. This will be arranged. History of Present Illness History of Present Illness Consult date/time: 12/06/21 11:19 Requesting physician: Bradley Hall MD Consult reason: chest pain Reason For Visit: chest pain Narrative: Reason consultation: Chest pain Date of service 12/06/2021 Requesting provider: Dr. Hall History patient 66-year-old male who had does not have known cardiac history that am aware of. He does have hypertension, hyperlipidemia. He did have a recent lumbar surgery at [facility] within the past couple of weeks. He came to the hospital because some left arm numbness as well as left-sided chest pain. He woke up with left arm numbness which lasted most of the day. It has since resolved. He also had a left-sided chest pain that occurred when coughing. He does have a significant chronic cough. Upon further questioning he does describe a different type of chest pain which she states is like a ?knot? in his will lower chest area. He also describes as a squeeze. He has associated shortness of breath at that time. That discomfort is exertional in nature. It is improved with rest. He has not had any recent syncope, presyncope, paroxysmal nocturnal dyspnea. No palpitations. Does have chronic dyspnea. Review of Systems Review of Systems: All systems reviewed & are unremarkable except as noted in HPI and below Constitutional: Constitutional: Reports weakness Eyes: Eyes: Denies blurry vision ENT: Reports Normal hearing present Cardiovascular: Cardiovascular: Reports chest pain Respiratory: Respiratory: Reports dyspnea Gastrointestinal: Gastrointestinal: Denies abdominal pain Genitourinary: Genitourinary: Denies dysuria Musculoskeletal: Musculoskeletal: Reports neck pain Integumentary/Breasts: Skin/Breast: Reports dry skin Neurologic: Denies headache(s) Psychiatric: Psychiatric: Denies anxiety Endocrine: Endocrine: Denies excessive sweating Hematologic/Lymphatic: Hematologic/Lymphatic: Denies easy bleeding Allergic/I
--- NOTE | 2021-12-06 11:52 | PM.IMPN ---
Progress Note: A&P Assessment and Plan (1) Chest pain: Qualifiers: Chest pain type: unspecified Qualified Code(s): R07.9 - Chest pain, unspecified Code(s): R07.9 - Chest pain, unspecified Status: Acute Assessment and Plan: Patient presents with sharp CP at rest. Troponins are negative x3. CXR showing emphesema but no acute findings. EKG showing iRBBB but no acute ST-T wave changes. Can not rule out a PE and patient had recent procedure so will proceed with CTA chest today. (2) COPD (chronic obstructive pulmonary disease): Code(s): J44.9 - Chronic obstructive pulmonary disease, unspecified Status: Chronic Assessment and Plan: COPD with exacerbation. Patient with wheezing. Continue Solu-Medrol and will add neb treatments. (3) Arm numbness left: Code(s): R20.0 - Anesthesia of skin Status: Acute Assessment and Plan: Symptoms have resolved. No focal weakness and his LE neuropathic symptoms have improved since his back surgery. Will proceed with CT brain to exclude small CVA. (4) Hypertension: Code(s): I10 - Essential (primary) hypertension Status: Chronic Assessment and Plan: Patient's blood pressure was reviewed on 12/06 Blood pressure remains well controlled. Will continue current medications with patient's metoprolol, amlodipine. Hold lisinopril. (5) BPH (benign prostatic hyperplasia): Code(s): N40.0 - Benign prostatic hyperplasia without lower urinary tract symptoms Status: Chronic Assessment and Plan: Stable. Continue with finasteride. (6) Chronic back pain: Code(s): M54.9 - Dorsalgia, unspecified; G89.29 - Other chronic pain Status: Chronic Assessment and Plan: Patient recently had back surgery to lumbar area. Lower extremity neuropathic symptoms have improved. Continue with his Vicodin. Continue with Flexeril and gabapentin. Start PT/OT. Increase activity (7) DVT prophylaxis: Code(s): Z29.9 - Encounter for prophylactic measures, unspecified Status: Acute Assessment and Plan: Lovenox Additional Plan Hyperkalemia - Potassium mildly elevated. Start IV fluids (especially since he'll be receiving contrast). Repeat BMP later today. Consider kayexalate. Hold Lasix and lisniopril. Subjective Date/time seen: 12/06/21 11:52 Interval history: 66yo male with COPD, HTN and chronic back pain here for chest pain. Patient states he awoke with left arm numbness and then chest pain. No trauma. CP was left sided and felt sharp worse with coughing and was pleuritic. Stress test 2 yrs ago was negative. UTD on COVID and flu vaccine. No anosmia or dysgeusia. No pedal edema or calf pain. No hx of VTE. Complains of neck pain and has DDD of the cervical spine. He did have a back surgery earlier this month at [facility], [place]. He quit tobacco prior to his surgery a few weeks ago. Numbness has resolved. Exam Narrative: AF 97.4 144/77 81 16 93% ra Gen - NARD Chest - inspiratory and expiratory wheezes. CV - RRR with distant S1/S2. Tele shownig PVCs and episode of bigeminy. Abd - Soft, obese, NT, +BS Back - lumbar midline healing incision without erythema or drainage Ext - No pedal edema neuro - no focal weakness Psych - Nml mood and affect Skin - Warm and dry Objective Data Vital Signs Vital Signs: Vital Signs - 24 hr 12/05/21 12:10 12/05/21 12:14 12/05/21 14:56 Temperature Pulse Rate 90 101 H 78 Respiratory Rate 18 20 Blood Pressure 131/76 102/78 Pulse Oximetry 96 99 12/05/21 17:24 12/05/21 19:50 12/05/21 20:00 Temperature 96.8 F L Pulse Rate 78 71 70 Respiratory Rate 18 20 Blood Pressure 122/60 137/82 Pulse Oximetry 99 97 12/05/21 21:00 12/05/21 22:00 12/05/21 23:09 Temperature 98.8 F Pulse Rate 79 75 Respiratory Rate 20 Blood Pressure 131/73 Pulse Oximetry 95 93 12/06/21 00:00 12/06/21 02:00 12/06/21 03:34 Temper
[2021-12-06] MEDS: guaiFENesin 12 HR 600 MG TABCR PO ×2 (12:12→20:50)
--- NOTE | 2021-12-06 13:07 | PC.NURSE ---
This patient, Renato García, was transferred to [CP6 ] on 12/06/21 at 1307. Personal belongings sent with patient. Report given to [ ]. Appropriate documentation sent with patient. Patient Transferred with belongings on room air. Vital signs are stable. A7O x 4
--- NOTE | 2021-12-06 15:14 | PC.NURSE ---
PATIENT AMBULATED IN [facility] WITH PT
[2021-12-06] MEDS: ALBUTEROL SULFATE NEB 2.5 MG/0.5 ML INH INHALATION ×2 (15:22→20:05)
[2021-12-06] MEDS: IPRATROPIUM BR 0.02% INH SOLN 0.5 MG/2.5 ML VIAL INHALATION ×2 (15:22→20:06)
[2021-12-06 15:46] LABS: Anion Gap 13 mmol/L (8-16); Blood Urea Nitrogen 24 mg/dL (9-20); Calcium 9.3 mg/dL (8.4-10.2); Carbon Dioxide 23 mmol/L (22-30); Chloride 95 mmol/L (98-107); Estimated CRCL calculation 60 ml/min; Estimated Glomerular Filt Rate 55; Glucose 143 mg/dL (65-110); Potassium 4.6 mmol/L (3.4-5.0); Sodium 131 mmol/L (137-145)
--- NOTE | 2021-12-06 15:51 | PC.NURSE ---
1548-PT TRANSPORTED VIA WHEELCHAIR TO CT SCAN.
[2021-12-06] MEDS: SODIUM CHLORIDE 0.9% IV 1,000 ML 100 ML IV CONT (16:16)
[2021-12-06] MEDS: guaiFENesin/DEXTROMETHORPHAN 10 ML UDC PO (20:50)
[2021-12-06] MEDS: QUEtiapine FUMARATE 25 MG TABLET 50 MG PO (20:50)
[2021-12-06] MEDS: ENOXAPARIN 40 MG/0.4 ML SYRINGE SUB-Q (20:51)
[2021-12-06] MEDS: TAMSULOSIN HCL 0.4 MG CAPSULE PO (20:51)
[2021-12-06] MEDS: CYCLOBENZAPRINE HCL 5 MG TABLET PO (20:51)
[2021-12-07] VITALS (17 sets, daily range): BP systolic 104–142; BP diastolic 58–84; PULSE 61–106; RESP 20–22; TEMP 36–36.8; O2SAT 90–97
--- NOTE | 2021-12-07 02:12 | PCRCNOTE ---
Patient did not receive 0200 breathing treatment due to being on an overnight sleep study.
[2021-12-07] MEDS: methylPREDNISolone SOD SUCC 125 MG VIAL 60 MG IV PUSH (05:59)
[2021-12-07 06:31] LABS: Basophils Absolute Auto 0.1 K/mm3 (0.0-0.1); Basophils Percent Auto 0.2 % (0.2-1.2); Hematocrit 37.5 % (42.0-52.0); Hemoglobin 12.7 g/dL (14.0-18.0); Immature Granulocyte Absolute 0.49 K/mm3 (0.00-0.031); Immature Granulocyte Percent A 1.7 % (0-0.5); Lymphocytes Absolute Auto 1.18 K/mm3 (0.9-3.2); Lymphocytes Percent Auto 4.1 % (18.3-44.2); Mean Corpuscular HGB Conc 33.9 g/dl (32-36); Mean Corpuscular Hemoglobin 31.7 pg (26-34); Mean Corpuscular Volume 93.5 fl (80-100); Mean Platelet Volume 9.5 fl (7.4-10.4); Monocytes Absolute Auto 0.9 K/mm3 (0.1-0.6); Neutrophils Absolute Auto 26.2 K/mm3 (1.3-6.7); Platelet Count Result 289 k/mm3 (150-375); Red Blood Count 4.01 M/mm3 (4.6-6.20); Red Cell Distribution Width 13.4 % (11.5-14.5); White Blood Count 28.8 K/mm3 (4.5-10.0)
[2021-12-07 06:47] LABS: Alanine Aminotransferase 44 U/L (4-50); Albumin Level 4.1 g/dL (3.5-5.1); Alkaline Phosphatase 105 U/L (38-126); Anion Gap 9 mmol/L (8-16); Aspartate Amino Transferase 31 U/L (17-59); Bilirubin,Total 0.3 mg/dL (0.2-1.3); Blood Urea Nitrogen 24 mg/dL (9-20); Calcium 8.9 mg/dL (8.4-10.2); Carbon Dioxide 23 mmol/L (22-30); Chloride 102 mmol/L (98-107); Estimated CRCL calculation 70 ml/min; Estimated Glomerular Filt Rate > 60; Glucose 167 mg/dL (65-110); Magnesium 2.3 mg/dL (1.6-2.3); Phosphorus 4.1 mg/dL (2.5-4.5); Potassium 4.4 mmol/L (3.4-5.0); Sodium 134 mmol/L (137-145)
--- NOTE | 2021-12-07 07:00 | EST_ITS ---
Patient Info Name: Renato García Age: 66 years : 1955 Gender: Male Ht: 70 in Wt: 228 lbs BSA: 2.29 m2 HR: 68 bpm BP: 130 / 66 mmHg Heart Rhythm: Sinus Rhythm Exam Date: 12/07/2021 10:51 AM Exam Location: [facility] Stress Patient Status: Outpatient Admit Date: 12/05/2021 Staff Ordering Physician: Caesar Jeffrey MD Attending Provider: Kaylan Kerns MD Exercise Technologist: Cecille Deng CT Exercise Physician: Gayathri Ruiz Exam Type: CA stress alessandro w NM Study Info Indications R07.9 - Chest pain, unspecified A regadenoson stress test was performed. Summary 1. Please correlate with nuclear medicine images, reported separately. 2. No abnormal ST-T wave changes with lexiscan. Protocol: Lexiscan Stress ECG Details Stage: REST Duration (min): 0 min : 55 sec HR (bpm): 70 SBP (mmHg): 130 DBP (mmHg): 66 Stage: REST Duration (min): 6 min : 13 sec HR (bpm): 68 SBP (mmHg): 130 DBP (mmHg): 66 Stage: STAGE 1 Duration (min): 1 min : 0 sec HR (bpm): 82 SBP (mmHg): 127 DBP (mmHg): 61 Stage: RECOVERY Duration (min): 1 min : 0 sec HR (bpm): 94 SBP (mmHg): 127 DBP (mmHg): 61 Stage: RECOVERY Duration (min): 2 min : 0 sec HR (bpm): 89 SBP (mmHg): 127 DBP (mmHg): 61 Stage: RECOVERY Duration (min): 2 min : 57 sec HR (bpm): 81 SBP (mmHg): 112 DBP (mmHg): 59 Rest HR: 68 bpm Peak HR: 94 bpm Rest Sys BP: 130 mmHg Peak Sys BP: 127 mmHg Max Pred HR: 153 bpm % Max Pred HR: 61 % Target HR: 130 bpm Max RPP: 11,938 bpm*mmHg Target HR Summary: Hemodynamic response to exercise was normal BP Response: Normal blood pressure response Termination Reason: Completed protocol Cardiac Symptoms: None Total Time: 1 min : 0 sec Rest Giron BP: 66 mmHg Peak Giron BP: 61 mmHg Total Dose: 0.4 mg Resting ECG Normal sinus rhythm. pvc. Stress ECG No abnormal ST/T wave changes with exercise. Arrhythmias rare PVC. Report Signatures
[2021-12-07] MEDS: ALBUTEROL SULFATE NEB 2.5 MG/0.5 ML INH INHALATION ×3 (08:00→19:58)
[2021-12-07] MEDS: IPRATROPIUM BR 0.02% INH SOLN 0.5 MG/2.5 ML VIAL INHALATION ×2 (08:00→13:30)
[2021-12-07] MEDS: FINASTERIDE 5 MG TABLET PO (08:33)
[2021-12-07] MEDS: FAMOTIDINE 20 MG TABLET PO ×2 (08:33→19:38)
[2021-12-07] MEDS: lisinopriL 10 MG TABLET PO (08:33)
[2021-12-07] MEDS: amLODIPine BESYLATE 2.5 MG TABLET PO (08:33)
[2021-12-07] MEDS: METOPROLOL SUCCINATE EXT REL 25 MG TABCR PO (08:34)
[2021-12-07] MEDS: ROSUVASTATIN 10 MG TABLET PO (08:34)
[2021-12-07] MEDS: guaiFENesin 12 HR 600 MG TABCR PO ×2 (08:34→19:38)
[2021-12-07] MEDS: FUROSEMIDE 20 MG TABLET PO (08:34)
[2021-12-07] MEDS: PANTOPRAZOLE 40 MG TABLET PO ×2 (08:34→17:18)
[2021-12-07] MEDS: GABAPENTIN 300 MG CAPSULE PO ×3 (08:34→17:18)
[2021-12-07] MEDS: MONTELUKAST SODIUM 10 MG TABLET BY MOUTH (08:35)
[2021-12-07] MEDS: allopurinoL 100 MG TABLET PO (08:35)
--- NOTE | 2021-12-07 09:50 | PC.NURSE ---
Patient to AL for stress test. IV intact.
--- NOTE | 2021-12-07 11:34 | PM.PNCARD ---
Progress Note: A&P Assessment and Plan (1) Chest pain: Qualifiers: Chest pain type: unspecified Qualified Code(s): R07.9 - Chest pain, unspecified Code(s): R07.9 - Chest pain, unspecified Status: Acute Assessment and Plan: Atypical chest pain on presentation, now resolved. He underwent lexiscan stress test today that showed small mild fixed perfusion defect at the apical inferior and apical lateral segments equivocal for diaphragmatic attenuation artifact versus small infarct. No reversible ischemia. Follow up with established drum filler. (2) Tobacco abuse: Code(s): Z72.0 - Tobacco use Status: Acute Assessment and Plan: He quit smoking several years ago. (3) COPD (chronic obstructive pulmonary disease): Code(s): J44.9 - Chronic obstructive pulmonary disease, unspecified Status: Chronic Assessment and Plan: With chronic cough. Will defer to the hospitalist. (4) Hyperlipidemia: Code(s): E78.5 - Hyperlipidemia, unspecified Status: Chronic Assessment and Plan: On statin this will be continued (5) Hypertension: Code(s): I10 - Essential (primary) hypertension Status: Chronic Assessment and Plan: Blood pressure is at reasonable goal. Continue current meds (6) Hypersomnolence: Code(s): G47.10 - Hypersomnia, unspecified Status: Acute Assessment and Plan: Patient to undergo sleep apnea evaluation with OP sleep study Subjective Date/time seen: 12/07/21 11:34 Feeling better today. Denies chest pain, shortness of breath. Review of Systems Review of Systems: All systems reviewed & are unremarkable except as noted in HPI and below Constitutional: Constitutional: Denies excessive sweating, Denies headache(s) and Reports weakness Eyes: Eyes: Denies blurry vision ENT: Reports Normal hearing present, Denies headache(s) and Reports neck pain Cardiovascular: Cardiovascular: Reports chest pain and Reports dyspnea Respiratory: Respiratory: Reports dyspnea Gastrointestinal: Gastrointestinal: Denies abdominal pain Genitourinary: Genitourinary: Denies dysuria Musculoskeletal: Musculoskeletal: Reports neck pain Integumentary/Breasts: Skin/Breast: Reports dry skin Neurologic: Reports Normal hearing present, Denies headache(s) and Reports weakness Psychiatric: Psychiatric: Denies anxiety Endocrine: Endocrine: Denies excessive sweating Hematologic/Lymphatic: Hematologic/Lymphatic: Denies easy bleeding Allergic/Immunologic: Allergic/Immunologic: Denies GI upset with certain foods Exam Const: General: comfortable, no acute distress, alert and awake HENMT: Head: normal to inspection General nose exam: Normal nares present Eyes: Sclera: sclerae normal Neck: Neck: supple and no JVD Resp: Effort & Inspection: normal respiratory effort Auscultation: clear to auscultation bilaterally and diminished lung sounds Cardio: Rate: regular rate Rhythm: regular rhythm GI: Auscultation: normal bowel sounds Skin: General skin exam: normal color and no erythema Neuro: General: patient oriented x3 Cranial nerves: Yes Normal hearing present Cognition (Neuro): normal cognition Speech: normal speech Extrem: General: normal to inspection and no edema Psych: Mental Status: mental status grossly normal Objective Data Vital Signs Vital Signs: Vital Signs - 24 hr 12/06/21 12:18 12/06/21 15:15 12/06/21 15:24 Temperature 36.6 C Pulse Rate 92 93 89 Respiratory Rate 18 19 18 Blood Pressure 131/78 Pulse Oximetry 96 12/06/21 16:24 12/06/21 18:00 12/06/21 20:00 Temperature 36.3 C L Pulse Rate 78 74 93 Respiratory Rate 18 18 20 Blood Pressure 133/76 134/72 Pulse Oximetry 96 92 92 12/06/21 20:06 12/06/21 20:13 12/06/21 21:23 Temperature 36.4 C L Pulse Rate 81 81 93 Respiratory Rate 20 20 Blood Pressure 127/55 L Pulse Oximetry 91 92 12/07/21 00:00
--- NOTE | 2021-12-07 11:45 | PC.NURSE ---
Patient returned to room from stress test.
[2021-12-07 12:44] LABS: Hematocrit 40.6 % (42.0-52.0); Hemoglobin 13.3 g/dL (14.0-18.0); Mean Corpuscular HGB Conc 32.8 g/dl (32-36); Mean Corpuscular Hemoglobin 31.4 pg (26-34); Mean Corpuscular Volume 95.8 fl (80-100); Mean Platelet Volume 9.3 fl (7.4-10.4); Platelet Count Result 301 k/mm3 (150-375); Red Blood Count 4.24 M/mm3 (4.6-6.20); Red Cell Distribution Width 13.8 % (11.5-14.5); White Blood Count 33.8 K/mm3 (4.5-10.0)
[2021-12-07] MEDS: guaiFENesin/DEXTROMETHORPHAN 10 ML UDC PO ×2 (13:24→18:20)
[2021-12-07] MEDS: HYDROcodone/acetaminophen (*CRX) 7.5-325 MG TABLET 1 TAB PO ×2 (13:24→19:37)
--- NOTE | 2021-12-07 13:32 | PM.IMPN ---
Progress Note: A&P Assessment and Plan (1) Chest pain: Qualifiers: Chest pain type: unspecified Qualified Code(s): R07.9 - Chest pain, unspecified Code(s): R07.9 - Chest pain, unspecified Status: Acute Assessment and Plan: Patient presents with sharp CP at rest. Troponins are negative x3. CXR showing emphysema but no acute findings. EKG showing iRBBB but no acute ST-T wave changes. CTA chest negative for PE but does show left 7th acute rib fracture. Lexiscan scan showing no reversible ischemia. Suspect the CP related to rib fractures. (2) Fracture of one rib, left side, initial encounter for closed fracture: Code(s): S22.32XA - Fracture of one rib, left side, initial encounter for closed fracture Status: Acute Assessment and Plan: CT chest 10/25/21 showing left 6th rib fracture. CTA chest yesterday showing acute left 7th rib fracture anterolaterally and now subacute left 6th rib fracture anteriorly. [place] related to coughing. Will need to have evaluation for osteoporosis. (3) COPD (chronic obstructive pulmonary disease): Code(s): J44.9 - Chronic obstructive pulmonary disease, unspecified Status: Chronic Assessment and Plan: COPD with exacerbation. Patient with wheezing but improved with Solu-Medrol. Changed to Prednisone today. WBC up to 33K now. No evidence of bacterial source and suspect leukocytosis related to steroids. CTA chest does show mild to moderate emphysema, dependent subsegmental atelectasis and mild pulmonary fibrosis. Will continue neb treatments. Resume Breztri. Stop all oral steroids and follow WBC. (4) Arm numbness left: Code(s): R20.0 - Anesthesia of skin Status: Acute Assessment and Plan: Symptoms have resolved. No focal weakness and his LE neuropathic symptoms have improved since his back surgery. CT brain showing no acute findings. (5) Hypertension: Code(s): I10 - Essential (primary) hypertension Status: Chronic Assessment and Plan: Patient's blood pressure was reviewed on 12/07 Blood pressure remains well controlled. Will continue current medications with patient's metoprolol, amlodipine and lisinopril. (6) BPH (benign prostatic hyperplasia): Code(s): N40.0 - Benign prostatic hyperplasia without lower urinary tract symptoms Status: Chronic Assessment and Plan: Stable. Continue with finasteride. (7) Chronic back pain: Code(s): M54.9 - Dorsalgia, unspecified; G89.29 - Other chronic pain Status: Chronic Assessment and Plan: Patient recently had back surgery to lumbar area. Lower extremity neuropathic symptoms have improved. Wound healing well. Continue with his Vicodin. Continue with Flexeril and gabapentin. Continue PT/OT. Increase activity (8) Tobacco abuse: Code(s): Z72.0 - Tobacco use Status: Acute Assessment and Plan: Patient stopped smoking early in November. Congratulated in smoking cessation. (9) DVT prophylaxis: Code(s): Z29.9 - Encounter for prophylactic measures, unspecified Status: Acute Assessment and Plan: Lovenox Additional Plan Hyperkalemia - Potassium mildly elevated yesterday. Lasix and lisinopril held. Potassium normal now. Follow. Resume Lasix and Lisnopril. Subjective Date/time seen: 12/07/21 13:32 Interval history: 66yo male with COPD, HTN and chronic back pain here for chest pain. Patient takes Albuterol 2puff BID and Breztri (budesonide/glycopyrrolate/formoterol) 3-4x/day prn. He denies dysuria or hematura. He denies CP. Cough better and is nonproductive. COVID vaccine x3 (booster in September). Requesting discharge Exam Narrative: AF 97.7 142/70 85 20 95% ra Gen - NARD Chest - improved with minimal expir wheezing. CV - RRR with distant S1/S2. Tele showing no significant dysrhythmias. Abd - Soft, obese, NT, +BS Ext - No pedal edema Psych - Nml mood and af
[2021-12-07] MEDS: CYCLOBENZAPRINE HCL 5 MG TABLET PO (18:20)
[2021-12-07] MEDS: QUEtiapine FUMARATE 25 MG TABLET 50 MG PO (19:38)
[2021-12-07] MEDS: TAMSULOSIN HCL 0.4 MG CAPSULE PO (19:38)
[2021-12-07] MEDS: ENOXAPARIN 40 MG/0.4 ML SYRINGE SUB-Q (19:39)
--- NOTE | 2021-12-07 19:41 | PC.NURSE ---
PT DEMANDING EVENING PILLS RIGHT NOW, ATTEMPTED TO EXPLAIN IT WAS TOO EARLY, BECAME UPSET SO MEDS GIVEN
--- NOTE | 2021-12-07 23:32 | PCRCNOTE ---
Apnea link from last night (12/06/21) malfunctioned, therefore requiring another attempt tonight 12/07/21. Pt refused stating he is not receiving meds for his pain so he is leaving and will not be in the hospital long enough to complete the test. Patient is really agitated.
[2021-12-08] VITALS: PULSE 62
[2021-12-08 03:24] VITALS: BP 130/67; PULSE 65; RESP 18; TEMP 36.4; O2SAT 94
[2021-12-08 04:00] VITALS: PULSE 67
[2021-12-08] MEDS: HYDROcodone/acetaminophen (*CRX) 7.5-325 MG TABLET 1 TAB PO (04:56)
[2021-12-08 05:51] LABS: Anion Gap 8 mmol/L (8-16); Blood Urea Nitrogen 31 mg/dL (9-20); CRP 0.9 mg/dL (<1.0); Calcium 8.5 mg/dL (8.4-10.2); Carbon Dioxide 23 mmol/L (22-30); Chloride 102 mmol/L (98-107); Estimated CRCL calculation 65 ml/min; Estimated Glomerular Filt Rate 60; Glucose 121 mg/dL (65-110); Phosphorus 3.7 mg/dL (2.5-4.5); Potassium 3.7 mmol/L (3.4-5.0); Sodium 133 mmol/L (137-145)
[2021-12-08 05:51] LABS: Basophils Absolute Auto 0.1 K/mm3 (0.0-0.1); Basophils Percent Auto 0.2 % (0.2-1.2); Hematocrit 36.5 % (42.0-52.0); Hemoglobin 12.3 g/dL (14.0-18.0); Immature Granulocyte Absolute 0.37 K/mm3 (0.00-0.031); Immature Granulocyte Percent A 1.6 % (0-0.5); Lymphocytes Absolute Auto 1.76 K/mm3 (0.9-3.2); Lymphocytes Percent Auto 7.7 % (18.3-44.2); Mean Corpuscular HGB Conc 33.7 g/dl (32-36); Mean Corpuscular Volume 95.1 fl (80-100); Mean Platelet Volume 9.7 fl (7.4-10.4); Monocytes Absolute Auto 1.4 K/mm3 (0.1-0.6); Neutrophils Absolute Auto 19.3 K/mm3 (1.3-6.7); Neutrophils Percent Auto 84.5 % (45.5-73.1); Platelet Count Result 284 k/mm3 (150-375); Red Blood Count 3.84 M/mm3 (4.6-6.20); Red Cell Distribution Width 13.9 % (11.5-14.5); White Blood Count 22.8 K/mm3 (4.5-10.0)
[2021-12-08 09:01] VITALS: PULSE 73
[2021-12-08] MEDS: GABAPENTIN 300 MG CAPSULE PO (09:01)
[2021-12-08] MEDS: METOPROLOL SUCCINATE EXT REL 25 MG TABCR PO (09:01)
[2021-12-08] MEDS: amLODIPine BESYLATE 2.5 MG TABLET PO (09:01)
[2021-12-08] MEDS: guaiFENesin 12 HR 600 MG TABCR PO (09:01)
[2021-12-08] MEDS: ROSUVASTATIN 10 MG TABLET PO (09:02)
[2021-12-08] MEDS: FINASTERIDE 5 MG TABLET PO (09:02)
[2021-12-08] MEDS: MONTELUKAST SODIUM 10 MG TABLET BY MOUTH (09:02)
[2021-12-08] MEDS: allopurinoL 100 MG TABLET PO (09:02)
[2021-12-08] MEDS: FUROSEMIDE 20 MG TABLET PO (09:02)
[2021-12-08] MEDS: FAMOTIDINE 20 MG TABLET PO (09:02)
[2021-12-08] MEDS: PANTOPRAZOLE 40 MG TABLET PO (09:02)
[2021-12-08] MEDS: lisinopriL 10 MG TABLET PO (09:02)
[2021-12-08] MEDS: ALBUTEROL SULFATE NEB 2.5 MG/0.5 ML INH INHALATION (09:17)
[2021-12-08 09:21] VITALS: PULSE 70; RESP 22
[2021-12-08 09:35] VITALS: PULSE 78; RESP 22
--- NOTE | 2021-12-08 11:52 | PCOTNOTE ---
Attempted to see Patient at this time, Patient refused to participate, seemed angry, stated, I'm Leaving .
--- NOTE | 2021-12-08 12:16 | PM.DS ---
DS: Admitting Diagnosis Discharge Date 12/08/21 Admitting Diagnosis Chest pain DS: Discharge Diagnosis Discharge Diagnosis (1) Chest pain: Qualifiers: Chest pain type: unspecified Qualified Code(s): R07.9 - Chest pain, unspecified Code(s): R07.9 - Chest pain, unspecified Status: Acute Assessment and Plan: Patient presents with sharp CP at rest. Troponin were negative x3. CXR showing emphysema but no acute findings. EKG showing iRBBB but no acute ST-T wave changes. CTA chest negative for PE but does show left 7th acute rib fracture. Lexiscan scan showing no reversible ischemia. Suspect the CP related to rib fractures. (2) Fracture of one rib, left side, initial encounter for closed fracture: Code(s): S22.32XA - Fracture of one rib, left side, initial encounter for closed fracture Status: Acute Assessment and Plan: CT chest 10/25/21 showing left 6th rib fracture. CTA chest yesterday showing acute left 7th rib fracture anterolaterally and now subacute left 6th rib fracture anteriorly. [place] related to coughing. Patient needs an evaluation for osteoporosis. (3) COPD (chronic obstructive pulmonary disease): Code(s): J44.9 - Chronic obstructive pulmonary disease, unspecified Status: Chronic Assessment and Plan: COPD with exacerbation. Patient with wheezing but improved with Solu-Medrol. Changed to Prednisone but not given due to elevated WBC up to 33K. He does have a hx of elevated WBC. No evidence of bacterial source and suspect leukocytosis related to steroids. CTA chest does show mild to moderate emphysema, dependent subsegmental atelectasis and mild pulmonary fibrosis. We continued his inhalers. Plan for him to follow up with excel developer for the persistently elevated WBC. In the morning before patient left AMA, he mentions that he had problems with rice last night and has known dysphagia. He has tried to adjust his diet but still has trouble with dysphagia. He is aware of what he should be doing but does not like the minced/moist diet. We had Speech see him and were having plans to have dietary provide information about appropiate dietary foods but patient decided to sign out against medical advise. (4) Arm numbness left: Code(s): R20.0 - Anesthesia of skin Status: Acute Assessment and Plan: Symptoms resolved. No focal weakness and his LE neuropathic symptoms have improved since his back surgery. CT brain showing no acute findings. (5) Hypertension: Code(s): I10 - Essential (primary) hypertension Status: Chronic Assessment and Plan: Patient's blood pressure was monitored closely. We continued patient's metoprolol, amlodipine and lisinopril. (6) BPH (benign prostatic hyperplasia): Code(s): N40.0 - Benign prostatic hyperplasia without lower urinary tract symptoms Status: Chronic Assessment and Plan: Stable. We continued with finasteride. (7) Chronic back pain: Code(s): M54.9 - Dorsalgia, unspecified; G89.29 - Other chronic pain Status: Chronic Assessment and Plan: Patient recently had back surgery to lumbar area. Lower extremity neuropathic symptoms have improved. Wound healing well. We continued his home medications. He worked with PT/OT (8) Tobacco abuse: Code(s): Z72.0 - Tobacco use Status: Acute Assessment and Plan: Patient stopped smoking early in November. He was congratulated in smoking cessation. DS: Summary Hospital Course Reason for hospitalization: 66yo male with COPD, HTN and chronic back pain here for chest pain. Please see H&P for details Hospital Course: Please see above for details of hospital course Status at Discharge Cognitive/behavioral status at discharge: Stable Time Spent with Patient Time attestation: Total time spent providing and/or coordinating discharge services: 32 minutes Time spent: Jj melendez
--- NOTE | 2021-12-08 12:23 | PCSTNOTE ---
Please refer to the Bedside Swallow Evaluation in the EMR. Please note, silent aspiration cannot be ruled out at bedside.
== END 2021-12-08 09:59 | disposition left against medical advice (07) | DRG 185 ==
LOC: ANHED 12:09 → ANHIMU 15:05 → ANHCPC 12-06 09:54 → ANH2MED 12-06 17:03
PROVIDERS: Nurse Practitioner; Admitting Provider Internal Medicine; Emergency Provider Emergency Medicine; Visit Provider Internal Medicine
DX: S22.42XA Multiple fractures of ribs, left side, initial encounter for closed fracture (principal); J43.9 Emphysema, unspecified; R20.0 Anesthesia of skin; N40.0 Benign prostatic hyperplasia without lower urinary tract symptoms; I10 Essential (primary) hypertension; M54.9 Dorsalgia, unspecified; I25.10 Atherosclerotic heart disease of native coronary artery without angina pectoris; E78.5 Hyperlipidemia, unspecified; F17.210 Nicotine dependence, cigarettes, uncomplicated; E66.9 Obesity, unspecified; Z68.33 Body mass index [BMI] 33.0-33.9, adult; G47.30 Sleep apnea, unspecified; R07.89 Other chest pain
CPT/HCPCS: 36415; 70450; 71046; 71275; 78452; 80048; 80053; 80069; 82728; 83605; 83690; 83735; 84100; 84439; 84443; 84480; 84484; 85025; 85027; 85610; 85730; 86140; 92610; 93005; 93017; 94640; 94762; 96365; 96372; 96374; 96375; 96376; 97161; 97165; 99285; A9270; A9502; G0378; J0131; J1650; J2270; J2405; J2785; J2930; J7030; Q9967

== ENCOUNTER 2021-12-22 13:40 | Observation (INO) | payer MEDICARE, MEDICAID, SELFPAY ==
--- NOTE | ~2021-12-22 | US_ITS ---
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 There is mild right renal caliectasis. There is fatty infiltration of the liver . Left renal echotexture is normal without hydronephrosis, mass or renal stone. Bladder is unremarkab le. Right kidney measures 13.8 cm. Left kidney measures 12.9 cm. Impression: 1: Mild right renal caliectasis. Reviewed, dictated and finalized at location A. ITTEE MEMBER Impression: 1: Mild right renal caliectasis.
--- NOTE | ~2021-12-22 | XR_ITS ---
EXAMINATION: XR chest 2V EXAM DATE: 12/22/2021 17:54 INDICATION: Dizziness, cough, hx copd,htn,smoker. TECHNIQUE: Frontal and lateral projections of the chest obtained and reviewed. Comparison is made to prior examination from 12/05/2021. FINDINGS: The lungs are clear. There are no pleural effusions. The cardiomediastinal silhouette is within normal limits. There is no pneumothorax suspected. The bones and soft tissues are unremarkab le. IMPRESSION: No acute cardiopulmonary findings. Reviewed, dictated and finalized at location G. PRESIDENT
[2021-12-22 14:04] VITALS: BP 95/60; PULSE 113; RESP 20; TEMP 36.9; O2SAT 93
[2021-12-22 14:14] LABS: Glucose Point of Care 189 mg/dl (65-105)
[2021-12-22 16:08] VITALS: BP 122/64; PULSE 96; O2SAT 92
--- NOTE | 2021-12-22 16:55 | ECG_ITS ---
Measurements Intervals Walsh Rate: 101 P: 72 WA: 160 QRS: 30 QRSD: 96 T: 68 QT: 324 QTc: 420 Interpretive Statements SINUS TACHYCARDIA INCOMPLETE RIGHT BUNDLE BRANCH BLOCK BORDERLINE ECG Electronically Signed On 12-22-2021 21:00:50 COLOR WEIGHER by Jonnathan Gamez D.O.
[2021-12-22 16:57] VITALS: BP 97/69; PULSE 98
[2021-12-22 16:58] VITALS: BP 77/63; PULSE 111
[2021-12-22 17:16] LABS: Basophils Absolute Auto 0.1 K/mm3 (0.0-0.1); Basophils Percent Auto 0.5 % (0.2-1.2); Eosinophils Absolute Auto 0.2 K/mm3 (0-0.3); Eosinophils Percent Auto 1.1 % (0-4.4); Hemoglobin 13.7 g/dL (14.0-18.0); Immature Granulocyte Absolute 0.16 K/mm3 (0.00-0.031); Immature Granulocyte Percent A 1.1 % (0-0.5); Lymphocytes Absolute Auto 1.56 K/mm3 (0.9-3.2); Lymphocytes Percent Auto 10.6 % (18.3-44.2); Mean Corpuscular HGB Conc 32.6 g/dl (32-36); Mean Corpuscular Hemoglobin 31.9 pg (26-34); Mean Corpuscular Volume 97.9 fl (80-100); Mean Platelet Volume 9.8 fl (7.4-10.4); Monocytes Absolute Auto 1.3 K/mm3 (0.1-0.6); Monocytes Percent Auto 8.7 % (2.6-8.5); Neutrophils Absolute Auto 11.5 K/mm3 (1.3-6.7); Platelet Count Result 294 k/mm3 (150-375); Red Blood Count 4.29 M/mm3 (4.6-6.20); Red Cell Distribution Width 13.9 % (11.5-14.5); White Blood Count 14.8 K/mm3 (4.5-10.0)
[2021-12-22 18:12] LABS: Troponin I < 0.012 ng/mL (0.000-0.034)
[2021-12-22] MEDS: SODIUM CHLORIDE 0.9% IV 500 ML 999 ML IV CONT (18:26)
[2021-12-22 19:48] LABS: Alanine Aminotransferase 31 U/L (4-50); Alkaline Phosphatase 118 U/L (38-126); Anion Gap 8 mmol/L (8-16); Aspartate Amino Transferase 35 U/L (17-59); Bilirubin,Total 0.8 mg/dL (0.2-1.3); Blood Urea Nitrogen 21 mg/dL (9-20); Calcium 9.3 mg/dL (8.4-10.2); Carbon Dioxide 17 mmol/L (22-30); Chloride 104 mmol/L (98-107); Estimated CRCL calculation 26 ml/min; Estimated Glomerular Filt Rate 21; Glucose 140 mg/dL (65-110); Potassium 4.4 mmol/L (3.4-5.0); Sodium 129 mmol/L (137-145)
--- NOTE | 2021-12-22 20:06 | PM.IMHP ---
H&P: HPI History of Present Illness Date/Time: 12/22/21 20:06 Chief Complaint: Dizziness. Narrative: This is a 66-year-old male with past medical history significant for metabolic syndrome, hypertension, dyslipidemia, benign prostatic hyperplasia, coronary artery disease, chronic obstructive pulmonary disease, depression, gout. Patient was recently discharged after he was worked up for chest pain. Patient presents to the emergency room due to dizziness mainly upon standing patient felt that he was unsteady on his gait, had near syncopal episode. Patient denies any nausea, vomiting ,diarrhea ,abdominal pain, chest pain, palpitations, cough ,sputum production, fevers, rigors or chills, no calves pain, no leg swelling, no ankle swelling, no change in vision, no headaches. Patient had been discharged on Lasix and states that he has been drinking sodas to stay hydrated Preliminary workup was significant for creatinine of 3 BUN of 21, sodium 129 WBC 38421. Patient was also noted to have a blood pressure of 77/62 upon standing. Patient is been admitted for further evaluation management and treatment. Review of Systems Review of Systems: Dizziness, unsteady gait, near-syncope. Constitutional: Constitutional: Denies chills, Denies fatigue, Denies fever(s) and Denies malaise Eyes: Eyes: Denies change in vision ENT: Denies dysphagia, Denies vertigo, Reports dizziness, Denies headache(s), Denies nasal congestion, Denies nasal discharge, Denies nasal obstruction and Denies odynophagia Cardiovascular: Cardiovascular: Denies chest pain with activity, Denies syncope, Denies rapid heart rate, Denies pedal edema, Denies edema, Denies irregular heart rhythm, Denies claudication, Denies leg edema, Reports lightheadedness, Denies radiating jaw, neck or arm pain, Denies palpitations, Denies dyspnea on exertion and Denies orthopnea Respiratory: Respiratory: Denies change in phlegm color, Denies cough, Denies excessive phlegm production, Denies dyspnea and Denies wheezing Gastrointestinal: Gastrointestinal: Denies abdominal pain, Denies dyspepsia, Denies heartburn, Denies nausea and Denies vomiting Genitourinary: Genitourinary: Denies dysuria and Denies flank pain Musculoskeletal: Musculoskeletal: Denies back pain, Denies arthralgias and Denies joint swelling Integumentary/Breasts: Skin/Breast: Denies rash Neurologic: Denies abnormal gait, Denies syncope, Denies focal weakness, Denies radicular pain and Denies Sensory deficit (Neuro) Psychiatric: Psychiatric: Reports no additional psychiatric complaints and Reports as per HPI Endocrine: Endocrine: Denies change in body appearance, Denies excessive sweating, Denies polyphagia, Denies polydipsia, Denies polyuria and Denies palpitations Hematologic/Lymphatic: Hematologic/Lymphatic: Reports no additional hematologic/lymphatic complaints and Reports as per HPI Allergic/Immunologic: Allergic/Immunologic: Reports no additional allergic/immunologic complaints and Reports as per HPI PMFSH Past Medical History Medical History BPH (benign prostatic hyperplasia) CAD (coronary artery disease) Minimal blockages treated medically Chronic back pain Due to a pinched nerve COPD (chronic obstructive pulmonary disease) Depression Gout Hyperlipidemia Hypertension Surgical History Surgical History H/O cardiac catheterization Minimal blockages. History of back surgery History of kidney surgery Right kidney History of shoulder surgery On the left Family History Family History Mother Family history of malignant neoplasm of breast in first degree relative Diabetes mellitus Father Family history of throat cancer Sibling Cancer of back Social History Social History Social History: [facility]
--- NOTE | 2021-12-22 20:20 | ED.DIZZY ---
HPI - Dizziness General Chief Complaint: Dizziness Stated Complaint: weakness, dizzy Time Seen by Provider: 12/22/21 17:26 Source: patient History of Present Illness HPI Narrative: Patient presents with disease most noted over the past several days he notes that when he gets up and walks around also when he bends over. Ports today felt like he was going to pass out and some Jell-O and improved however given the recurrence of his symptoms he wanted come to the ER for evaluation. Denies associated shortness of breath or chest pain he does report a recent admission for chest pain and was discharged home on Lasix. Reports he has been taking his medication and been peeing a lot has been attempting to use sodas to rehydrate himself. Denies any fevers, nausea, vomiting, diarrhea Related Data Home Medications Medication Instructions Recorded Confirmed allopurinol 100 mg PO DAILY 08/25/21 12/05/21 finasteride 5 mg PO DAILY 08/25/21 12/05/21 gabapentin 300 mg PO TID 08/25/21 12/05/21 lisinopril 10 mg PO DAILY 08/25/21 12/05/21 metoprolol succinate 25 mg PO DAILY 08/25/21 12/05/21 quetiapine 50 mg PO HS 08/25/21 12/06/21 rosuvastatin 10 mg PO DAILY 08/25/21 12/06/21 tamsulosin 0.4 mg PO HS 08/25/21 12/06/21 amlodipine 2.5 mg PO DAILY 10/26/21 12/05/21 omeprazole 20 mg PO BID 10/26/21 12/05/21 albuterol sulfate 2.5 mg INHALATION Q4H PRN 12/05/21 12/05/21 montelukast 10 mg DAILY 12/05/21 12/05/21 oxycodone-acetaminophen 5 - 325 tablet Q6H PRN 12/05/21 12/06/21 Allergies Allergy/AdvReac Type Severity Reaction Status Date / Time poison isabelle extract Allergy Mild RASH Verified 10/25/21 20:25 Review of Systems Review of Systems: CONSTITUTIONAL: Denies fever, chills, or sweats. EYES: Denies visual changes, redness, or discharge. ENT: Denies rhinorrhea, congestion, sore throat, or otalgia. CARDIOVASCULAR: Denies chest pain, palpitations, or edema. RESPIRATORY: Denies cough or dyspnea. GASTROINTESTINAL: Denies abdominal pain, nausea, vomiting, or diarrhea. GENITOURINARY: Denies dysuria or hematuria. SKIN: Denies rash or itching. MUSCULOSKELETAL: Denies back pain, joint pain, or myalgia. NEUROLOGIC: Denies headache, numbness, or weakness. PSYCHIATRIC: Denies anxiety or depression. All systems reviewed & are unremarkable except as noted in HPI and below PMFSH Past Medical History Medical History BPH (benign prostatic hyperplasia) CAD (coronary artery disease) Minimal blockages treated medically Chronic back pain Due to a pinched nerve COPD (chronic obstructive pulmonary disease) Depression Gout Hyperlipidemia Hypertension Surgical History Surgical History H/O cardiac catheterization Minimal blockages. History of back surgery History of kidney surgery Right kidney History of shoulder surgery On the left Family History Family History Mother Family history of malignant neoplasm of breast in first degree relative Diabetes mellitus Father Family history of throat cancer Sibling Cancer of back Social History Social History Social History: The patient is . He does have a significant other. Patient has smoked off and on for about 50 years up to 1.5 packs per day. He resume smoking 2 weeks ago. He drinks 15 alcoholic drinks per month. Denies drug use. The son is the durable power defense attorney for healthcare. . The patient has 2 children. Code status full code Smoking packs per day: 1.5 Smoking cigarettes per day: 30.0 Years smoked: 20 Smoking pack-years: 30.00 Smoking status: Former smoker Tobacco type: cigarettes Second hand tobacco smoke exposure: Yes Alcohol intake: current Drinks per week: 4 Substance use: never Substance use type: does not use Spiritual care concerns:
--- NOTE | 2021-12-22 20:26 | PC.NURSE ---
IV access reestablished and IVF continued. Per ERP Gianluca give 1 liter of NS.
[2021-12-22] MEDS: SODIUM CHLORIDE 0.9% IV 1,000 ML 999 ML IV CONT ×2 (22:00)
[2021-12-23] VITALS (20 sets, daily range): BP systolic 110–130; BP diastolic 55–79; PULSE 72–94; RESP 18–24; TEMP 36.3–36.9; O2SAT 92–100
[2021-12-23] MEDS: SODIUM CHLORIDE 0.9% IV 1,000 ML 150 ML IV CONT ×3 (00:58→23:46)
[2021-12-23 03:03] LABS: SARS-CoV-2 RNA PCR Negative
[2021-12-23] MEDS: ALBUTEROL SULFATE NEB 2.5 MG/0.5 ML INH INHALATION ×5 (04:15→21:20)
[2021-12-23] MEDS: IPRATROPIUM BR 0.02% INH SOLN 0.5 MG/2.5 ML VIAL INHALATION ×5 (04:15→21:20)
--- NOTE | 2021-12-23 04:39 | PC.NURSE ---
This patient, Renato García, was admitted to Medical Room 341-01. Patient/family oriented to hospital policies and general routines including ID bracelet, bed and alarms, visiting hours, pain management, procedures, bathroom and other care routines, personal items, smoking policy, room service/diet, and visiting hours. Information on how to activate the Rapid Response Team has been discussed. Patient/Family are encouraged to report perceived risks to care and to ask questions if they do not understand what they are told or what they should do. Pt short of breath with audible wheezing called and received orders for nebulizer treatments.
[2021-12-23 06:05] LABS: Anion Gap 5 mmol/L (8-16); Blood Urea Nitrogen 22 mg/dL (9-20); Calcium 8.7 mg/dL (8.4-10.2); Carbon Dioxide 22 mmol/L (22-30); Chloride 108 mmol/L (98-107); Estimated CRCL calculation 36 ml/min; Estimated Glomerular Filt Rate 30; Glucose 102 mg/dL (65-110); Potassium 4.3 mmol/L (3.4-5.0); Sodium 135 mmol/L (137-145)
[2021-12-23] MEDS: methylPREDNISolone SOD SUCC 125 MG VIAL 60 MG IV PUSH ×4 (06:12→23:44)
[2021-12-23 07:58] LABS: Glucose Point of Care 119 mg/dl (65-105)
--- NOTE | 2021-12-23 09:05 | PM.IMPN ---
Progress Note: A&P Assessment and Plan (1) Orthostatic hypotension: Code(s): I95.1 - Orthostatic hypotension Status: Acute Assessment and Plan: Likely secondary to Lasix. hold lasix. also on acei. IV fluids Continue to monitor Supportive care Will check CK level and urinalysis (2) Severe dehydration: Code(s): E86.0 - Dehydration Status: Acute Assessment and Plan: Likely secondary to diuretics Receiving IV fluids Push orals as well (3) VICTORIA (acute kidney injury): Code(s): N17.9 - Acute kidney failure, unspecified Status: Acute Assessment and Plan: baseline cr 1.2. admission cr . Likely to be pre renal azotemia Renal ultrasound done pending report Holding loop diuretic renal function impoved today. (4) Tobacco abuse: Code(s): Z72.0 - Tobacco use Status: Acute Assessment and Plan: Nicotine patch as needed (5) COPD (chronic obstructive pulmonary disease): Code(s): J44.9 - Chronic obstructive pulmonary disease, unspecified Status: Chronic Assessment and Plan: Chronic cough and chronic wheezing resume his home medications Albuterol and Atrovent inhaler every 6 hours No changes in sputum quality Steroid has been added (6) Hyperlipidemia: Code(s): E78.5 - Hyperlipidemia, unspecified Status: Chronic Assessment and Plan: Continue statin (7) Hypertension: Code(s): I10 - Essential (primary) hypertension Status: Chronic Assessment and Plan: Holding antihypertensive due to patient's orthostatics (8) Chronic back pain: Code(s): M54.9 - Dorsalgia, unspecified; G89.29 - Other chronic pain Status: Chronic Assessment and Plan: Tylenol as needed recet 6th and 7th rib fracture (9) BPH (benign prostatic hyperplasia): Code(s): N40.0 - Benign prostatic hyperplasia without lower urinary tract symptoms Status: Chronic Assessment and Plan: Continue Flomax (10) Hyponatremia with extracellular fluid depletion: Code(s): E87.1 - Hypo-osmolality and hyponatremia Status: Acute Assessment and Plan: Likely secondary to the use of diuretics Receiving 0.9 NS Isotonic impoved today. Subjective Date/time seen: 12/23/21 09:05 Interval history: HPI: This is a 66-year-old male with past medical history significant for metabolic syndrome, hypertension, dyslipidemia, benign prostatic hyperplasia, coronary artery disease, chronic obstructive pulmonary disease, depression, gout. Patient was recently discharged after he was worked up for chest pain. Patient presents to the emergency room due to dizziness mainly upon standing patient felt that he was unsteady on his gait, had near syncopal episode. Patient denies any nausea, vomiting ,diarrhea ,abdominal pain, chest pain, palpitations, cough ,sputum production, fevers, rigors or chills, no calves pain, no leg swelling, no ankle swelling, no change in vision, no headaches. Patient had been discharged on Lasix and states that he has been drinking sodas to stay hydrated Preliminary workup was significant for creatinine of 3 BUN of 21, sodium 129 WBC [id number]. Patient was also noted to have a blood pressure of 77/62 upon standing. Patient is been admitted for further evaluation management and treatment. 12/23/2021 feeling well. Ambulating in the room without dizziness. Peeing okay denies any shortness of breath or chest pain. He does have underlying COPD with chronic shortness of breath which is unchanged Review of Systems Review of Systems: All systems reviewed & are unremarkable except as noted in HPI and below (HPI) Exam Narrative: GENERAL: The patient with obesity, not in acute distress HEENT: Nonicteric sclerae, PERRLA, EOMI. Oropharynx clear. Moist mucous membranes. Conjunctivae appear well perfused. CHEST: Chest wall is nontender. HEART: Regular rate and rhythm without murmur, rubs, or gallops LUNGS: Coa
[2021-12-23 10:12] LABS: Creatine Kinase 108 U/L (55-170)
[2021-12-23] MEDS: MONTELUKAST SODIUM 10 MG TABLET PO (10:50)
[2021-12-23] MEDS: ROSUVASTATIN 10 MG TABLET PO (10:50)
[2021-12-23] MEDS: FINASTERIDE 5 MG TABLET PO (10:50)
[2021-12-23] MEDS: buPROPion HCL SR (12HR) 100 MG TABCR PO (10:51)
[2021-12-23] MEDS: allopurinoL 100 MG TABLET PO (10:51)
[2021-12-23] MEDS: buPROPion HCL SR (12 HR) 150 MG TAB PO (10:51)
[2021-12-23 18:10] LABS: Glucose Point of Care 284 mg/dl (65-105)
[2021-12-23] MEDS: guaiFENesin/DEXTROMETHORPHAN 10 ML UDC 5 ML PO (18:32)
[2021-12-23] MEDS: PANTOPRAZOLE 40 MG TABLET PO (20:25)
[2021-12-23] MEDS: TAMSULOSIN HCL 0.4 MG CAPSULE PO (20:25)
[2021-12-23] MEDS: QUEtiapine FUMARATE 25 MG TABLET 50 MG PO (20:25)
[2021-12-23 22:10] LABS: Glucose Point of Care 188 mg/dl (65-105)
[2021-12-24] MEDS: methylPREDNISolone SOD SUCC 125 MG VIAL 60 MG IV PUSH ×2 (05:50→12:02)
[2021-12-24 06:00] VITALS: BP 131/71; PULSE 83; RESP 20; TEMP 36.1; O2SAT 93
[2021-12-24 06:07] LABS: Basophils Percent Auto 0.1 % (0.2-1.2); Hematocrit 34.6 % (42.0-52.0); Hemoglobin 11.6 g/dL (14.0-18.0); Immature Granulocyte Absolute 0.09 K/mm3 (0.00-0.031); Immature Granulocyte Percent A 0.6 % (0-0.5); Lymphocytes Absolute Auto 0.71 K/mm3 (0.9-3.2); Lymphocytes Percent Auto 4.8 % (18.3-44.2); Mean Corpuscular HGB Conc 33.5 g/dl (32-36); Mean Corpuscular Volume 95.3 fl (80-100); Mean Platelet Volume 9.9 fl (7.4-10.4); Monocytes Absolute Auto 0.3 K/mm3 (0.1-0.6); Monocytes Percent Auto 1.8 % (2.6-8.5); Neutrophils Absolute Auto 13.6 K/mm3 (1.3-6.7); Neutrophils Percent Auto 92.7 % (45.5-73.1); Platelet Count Result 233 k/mm3 (150-375); Red Blood Count 3.63 M/mm3 (4.6-6.20); Red Cell Distribution Width 13.5 % (11.5-14.5); White Blood Count 14.7 K/mm3 (4.5-10.0)
[2021-12-24 06:59] LABS: Glucose Point of Care 185 mg/dl (65-105)
[2021-12-24 07:21] LABS: Alanine Aminotransferase 29 U/L (4-50); Albumin Level 3.8 g/dL (3.5-5.1); Alkaline Phosphatase 107 U/L (38-126); Anion Gap 4 mmol/L (8-16); Aspartate Amino Transferase 28 U/L (17-59); Bilirubin,Total 0.3 mg/dL (0.2-1.3); Blood Urea Nitrogen 14 mg/dL (9-20); Calcium 8.9 mg/dL (8.4-10.2); Carbon Dioxide 22 mmol/L (22-30); Chloride 108 mmol/L (98-107); Estimated CRCL calculation 76 ml/min; Estimated Glomerular Filt Rate > 60; Glucose 184 mg/dL (65-110); Potassium 4.3 mmol/L (3.4-5.0); Sodium 134 mmol/L (137-145)
[2021-12-24] MEDS: IPRATROPIUM BR 0.02% INH SOLN 0.5 MG/2.5 ML VIAL INHALATION ×2 (08:23→11:20)
[2021-12-24] MEDS: ALBUTEROL SULFATE NEB 2.5 MG/0.5 ML INH INHALATION ×2 (08:23→11:20)
[2021-12-24 08:24] VITALS: PULSE 98; RESP 24; O2SAT 90
[2021-12-24 08:35] VITALS: PULSE 92; RESP 22
[2021-12-24] MEDS: buPROPion HCL SR (12HR) 100 MG TABCR PO (09:04)
[2021-12-24] MEDS: allopurinoL 100 MG TABLET PO (09:04)
[2021-12-24] MEDS: FINASTERIDE 5 MG TABLET PO (09:04)
[2021-12-24] MEDS: PANTOPRAZOLE 40 MG TABLET PO (09:04)
[2021-12-24] MEDS: buPROPion HCL SR (12 HR) 150 MG TAB PO (09:04)
[2021-12-24] MEDS: ROSUVASTATIN 10 MG TABLET PO (09:04)
[2021-12-24] MEDS: MONTELUKAST SODIUM 10 MG TABLET PO (09:04)
[2021-12-24 11:21] VITALS: PULSE 92; RESP 18
[2021-12-24 11:31] VITALS: PULSE 94; RESP 18
[2021-12-24 12:01] LABS: Glucose Point of Care 160 mg/dl (65-105)
[2021-12-24] MEDS: SODIUM CHLORIDE 0.9% IV 1,000 ML 75 ML IV CONT (12:02)
[2021-12-24] MEDS: guaiFENesin/DEXTROMETHORPHAN 10 ML UDC 5 ML PO (13:14)
--- NOTE | 2021-12-24 13:41 | PM.DS ---
DS: Admitting Diagnosis Discharge Date 12/24/2021 Admitting Diagnosis weakness and dizziness DS: Discharge Diagnosis Discharge Diagnosis (1) Orthostatic hypotension: Code(s): I95.1 - Orthostatic hypotension Status: Acute Assessment and Plan: Likely secondary to Lasix and BLAKE inhibitor. these were held on admission IV fluids was instituted and renal function monitored Continue to monitor Supportive care CK level came back normal Orthostatic hypotension resolved with hydration (2) Severe dehydration: Code(s): E86.0 - Dehydration Status: Acute Assessment and Plan: Likely secondary to diuretics Receiving IV fluids Push orals as well (3) VICTORIA (acute kidney injury): Code(s): N17.9 - Acute kidney failure, unspecified Status: Acute Assessment and Plan: baseline cr 1.2. admission cr . Likely to be pre renal azotemia Renal ultrasound done and reviewed Holding loop diuretic and BLAKE inhibitor renal function impoved back to normal the time of discharge Hold Lasix lisinopril at discharge (4) Tobacco abuse: Code(s): Z72.0 - Tobacco use Status: Acute Assessment and Plan: Nicotine patch as needed (5) COPD (chronic obstructive pulmonary disease): Code(s): J44.9 - Chronic obstructive pulmonary disease, unspecified Status: Chronic Assessment and Plan: Chronic cough and chronic wheezing resume his home medications Albuterol and Atrovent inhaler every 6 hours No changes in sputum quality Steroid has been added Will do steroid taper at discharge Follow-up with Dr. Tavares as scheduled outpatient basis (6) Hyperlipidemia: Code(s): E78.5 - Hyperlipidemia, unspecified Status: Chronic Assessment and Plan: Continue statin (7) Hypertension: Code(s): I10 - Essential (primary) hypertension Status: Chronic Assessment and Plan: Holding antihypertensive due to patient's orthostatics (8) Chronic back pain: Code(s): M54.9 - Dorsalgia, unspecified; G89.29 - Other chronic pain Status: Chronic Assessment and Plan: Tylenol as needed recet 6th and 7th rib fracture Need DEXA scan as an outpatient for evaluation of osteoporosis (9) BPH (benign prostatic hyperplasia): Code(s): N40.0 - Benign prostatic hyperplasia without lower urinary tract symptoms Status: Chronic Assessment and Plan: Continue Flomax (10) Hyponatremia with extracellular fluid depletion: Code(s): E87.1 - Hypo-osmolality and hyponatremia Status: Acute Assessment and Plan: Likely secondary to the use of diuretics Receiving 0.9 NS Isotonic impoved DS: Summary Hospital Course Hospital Course: See above Time Spent with Patient Time attestation: Total time spent providing and/or coordinating discharge services: 45 minutes Exam Narrative: GENERAL: The patient with obesity, not in acute distress HEENT: Nonicteric sclerae, PERRLA, EOMI. Oropharynx clear. Moist mucous membranes. Conjunctivae appear well perfused. CHEST: Chest wall is nontender. HEART: Regular rate and rhythm without murmur, rubs, or gallops LUNGS: Coarse breath sound bilaterally with no wheezes or crackles, no respiratory distress ABDOMEN: Soft, positive bowel sounds, protuberant abdomen, non-tender, no organomegaly. SKIN: No rash, no excessive bruising, petechiae, or purpura. NEUROLOGIC: Cranial nerves II-XII intact, alert and oriented x 3, no gross motor deficits EXTREMITIES: no edema, cyanosis or clubbing DS: Data Data Completed and Pending Labs on day of discharge: Labs from last 24 hours 12/24/21 12/24/21 12/24/21 11:56 06:56 05:14 WBC RBC Hgb Hct MCV MCH MCHC RDW Plt Count MPV Immature Gran % (Auto) Neut % (Auto) Lymph % (Auto) [place] % (Auto) Eos % (Auto) Baso % (Auto) Lymph # (Auto) [place] # (Auto) Eos # (Auto) Baso # (Auto) Abs I
[2021-12-24 14:00] VITALS: BP 148/55; PULSE 100; RESP 20; O2SAT 95
== END 2021-12-24 15:30 | disposition home or self-care (01) ==
LOC: ANHED 20:26 → ANH3MED 12-23 04:50
PROVIDERS: Emergency Medicine; Admitting Provider Internal Medicine; Emergency Provider Emergency Medicine; PCP Internal Medicine; Visit Provider Internal Medicine
DX: I95.1 Orthostatic hypotension (principal); E86.0 Dehydration; N17.9 Acute kidney failure, unspecified; E87.1 Hypo-osmolality and hyponatremia; E78.5 Hyperlipidemia, unspecified; E66.9 Obesity, unspecified; F32.A Depression, unspecified; I10 Essential (primary) hypertension; N40.0 Benign prostatic hyperplasia without lower urinary tract symptoms; I25.10 Atherosclerotic heart disease of native coronary artery without angina pectoris; J44.9 Chronic obstructive pulmonary disease, unspecified; M10.9 Gout, unspecified; M54.9 Dorsalgia, unspecified; G89.29 Other chronic pain; R42 Dizziness and giddiness; Z20.822 Contact with and (suspected) exposure to COVID-19; Z87.891 Personal history of nicotine dependence; Z68.32 Body mass index [BMI] 32.0-32.9, adult
CPT/HCPCS: 36415; 71046; 76775; 80048; 80053; 82550; 82948; 84484; 85025; 93005; 94640; 96361; 96374; 96376; 99285; A9270; C9803; G0378; J2930; J7030; J7040; U0003; U0005

== ENCOUNTER 2022-01-03 15:46 | Emergency (ER) | payer MEDICARE, MEDICAID, SELFPAY ==
--- NOTE | ~2022-01-03 | XR_ITS ---
EXAMINATION: XR chest 1V portable INDICATION: Shortness of breath and cough TECHNIQUE: Portable AP chest at 1710 hours COMPARISON: 12/22/2021 FINDINGS: The lungs are free of acute opacities. There is no pleural effusion or pneumothorax. The ca rdiomediastinal silhouette is normal. IMPRESSION: 1. No acute cardiopulmonary abnormality. Reviewed, dictated and finalized at location A. NESS EDUCATOR
--- NOTE | ~2022-01-03 | CT_ITS ---
EXAMINATION: CT brain wo con DATE: 01/03/2022 17:41 INDICATION: Headache, dizziness and blurred vision. TECHNIQUE: Computed tomography (CT) of the head was performed without intravenous contrast. Sagittal and coronal reconstructions were performed. The mA was adjusted according to patient size. Iterative reconstruction technique was employed. The dose-length product was 605.33 mGy-cm. COMPARISON: head CT dated 12/06/2021 FINDINGS: No acute intracranial hemorrhage, acute infarction or abnormal extra axial fluid collection. Ventricl es are normal and symmetric. No mass/mass effect. Unchanged small bilateral mastoid effusions. The or bits and paranasal sinuses are normal. IMPRESSION: 1. Normal brain. No acute intracranial process. Reviewed, dictated and finalized at location A. WARE SPECIALIST
[2022-01-03 15:48] VITALS: BP 133/76; PULSE 98; RESP 19; TEMP 37.1; O2SAT 94
--- NOTE | 2022-01-03 16:10 | ECG_ITS ---
Measurements Intervals [place] Rate: 91 P: 71 WI: 163 QRS: 27 QRSD: 94 T: 70 QT: 351 QTc: 432 Interpretive Statements SINUS RHYTHM INCOMPLETE RIGHT BUNDLE BRANCH BLOCK DELAYED PRECORDIAL R/S TRANSITION BORDERLINE ECG Electronically Signed On 01-03-2022 18:18:57 BSS SOLUTION ARCHITECT by Jonnathan Gamez D.O.
[2022-01-03 16:25] LABS: Basophils Absolute Auto 0.1 K/mm3 (0.0-0.1); Basophils Percent Auto 0.6 % (0.2-1.2); Eosinophils Absolute Auto 0.2 K/mm3 (0-0.3); Eosinophils Percent Auto 1.4 % (0-4.4); Hematocrit 42.3 % (42.0-52.0); Hemoglobin 13.8 g/dL (14.0-18.0); Immature Granulocyte Absolute 0.23 K/mm3 (0.00-0.031); Immature Granulocyte Percent A 1.7 % (0-0.5); Lymphocytes Absolute Auto 1.64 K/mm3 (0.9-3.2); Lymphocytes Percent Auto 12.3 % (18.3-44.2); Mean Corpuscular HGB Conc 32.6 g/dl (32-36); Mean Corpuscular Hemoglobin 32.1 pg (26-34); Mean Corpuscular Volume 98.4 fl (80-100); Mean Platelet Volume 9.6 fl (7.4-10.4); Monocytes Absolute Auto 1.2 K/mm3 (0.1-0.6); Monocytes Percent Auto 8.9 % (2.6-8.5); Neutrophils Percent Auto 75.1 % (45.5-73.1); Platelet Count Result 320 k/mm3 (150-375); Red Cell Distribution Width 14.1 % (11.5-14.5); White Blood Count 13.3 K/mm3 (4.5-10.0)
--- NOTE | 2022-01-03 17:04 | ED.DIZZY ---
HPI - Dizziness General Chief Complaint: Dizziness Stated Complaint: DIZZY Time Seen by Provider: 01/03/22 16:38 Source: patient, EMS and RN notes reviewed Mode of arrival: EMS Limitations: no limitations History of Present Illness HPI Narrative: 66-year-old male presented to the emergency department for evaluation of headache blurred vision and and worsening fatigue. Patient was recently admitted for VICTORIA. VICTORIA at that time was thought to be due to his Lasix. Patient did have improvement of his kidney function. When patient was first evaluated by EMS he was saturating at 90% on room air. Patient is not on oxygen at home. Upon arrival to the emergency department patient does have shortness of breath but states this is his typical baseline. Patient states that his headache is improved and denies any current double vision. Patient was vaccinated against COVID. Related Data Home Medications Medication Instructions Recorded Confirmed allopurinol 100 mg PO DAILY 08/25/21 12/23/21 finasteride 5 mg PO DAILY 08/25/21 12/23/21 metoprolol succinate 25 mg PO DAILY 08/25/21 12/23/21 quetiapine 50 mg PO HS 08/25/21 12/23/21 rosuvastatin 10 mg PO DAILY 08/25/21 12/23/21 tamsulosin 0.4 mg PO HS 08/25/21 12/23/21 amlodipine 2.5 mg PO DAILY 10/26/21 12/23/21 omeprazole 20 mg PO BID 10/26/21 12/23/21 albuterol sulfate 2.5 mg INHALATION Q4-6H PRN 12/05/21 12/23/21 montelukast 10 mg PO DAILY 12/05/21 12/23/21 oxycodone-acetaminophen 5 - 325 tablet PO Q6H PRN 12/05/21 12/23/21 bupropion HCl [Wellbutrin SR] 250 mg PO DAILY 12/23/21 12/23/21 nitroglycerin 0.4 mg SUBLINGUAL Q5-15M PRN 12/23/21 12/23/21 Allergies Allergy/AdvReac Type Severity Reaction Status Date / Time poison isabelle extract Allergy Mild RASH Verified 10/25/21 20:25 Review of Systems Review of Systems: CONSTITUTIONAL: Denies fever, chills, or sweats. EYES: Denies visual changes, redness, or discharge. ENT: Denies rhinorrhea, congestion, sore throat, or otalgia. CARDIOVASCULAR: Denies chest pain, palpitations, or edema. RESPIRATORY: Does report cough and congestion but denies any current shortness of breath GASTROINTESTINAL: Denies abdominal pain, nausea, vomiting, or diarrhea. GENITOURINARY: Denies dysuria or hematuria. SKIN: Denies rash or itching. MUSCULOSKELETAL: Denies back pain, joint pain, or myalgia. NEUROLOGIC: had headache and double vision, double vision is resolved PSYCHIATRIC: Denies anxiety or depression. All systems reviewed & are unremarkable except as noted in HPI and below PMFSH Past Medical History Medical History BPH (benign prostatic hyperplasia) CAD (coronary artery disease) Minimal blockages treated medically Chronic back pain Due to a pinched nerve COPD (chronic obstructive pulmonary disease) Depression Gout Hyperlipidemia Hypertension Surgical History Surgical History H/O cardiac catheterization Minimal blockages. History of back surgery History of kidney surgery Right kidney History of shoulder surgery On the left Family History Family History Mother Family history of malignant neoplasm of breast in first degree relative Diabetes mellitus Father Family history of throat cancer Sibling Cancer of back Social History Social History Social History: The patient is . He does have a significant other. Patient has smoked off and on for about 50 years up to 1.5 packs per day. He resume smoking 2 weeks ago. He drinks 15 alcoholic drinks per month. Denies drug use. The son is the durable power finance attorney for healthcare. . The patient has 2 children. Code status full code Smoking packs per day: 1 Smoking cigarettes per day: 20.0 Years smoked: 20 Smoking pack-years: 20.00 Smoking status: Former smok
[2022-01-03 17:15] LABS: Alanine Aminotransferase 46 U/L (4-50); Albumin Level 4.1 g/dL (3.5-5.1); Alkaline Phosphatase 127 U/L (38-126); Anion Gap 4 mmol/L (8-16); Aspartate Amino Transferase 48 U/L (17-59); Bilirubin,Total 0.6 mg/dL (0.2-1.3); Blood Urea Nitrogen 11 mg/dL (9-20); Calcium 8.9 mg/dL (8.4-10.2); Carbon Dioxide 23 mmol/L (22-30); Chloride 103 mmol/L (98-107); Estimated CRCL calculation 84 ml/min; Estimated Glomerular Filt Rate > 60; Glucose 114 mg/dL (65-110); Potassium 4.1 mmol/L (3.4-5.0); Sodium 130 mmol/L (137-145)
[2022-01-03 17:45] VITALS: BP 127/94; PULSE 104; RESP 26; O2SAT 94
[2022-01-03 17:49] VITALS: PULSE 106; RESP 25
[2022-01-03] MEDS: ALBUTEROL SULFATE NEB 2.5 MG/0.5 ML INH 5 MG INHALATION (17:50)
--- NOTE | 2022-01-03 17:52 | PCRCNOTE ---
Pt states He hates using nebulizer treatments. Pt denied Shortness of breath, but stated coughing that is non productive. Pts lung sounds were diminished through out. Pt agreed to do treatment but doesn't want another one.
[2022-01-03 18:25] VITALS: BP 129/76; PULSE 95; RESP 21; O2SAT 94
[2022-01-03 18:28] LABS: SARS-CoV-2 RNA PCR Negative
[2022-01-03 19:20] VITALS: BP 122/67; PULSE 100; RESP 20; TEMP 36.6; O2SAT 93
--- NOTE | 2022-01-03 19:20 | PC.NURSE ---
TOOK PT WITH MOBILE PULSE OX AROUND UNIT. PT O2 LEVEL STAYED BETWEEN 90-93%. REPORT GIVEN TO EDP DR. LITTLE.
== END 2022-01-03 19:29 | disposition home or self-care (01) ==
PROVIDERS: Emergency Medicine; Emergency Provider Emergency Medicine; PCP Internal Medicine
DX: R51.9 Headache, unspecified (principal); Z20.822 Contact with and (suspected) exposure to COVID-19; N40.0 Benign prostatic hyperplasia without lower urinary tract symptoms; I25.10 Atherosclerotic heart disease of native coronary artery without angina pectoris; J44.9 Chronic obstructive pulmonary disease, unspecified; I10 Essential (primary) hypertension; E78.5 Hyperlipidemia, unspecified; F32.9 Major depressive disorder, single episode, unspecified
CPT/HCPCS: 36415; 70450; 71045; 80053; 85025; 93005; 94640; 99284; C9803; U0003; U0005